=== PATIENT | female | born 1965 | race Asian ===

== ENCOUNTER 2020-03-12 17:19 | Inpatient (IN) | payer MEDICARE, MEDICAID ==
[~2020-03-12] VITALS: Ht 160 cm; Wt 88.8 kg
--- NOTE | 2020-03-12 11:55 | NUR ---
NURSE NOTES: Received admission orders from Dr. Faye. Will note and carry out. Addendum: 03/13/20 at 5430 by Agnieszka Nguyen Mai, RN WRONG DATE & TIME! CORRECT DATE & TIME IS 03/12/20 @ 1995
[~2020-03-12 17:19] MED LIST: ASPIRIN81 MG ORAL; ATORVASTATIN CA40 MG ORAL; CARVEDILOL6.25 MG ORAL; DIOVAN160 MG ORAL; FUROSEMIDE40 MG ORAL; GABAPENTIN100 MG ORAL; LANTUS SOL100 UNIT/1 SUBQ; LEVEMIR FL100 UNIT/1 SUBQ; METOLAZONE5 MG PO; NOVOLOG100 UNIT/3 SUBQ; POTASSIUM CHLO20 ME2 ORAL; STARLIX120 MG ORAL; ZOLPIDEM TARTRA10 MG ORAL
--- NOTE | 2020-03-12 17:36 | Emergency Room Report ---
History of Present Illness General Chief Complaint: Generalized Weakness Source: Patient, EMS Present Illness HPI Patient is a 54-year-old female past medical history of end-stage renal disease on peritoneal dialysis daily who presents to the ER complaining of generalized weakness. Patient states that her was admitted to the hospital 4 days ago for some sort of intestinal infection and since he does her peritoneal dialysis for her she has not had dialysis performed for the past 4 days. She complains of shortness of breath that started today. She denies any fever or chills. She denies any cough or chest pain. She denies any abdominal pain, nausea or vomiting. Patient states that the fluid in her dialysis late 4 days ago was clear. Allergies: Coded Allergies: No Known Allergies (Unverified , 11/24/15) COVID-19 Screening Contact w/high risk pt: No Recent Travel to affected area: No Experienced COVID-19 symptoms?: No COVID-19 Testing performed EDUCATION SUPERVISOR: No Patient History Reviewed Nursing Documentation: PMH: Agreed; PSxH: Agreed Nursing Documentation-PMH Hx Cardiac Problems: Yes Hx Hypertension: Yes Hx Diabetes: Yes Hx Cancer: No Hx Gastrointestinal Problems: No Hx Dialysis: Yes - ESRD Hx Neurological Problems: No Review of Systems All Other Systems: negative except mentioned in HPI Physical Exam Vital Signs Date Time Temp Pulse Resp B/P (MAP) Pulse Ox O2 Delivery O2 Flow Rate FiO2 03/12/20 17:14 98.6 74 19 158/74 (102) 93 Nasal Cannula 2.0 Sp02 EP Interpretation: abnormal General Appearance: no apparent distress, alert, GCS 15, non-toxic Head: normocephalic, atraumatic Eyes: bilateral eye normal inspection, bilateral eye PERRL ENT: hearing grossly normal, normal pharynx, no angioedema, normal voice Neck: full range of motion, supple/symm/no masses Respiratory: rales, other - RLL diminished breath sounds Cardiovascular #1: regular rate, rhythm, no edema Gastrointestinal: normal bowel sounds, non tender, soft, non-distended, no guarding, no rebound, other - dialysis catheter in place, clear diasylate in the tube Rectal: deferred Genitourinary: normal inspection, no CVA tenderness Musculoskeletal: back normal, normal range of motion, no calf tenderness, non- tender, swelling Neurologic: keg filler III-XII nml as tested, oriented x3 Psychiatric: no suicidal/homicidal ideation Skin: no rash Lymphatic: no adenopathy Medical Decision Making Diagnostic Impression: Primary Impression: Pleural effusion Additional Impressions: Pneumonia Anemia UTI (urinary tract infection) Hyperkalemia Chronic renal failure ER Course Patient fluid overloaded. Patient has missed her last 4 dialysis sessions. Patient's chest x-ray also demonstrates a right sided infiltrate. Patient also has UTI. Patient has been pancultured. Patient started on broad-spectrum IV antibiotics vancomycin as well as cefepime. Patient's potassium is 6.7. She has been given sodium bicarbonate, calcium gluconate, insulin and dextrose, Lasix since she still makes urine and Kayexalate. COVID-19 PCR sent and pending. Unable to do peritoneal dialysis at this facility. I spoke with the patient's admitting doctor who will arrange for a temporary non-tunneled catheter to be placed so that she can obtain dialysis while she is here. EKG Diagnostic Results EKG Time: 18:45 EP Interpretation: mD Pennie Rate: normal Rhythm: NSR ST Segments: no acute changes ASA given to the pt in ED: No Rhythm Strip Diag. Results Rhythm Strip Time: 21:15 EP Interpretation: yes - MD Pennie Rate: 90 Rhythm: NSR, no PVC's, no ectopy Chest X-Ray Diagnostic Results Chest X-Ray Diagnostic Results : Chest X-Ray Ordered: Yes # of Views/Limited/Complete: 1 View Indication: Shortness of Breath EP Interpretation: Yes Interpretation: no pneumothorax, other - R lower and middle lobe consolidation, R sided moderate pleural effusion Impression: Other - pneumonia and R sided pleural efussion Electronically Signed by: Beth Casper MD Last Vital Signs Date Time Temp Pulse Resp B/P (MAP) Pulse Ox O2 Delivery O2 Flow Rate FiO2 03/12/20 17:14 98.6 74 19 158/74 (102) 93 Nasal Cannula 2.0 Disposition: ADMITTED INPATIENT Condition: Critical Physician Consult: Dr. St at 915pm Beth Casper M.D. March 12, 2020 17:36
[2020-03-12] MEDS ORDERED: Vancomycin 1.25gm/NS Premix 275 ML IVPB STA (17:55)
[2020-03-12] MEDS ORDERED: Cefepime HCl 2 GM in D5W 55 ML IVPB ONE (18:00)
--- NOTE | 2020-03-12 18:01 | Diagnostic Imaging Report ---
EXAM: XR Chest, 1 View CLINICAL HISTORY: SOB TECHNIQUE: Frontal view of the chest. COMPARISON: 11/28/2015. FINDINGS: Lungs: Right lung infiltrates/edema, cannot exclude underlying pulmonary lesion. Pleural space: Moderate right pleural effusion. No pneumothorax. Heart: Cardiomegaly. Mediastinum: Unremarkable. Bones/joints: Unremarkable. Tubes, lines and devices: Left chest cardiac pacer. IMPRESSION: 1. Right lung infiltrates/edema, cannot exclude underlying pulmonary lesion. 2. Moderate right pleural effusion.
[2020-03-12] MEDS ORDERED: Vancomycin 1.5gm/NS Premix 275 ML IVPB STA (18:20)
[2020-03-12] MEDS ORDERED: Vancomycin 1.5gm vial IVPB ONE (18:27)
[2020-03-12 18:37] LABS: HEMATOCRIT 29.7 % (37.0-47.0); MEAN CORPUSCULAR VOLUME 99 FL (80-99); PLATELET COUNT 186 K/UL (150-450); WHITE BLOOD COUNT 11.1 K/UL (4.8-10.8)
[2020-03-12 18:45] LABS: APPEARANCE,URINE SLIGHTLY CLOUDY; BILIRUBIN, URINE NEGATIVE (NEGATIVE); COLOR,URINE PALE YELLOW; GLUCOSE, URINE (UA) 3+ (NEGATIVE); KETONES,URINE NEGATIVE (NEGATIVE); LEUKOCYTE ESTERASE ,URINE 3+ (NEGATIVE); NITRITE,URINE NEGATIVE (NEGATIVE); PH,URINE 5 (4.5-8.0); PROTEIN,URINE 4+ (NEGATIVE); UROBILINOGEN,URINE NORMAL MG/DL (0.0-1.0)
--- NOTE | 2020-03-12 18:45 | NUR ---
ED Nurse Note:pt. was BIBAom home with c/o generalized weakness, she is havn't had her peritonial dialysis for past 4 days, pt. is A/Ox4, blood and urine sent to labs, given IV antibiotics
[2020-03-12 19:24] VITALS: BP 158/74
--- NOTE | 2020-03-12 19:54 | NUR ---
ED Nurse Note: Received the report from Ramirez german. Additional lab sent. Pt is A) x 4 and VVS. Provided sandwitch and juice. Attached meter changes records clerk.
--- NOTE | 2020-03-12 20:27 | Consultation ---
History of Present Illness General Chief Complaint: Generalized Weakness Reason for Consultation: ESRD on PD Present Illness HPI This is a 54 year old female with past medical history of ESRD on PD, IDDM II, essential hypertension, hyperlipidemia and insomnia presenting with chest discomfort and leg swelling. Patient reports that her who assists her with the PD ended up in the hospital 5 days ago and since then she has not received her routine PD. Patient complains of feeling pressure all over her body due to volume overload. Patient also complains of productive cough. Denies any fever, chills, nausea, vomiting diarrhea, dysuria. On arrival to the ED, vitals were significant for BP: 158/72 mmHg. The CMP showed Hyperkalemia: 6.7, BUN: 108 and Cr: 12.5. The UA was significant for highly elevated WBC and 3+ LE. The CXR significant for R pleural effusion and right sided infiltrate suggestive of possible pneumonia. She has been on PD for the past one year primary nephrogist Dr. Bruno weiss Allergies: Coded Allergies: No Known Allergies (Unverified , 11/24/15) Medication History Scheduled Aspirin* (Aspirin*), 81 MG ORAL DAILY, (Reported) Atorvastatin Calcium* (Atorvastatin Calcium*), 40 MG ORAL BEDTIME, (Reported) Carvedilol* (Carvedilol*), 6.25 MG ORAL DAILY, (Reported) Furosemide* (Lasix*), 40 MG ORAL DAILY, (Reported) Gabapentin* (Gabapentin*), 100 MG ORAL THREE TIMES A DAY, (Reported) Insulin Glargine (Lantus), 10 UNITS SUBQ BEDTIME Nateglinide (Starlix), 120 MG ORAL TIAC Potassium Chloride (Potassium Chloride), 20 MEQ ORAL DAILY, (Reported) Scheduled PRN Zolpidem Tartrate* (Zolpidem Tartrate*), 10 MG ORAL BEDTIME PRN for Insomnia, ( Reported) Patient History Healthcare decision maker Resuscitation status Advanced Directive on File Review of Systems Constitutional: Reports: malaise, weakness Respiratory: Reports: cough, shortness of breath, wheezing Cardiovascular: Reports: palpitations Gastrointestinal: Denies: no symptoms, see HPI, abdominal pain, constipation, diarrhea, nausea, vomiting, melena, hematemesis, other Genitourinary: Denies: no symptoms, see HPI, discharge, dysuria, frequency, hematuria, pain, retention, incontinence, urgency, vag bleed/dc, other Musculoskeletal: Denies: no symptoms, see HPI, back pain, gout, joint pain, joint swelling, muscle pain, muscle stiffness, other Skin: Denies: no symptoms, see HPI, rash, change in color, change in hair/nails , dryness, lesions, other Psychiatric: Denies: no symptoms, see HPI, prior hx, anxiety, depressed feelings, emotional problems, SI, HI, hallucinations, other Neurological: Denies: no symptoms, see HPI, headache, numbness, paresthesia, seizure, tingling, tremors, focal weakness, syncope, dizziness, other Endocrine: Denies: no symptoms, see HPI, excessive sweating, flushing, intolerance to temperature, increased thirst, increased urine, unexplained weight loss, other Hematologic/Lymphatic: Denies: no symptoms, see HPI, anemia, blood clots, easy bleeding, easy bruising, swollen glands, diathesis, other All Other Systems: negative except mentioned in HPI Physical Exam General Appearance: WD/WN, no apparent distress Lines, tubes and drains: peripheral HEENT: normocephalic Neck: non-tender Respiratory/Chest: rhonchi - bilaterally Cardiovascular/Chest: normal peripheral pulses Abdomen: normal bowel sounds, non tender, soft, hypoactive bowel sounds, other - PD catheter clean dry intact Extremities: normal range of motion Neurologic: alert, oriented x 3 Last 24 Hour Vital Signs Date Time Temp Pulse Resp B/P (MAP) Pulse Ox O2 Delivery O2 Flow Rate FiO2 03/12/20 19:24 98.6 74 19 158/74 96 Nasal Cannula 2.0 03/12/20 19:24 74 19 Nasal Cannula 2.0 03/12/20 17:14 98.6 74 19 158/74 (102) 93 Nasal Cannula 2.0 Laboratory Tests Test 03/12/20 17:50 03/12/20 18:10 03/12/20 19:50 White Blood Count 11.1 K/UL (4.8-10.8) H Red Blood Count 3.00 M/UL (4.20-5.40) L Hemoglobin 9.0 G/DL (12.0-16.0) L Hematocrit 29.7 % (37.0-47.0) L Mean Corpuscular Volume 99 FL (80-99) Mean Corpuscular Hemoglobin 29.9 PG (27.0-31.0) Mean Corpuscular Hemoglobin Concent 30.2 G/DL (32.0-36.0) L Red Cell Distribution Width 15.0 % (11.6-14.8) H Platelet Count 186 K/UL (150-450) Mean Platelet Volume 8.4 FL (6.5-10.1) Neutrophils (%) (Auto) % (45.0-75.0) Lymphocytes (%) (Auto) % (20.0-45.0) Monocytes (%) (Auto) % (1.0-10.0) Eosinophils (%) (Auto) % (0.0-3.0) Basophils (%) (Auto) % (0.0-2.0) Differential Total Cells Counted 100 Neutrophils % (Manual) 87 % (45-75) H Lymphocytes % (Manual) 9 % (20-45) L Monocytes % (Manual) 2 % (1-10) Eosinophils % (Manual) 1 % (0-3) Basophils % (Manual) 1 % (0-2) Band Neutrophils 0 % (0-8) Nucleated Red Blood Cells 1 /100 WBC Platelet Estimate Adequate Platelet Morphology Normal Polychromasia 1+ Anisocytosis 1+ Macrocytosis 1+ Prothrombin Time 11.1 SEC (9.30-11.50) Prothromb Time International Ratio 1.0 (0.9-1.1) Activated Partial Thromboplast Time 31 SEC (23-33) Lactic Acid Level 0.80 mmol/L (0.4-2.0) Troponin I 0.006 ng/mL (0.000-0.056) Urine Color Pale yellow Urine Appearance Slightly cloudy Urine pH 5 (4.5-8.0) Urine Specific [place] 1.015 (1.005-1.035) Urine Protein 4+ (NEGATIVE) H Urine Glucose (UA) 3+ (NEGATIVE) H Urine Ketones Negative (NEGATIVE) Urine Blood 2+ (NEGATIVE) H Urine Nitrite Negative (NEGATIVE) Urine Bilirubin Negative (NEGATIVE) Urine Urobilinogen Normal MG/DL (0.0-1.0) Urine Leukocyte Esterase 3+ (NEGATIVE) H Urine RBC 2-4 /HPF (0 - 2) H Urine WBC Tntc /HPF (0 - 2) H Urine Squamous Epithelial Cells Occasional /LPF Urine Bacteria Few /HPF (NONE) Sodium Level Pending Potassium Level Pending Chloride Level Pending Carbon Dioxide Level Pending Blood Urea Nitrogen Pending Creatinine Pending Estimat Glomerular Filtration Rate Pending Glucose Level Pending Calcium Level Pending Magnesium Level Pending Total Bilirubin Pending Aspartate Amino Transf (AST/SGOT) Pending Alanine Aminotransferase (ALT/SGPT) Pending Alkaline Phosphatase Pending Total Creatine Kinase Pending Pro-B-Type Natriuretic Peptide Pending Total Protein Pending Albumin Pending Globulin Pending Height (Feet): 5 Height (Inches): 3.00 Weight (Pounds): 200 Assessment/Plan Diagnosis [place]: #ESRD in PD- missed PD due to not being available to help #hyperkalemia #volume overload #possible pneumonia #IDDM #HTN #HLD - admit inpatient - place HD line for emergent HD - insulin. D50, kayexalate, lasix - antibiotics per ID - pulm eval - BG control - ISS - continue coreg - continue lasix - continue lantus - check iron panel, ferritin - check PTH, vit D - monitor BMP, mag, phos daily time spent 70 min > 50% on care coordination and counseling Poli St M.D. March 12, 2020 20:27
[2020-03-12] MEDS ORDERED: fentaNYL 100 mcg/2 mL IV ONE (20:45)
[2020-03-12 21:01] LABS: ALANINE AMINOTRANSFERASE 9 U/L (12-78); ALBUMIN 2.6 G/DL (3.4-5.0); ALBUMIN/GLOBULIN RATIO 0.6 (1.0-2.7); ALKALINE PHOSPHATASE 80 U/L (46-116); ANION GAP 17 mmol/L (5-15); ASPARTATE AMINO TRANSFERASE 11 U/L (15-37); BILIRUBIN,TOTAL 0.4 MG/DL (0.2-1.0); BLOOD UREA NITROGEN 108 mg/dL (7-18); CALCIUM 8.5 MG/DL (8.5-10.1); CARBON DIOXIDE 19 MMOL/L (21-32); CHLORIDE 102 MMOL/L (98-107); CREATINE KINASE 157 U/L (26-308); CREATININE 12.5 MG/DL (0.55-1.30); SODIUM 140 MMOL/L (136-145)
[2020-03-12 21:03] LABS: POTASSIUM 6.7 MMOL/L (3.5-5.1)
[2020-03-12] MEDS ORDERED: Calcium Gluconate 1gm/10ml vial IVP ONE (21:15)
[2020-03-12] MEDS ORDERED: Sodium Polystyrene Sulfonate 15gm Powder ORAL ONE (21:15)
[2020-03-12] MEDS ORDERED: Insulin Human Regular 100units/ml 3ml IV ONE (21:15)
[2020-03-12] MEDS ORDERED: Sodium Bicarbonate 50ml Carp IV ONE (21:15)
--- NOTE | 2020-03-12 21:35 | History and Physical ---
History of Present Illness General Date patient seen: March 12, 2020 Reason for Hospitalization: Generalized WeaknessESRDHyperkalemia Present Illness HPI Mrs. Bernardo is a 54 YO F with ESRD on PD, IDDM II, essential hypertension, hyperlipidemia and insomnia presenting with chest discomfort and leg swelling. Patient reports that her who assists her with the PD ended up in the hospital 5 days ago and since then she has not received her routine PD. Patient complains of feeling pressure all over her body due to volume overload. Patient also complains of productive cough. Denies any fever, chills, nausea, vomiting diarrhea, dysuria. On arrival to the ED, vitals were significant for BP: 158/72 mmHg. The CMP showed Hyperkalemia: 6.7, BUN: 108 and Cr: 12.5. The UA was significant for highly elevated WBC and 3+ LE. The CXR significant for R pleural effusion and right sided infiltrate suggestive of possible pneumonia. Patient is being admitted for further observation and medical management. Allergies: Coded Allergies: No Known Allergies (Unverified , 11/24/15) COVID-19 Screening Contact w/high risk pt: No Recent Travel to affected area: No Experienced COVID-19 symptoms?: No Medication History Scheduled Aspirin* (Aspirin*), 81 MG ORAL DAILY, (Reported) Atorvastatin Calcium* (Atorvastatin Calcium*), 40 MG ORAL BEDTIME, (Reported) Carvedilol* (Carvedilol*), 6.25 MG ORAL DAILY, (Reported) Furosemide* (Lasix*), 40 MG ORAL DAILY, (Reported) Gabapentin* (Gabapentin*), 100 MG ORAL THREE TIMES A DAY, (Reported) Insulin Glargine (Lantus), 10 UNITS SUBQ BEDTIME Nateglinide (Starlix), 120 MG ORAL TIAC Potassium Chloride (Potassium Chloride), 20 MEQ ORAL DAILY, (Reported) Scheduled PRN Zolpidem Tartrate* (Zolpidem Tartrate*), 10 MG ORAL BEDTIME PRN for Insomnia, ( Reported) Patient History Healthcare decision maker Resuscitation status Advanced Directive on File Review of Systems Constitutional: Reports: weakness Eye: Reports: no symptoms ENT: Reports: no symptoms Respiratory: Reports: cough, shortness of breath Cardiovascular: Reports: no symptoms, edema Gastrointestinal: Reports: no symptoms Genitourinary: Reports: no symptoms Musculoskeletal: Reports: no symptoms Skin: Reports: no symptoms Psychiatric: Reports: no symptoms Neurological: Reports: no symptoms Endocrine: Reports: no symptoms Hematologic/Lymphatic: Reports: no symptoms Physical Exam General Appearance: alert, mild distress Lines, tubes and drains: peripheral HEENT: normocephalic, atraumatic Neck: non-tender, supple Respiratory/Chest: chest wall non-tender, lungs clear, normal breath sounds, no respiratory distress, no accessory muscle use Cardiovascular/Chest: normal peripheral pulses, normal rate, regular rhythm Abdomen: normal bowel sounds, soft, no organomegaly Extremities: normal range of motion Skin Exam: normal pigmentation Neurologic: alert, oriented x 3 Last 24 Hour Vital Signs Date Time Temp Pulse Resp B/P (MAP) Pulse Ox O2 Delivery O2 Flow Rate FiO2 03/12/20 19:24 98.6 74 19 158/74 96 Nasal Cannula 2.0 03/12/20 19:24 74 19 Nasal Cannula 2.0 03/12/20 17:14 98.6 74 19 158/74 (102) 93 Nasal Cannula 2.0 Laboratory Tests Test 03/12/20 17:50 03/12/20 18:10 03/12/20 20:35 White Blood Count 11.1 K/UL (4.8-10.8) H Red Blood Count 3.00 M/UL (4.20-5.40) L Hemoglobin 9.0 G/DL (12.0-16.0) L Hematocrit 29.7 % (37.0-47.0) L Mean Corpuscular Volume 99 FL (80-99) Mean Corpuscular Hemoglobin 29.9 PG (27.0-31.0) Mean Corpuscular Hemoglobin Concent 30.2 G/DL (32.0-36.0) L Red Cell Distribution Width 15.0 % (11.6-14.8) H Platelet Count 186 K/UL (150-450) Mean Platelet Volume 8.4 FL (6.5-10.1) Neutrophils (%) (Auto) % (45.0-75.0) Lymphocytes (%) (Auto) % (20.0-45.0) Monocytes (%) (Auto) % (1.0-10.0) Eosinophils (%) (Auto) % (0.0-3.0) Basophils (%) (Auto) % (0.0-2.0) Differential Total Cells Counted 100 Neutrophils % (Manual) 87 % (45-75) H Lymphocytes % (Manual) 9 % (20-45) L Monocytes % (Manual) 2 % (1-10) Eosinophils % (Manual) 1 % (0-3) Basophils % (Manual) 1 % (0-2) Band Neutrophils 0 % (0-8) Nucleated Red Blood Cells 1 /100 WBC Platelet Estimate Adequate Platelet Morphology Normal Polychromasia 1+ Anisocytosis 1+ Macrocytosis 1+ Prothrombin Time 11.1 SEC (9.30-11.50) Prothromb Time International Ratio 1.0 (0.9-1.1) Activated Partial Thromboplast Time 31 SEC (23-33) Lactic Acid Level 0.80 mmol/L (0.4-2.0) Troponin I 0.006 ng/mL (0.000-0.056) Urine Color Pale yellow Urine Appearance Slightly cloudy Urine pH 5 (4.5-8.0) Urine Specific [place] 1.015 (1.005-1.035) Urine Protein 4+ (NEGATIVE) H Urine Glucose (UA) 3+ (NEGATIVE) H Urine Ketones Negative (NEGATIVE) Urine Blood 2+ (NEGATIVE) H Urine Nitrite Negative (NEGATIVE) Urine Bilirubin Negative (NEGATIVE) Urine Urobilinogen Normal MG/DL (0.0-1.0) Urine Leukocyte Esterase 3+ (NEGATIVE) H Urine RBC 2-4 /HPF (0 - 2) H Urine WBC Tntc /HPF (0 - 2) H Urine Squamous Epithelial Cells Occasional /LPF Urine Bacteria Few /HPF (NONE) Sodium Level 140 MMOL/L (136-145) Potassium Level 6.7 MMOL/L (3.5-5.1) *H Chloride Level 102 MMOL/L (98-107) Carbon Dioxide Level 19 MMOL/L (21-32) L Anion Gap 17 mmol/L (5-15) H Blood Urea Nitrogen 108 mg/dL (7-18) H Creatinine 12.5 MG/DL (0.55-1.30) H Estimat Glomerular Filtration Rate 3.1 mL/min (>60) Glucose Level 194 MG/DL (74-106) H Calcium Level 8.5 MG/DL (8.5-10.1) Magnesium Level 3.6 MG/DL (1.8-2.4) H Total Bilirubin 0.4 MG/DL (0.2-1.0) Aspartate Amino Transf (AST/SGOT) 11 U/L (15-37) L Alanine Aminotransferase (ALT/SGPT) 9 U/L (12-78) L Alkaline Phosphatase 80 U/L (46-116) Total Creatine Kinase 157 U/L (26-308) Pro-B-Type Natriuretic Peptide > 19729 pg/mL (0-125) H Total Protein 6.9 G/DL (6.4-8.2) Albumin 2.6 G/DL (3.4-5.0) L Globulin 4.3 g/dL Albumin/Globulin Ratio 0.6 (1.0-2.7) L Height (Feet): 5 Height (Inches): 3.00 Weight (Pounds): 200 Assessment/Plan Assessment/Plan: 54 F with HTN, IDDM II, ESRD on PD presenting after missing 5 days of her peritoneal dialysis. 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 -s/p Insulin, D5, Kayexalate and Sodium Bicarb in the ED -Dr. Elias from [facility] consulted for femoral temporary hemodialysis catheter insertion -Dr. St of nephrology consulted. Appreciate further recommendations. -Continue to monitor lytes. -Renal diet. #Cough #R. lung infiltrate concerning for CAP -Started Vancomycin and Cefepime given high risk. -Blood cultures ordered. -ID consult in the A.M for additional recommendations. #Urinary tract infection: -UA significant for highly elevated WBC and 3 + LE. -Follow urine and blood cultures. -Continue with Vancomycin and Cefepime. #Insulin dependant type II DM: -Resume home Lantus 10 U QHS -Insulin Sliding Scale. #Essential hypertension: -Resume home Lasix 40 MG PO QD -Resume home Coreg 6.25 MG PO BID. -Continue to monitor. #Hyperlipidemia: -Resume home Lipitor 40 MG PO QD. I spent~72~minutes on this patient's case, and 35~minutes was dedicated to counseling and/or care coordination. Case discussed extensively with the caregiver (Michael). Case discussed with the RN. I spent an additional 32~min on chart review including prior consult notes, progress notes, procedures, imaging, labs hemodynamics and clinical documentation. Christopher Faye M.D. March 12, 2020 21:35
--- NOTE | 2020-03-12 22:00 | NUR ---
TRANSFER TO FLOOR: Patient transferred to tele as ordered, per MD Alma Rosa. Report given to Pepper. Belongings and admissiomn packet were sent with pt. Pt was transfered with 1 RN and 1 tech with [place]. Droplet precausion and safety were observed.
--- NOTE | 2020-03-12 22:15 | NUR ---
NURSE NOTES: Received pt from ED via [facility]. Pt transferred to [facility] without and incident. Pt is A/Ox4. [place] pt to room and unit. Received report from TAMARA Pope. cardiac monitor technician is in placed; pt is NSR. IV site intact, asymptomatic, and patent. Belonging list checked and signed. Bed is in the lowest position and locked. Call light and bedside table is within reach. No signs/symptoms of acute distress noted at this time. Will contact MD for admission orders.
[2020-03-13] VITALS: BP 158/75
[2020-03-13] MEDS ORDERED: Zolpidem 5mg tab ORAL PRN (01:15)
[2020-03-13] MEDS: Levemir Flexpen SUBQ SCH ×2 (01:30→22:04)
[2020-03-13 04:00] VITALS: BP 155/73
[2020-03-13] MEDS: NovoLOG Insulin Flexpen SUBQ SCH ×4 (06:18→22:04)
--- NOTE | 2020-03-13 07:56 | NUR ---
HAND-OFF: Report given to TAMARA West. Plan of care endorsed.
--- NOTE | 2020-03-13 07:57 | NUR ---
NURSE NOTES: Received patient in bed asleep. O2 via NC in place, no SOB or acute distress. IV line intact. Peritoneal dialysis intact. HOB elevated. Bed locked in lowest position. Call light within reach. Will continue plan of care.
[2020-03-13 08:00] VITALS: BP 163/75
[2020-03-13] MEDS: Carvedilol 6.25mg Tab ORAL SCH ×2 (08:23→18:37)
[2020-03-13] MEDS: Furosemide 40mg tab ORAL SCH (08:24)
[2020-03-13 08:48] LABS: BASOPHILS % (AUTO) 1.5 % (0.0-2.0); EOSINOPHILS % (AUTO) 2.7 % (0.0-3.0); HEMATOCRIT 25.2 % (37.0-47.0); HEMOGLOBIN 8.6 G/DL (12.0-16.0); LYMPHOCYTES % (AUTO) 6.8 % (20.0-45.0); MEAN CORPUSCULAR VOLUME 91 FL (80-99); MONOCYTES % (AUTO) 5.4 % (1.0-10.0); NEUTROPHILS % (AUTO) 83.6 % (45.0-75.0); PLATELET COUNT 184 K/UL (150-450); RED BLOOD COUNT 2.77 M/UL (4.20-5.40); RED CELL DISTRIBUTION WIDTH 13.2 % (11.6-14.8); WHITE BLOOD COUNT 13.2 K/UL (4.8-10.8)
[2020-03-13] MEDS ORDERED: Aspirin Baby 81mg ORAL SCH (09:00)
[2020-03-13] MEDS ORDERED: Heparin 5000 units/ml inj SUBQ SCH (09:00)
--- NOTE | 2020-03-13 09:00 | NUR ---
NURSE NOTES: IV line found out, for reinsertion.
[2020-03-13 09:56] LABS: ALANINE AMINOTRANSFERASE 9 U/L (12-78); ALBUMIN 2.5 G/DL (3.4-5.0); ALBUMIN/GLOBULIN RATIO 0.5 (1.0-2.7); ALKALINE PHOSPHATASE 83 U/L (46-116); ANION GAP 19 mmol/L (5-15); ASPARTATE AMINO TRANSFERASE 16 U/L (15-37); BILIRUBIN,TOTAL 0.5 MG/DL (0.2-1.0); BLOOD UREA NITROGEN 109 mg/dL (7-18); CALCIUM 8.3 MG/DL (8.5-10.1); CARBON DIOXIDE 20 MMOL/L (21-32); CHLORIDE 101 MMOL/L (98-107); CREATININE 12.7 MG/DL (0.55-1.30); PHOSPHORUS 10.5 MG/DL (2.5-4.9); SODIUM 141 MMOL/L (136-145)
[2020-03-13 09:59] LABS: POTASSIUM 6.5 MMOL/L (3.5-5.1)
[2020-03-13] MEDS ORDERED: Lidocaine 1% 10mg/ml/EPI 0.01mg/ml 30ml INJ ONE (10:30)
--- NOTE | 2020-03-13 10:33 | Consultation ---
History of Present Illness General Date patient seen: March 12, 2020 Reason for Hospitalization: Generalized Weakness Present Illness HPI This is a 54-year-old female was very pleasant presented to [facility] for evaluation of generalized weakness fatigue states that she usually has peritoneal dialysis daily but for the past 4 days she has been unable to have it given that her usually helps her provide it at home but her is currently [facility] with potential intestinal cancer and has not been unable to help her and she has deteriorated significantly. In emergency were identified to have a initial potassium of 6.7. Surgery called to evaluate and assist with care patient will likely need urgent dialysis soon depending on medical management and does not have hemodialysis access in. Dialysis in the inpatient setting with her current condition would not be sufficient. Allergies: Coded Allergies: No Known Allergies (Unverified , 11/24/15) COVID-19 Screening Contact w/high risk pt: No Recent Travel to affected area: No Experienced COVID-19 symptoms?: No Medication History Scheduled Aspirin* (Aspirin*), 81 MG ORAL DAILY, (Reported) Atorvastatin Calcium* (Atorvastatin Calcium*), 40 MG ORAL BEDTIME, (Reported) Carvedilol* (Carvedilol*), 6.25 MG ORAL DAILY, (Reported) Furosemide* (Lasix*), 40 MG ORAL DAILY, (Reported) Gabapentin* (Gabapentin*), 100 MG ORAL THREE TIMES A DAY, (Reported) Insulin Glargine (Lantus), 10 UNITS SUBQ BEDTIME Nateglinide (Starlix), 120 MG ORAL TIAC Potassium Chloride (Potassium Chloride), 20 MEQ ORAL DAILY, (Reported) Scheduled PRN Zolpidem Tartrate* (Zolpidem Tartrate*), 10 MG ORAL BEDTIME PRN for Insomnia, ( Reported) Patient History History Provided By: Patient, Medical Record, PMD Healthcare decision maker Resuscitation status Advanced Directive on File Past Medical/Surgical History Past Medical/Surgical History: (1) Dehydration (2) Anemia (3) Pleural effusion (4) UTI (urinary tract infection) (5) Chronic renal failure (6) Pneumonia (7) Hyperkalemia (8) Type 2 diabetes mellitus, uncontrolled (9) Elevated brain natriuretic peptide (BNP) level (10) Azotemia (11) Bronchitis (12) Intractable nausea and vomiting (13) Vomiting (14) Chest pain, rule out acute myocardial infarction (15) Asthma (16) Acute dyspnea (17) Functional quadriplegia Review of Systems Review of Symptoms General ROS: no weight loss or fever Psychological ROS: no depression or mood changes, no memory loss Ophthalmic ROS: no visual changes or eye irritation ENT ROS: no nasal congestion, hearing loss, dizziness Allergy and Immunology ROS: no allergic symptoms or urticaria Hematological and Lymphatic ROS: no swollen glands, unusual bleeding or bruising Endocrine ROS: no polyuria, polydipsia, weight changes, temperature intolerance Respiratory ROS: no cough, shortness of breath, or wheezing Cardiovascular ROS: no chest pain or dyspnea on exertion Gastrointestinal ROS: denies abdominal pain, bright red blood in stool. Musculoskeletal ROS: no myalgias or arthralgias Neurological ROS: no TIA or stroke symptoms Dermatological ROS: no new or changing skin lesions, rashes or pruritis Physical Exam Physical Exam General appearance: alert, cooperative, no distress, appears stated age Head: Normocephalic, without obvious abnormality, atraumatic Eyes: conjunctivae/corneas clear. PERRL, EOM's intact. Fundi benign Throat: Lips, mucosa, and tongue normal. Teeth and gums normal Neck: supple, symmetrical, trachea midline, no adenopathy, thyroid: not enlarged, symmetric, no tenderness/mass/nodules, no carotid bruit and no JVD Lungs: clear to auscultation bilaterally Heart: regular rate and rhythm, S1, S2 normal, no murmur, click, rub or gallop Abdomen: soft, non-tender. Bowel sounds normal. No masses, no organomegaly ++ PD cath okay Extremities: extremities normal, atraumatic, no cyanosis or edema Pulses: 2+ and symmetric Skin: Skin color, texture, turgor normal. No rashes or lesions Neurologic: Grossly normal Last 24 Hour Vital Signs Date Time Temp Pulse Resp B/P (MAP) Pulse Ox O2 Delivery O2 Flow Rate FiO2 03/13/20 08:27 163/75 03/13/20 08:23 86 163/75 03/13/20 08:00 98.8 86 18 163/75 (104) 93 03/13/20 04:00 79 03/13/20 04:00 98.5 79 19 155/73 (100) 98 03/13/20 00:00 80 03/13/20 00:00 97.7 83 19 158/75 (102) 98 03/12/20 22:44 Nasal Cannula 2.0 03/12/20 22:44 81 03/12/20 22:00 98.6 74 19 158/ 96 Nasal Cannula 2.0 03/12/20 21:21 98.6 03/12/20 19:24 98.6 74 19 158/74 96 Nasal Cannula 2.0 03/12/20 19:24 74 19 Nasal Cannula 2.0 03/12/20 17:14 98.6 74 19 158/ (102) 93 Nasal Cannula 2.0 Laboratory Tests Test 03/12/20 17:50 03/12/20 18:10 03/12/20 20:35 03/13/20 08:00 White Blood Count 11.1 K/UL (4.8-10.8) H 13.2 K/UL (4.8-10.8) H Red Blood Count 3.00 M/UL (4.20-5.40) L 2.77 M/UL (4.20-5.40) L Hemoglobin 9.0 G/DL (12.0-16.0) L 8.6 G/DL (12.0-16.0) L Hematocrit 29.7 % (37.0-47.0) L 25.2 % (37.0-47.0) L Mean Corpuscular Volume 99 FL (80-99) 91 FL (80-99) # Mean Corpuscular Hemoglobin 29.9 PG (27.0-31.0) 31.1 PG (27.0-31.0) H Mean Corpuscular Hemoglobin Concent 30.2 G/DL (32.0-36.0) L 34.2 G/DL (32.0-36.0) Red Cell Distribution Width 15.0 % (11.6-14.8) H 13.2 % (11.6-14.8) Platelet Count 186 K/UL (150-450) 184 K/UL (150-450) Mean Platelet Volume 8.4 FL (6.5-10.1) 7.0 FL (6.5-10.1) Neutrophils (%) (Auto) % (45.0-75.0) 83.6 % (45.0-75.0) H Lymphocytes (%) (Auto) % (20.0-45.0) 6.8 % (20.0-45.0) L Monocytes (%) (Auto) % (1.0-10.0) 5.4 % (1.0-10.0) Eosinophils (%) (Auto) % (0.0-3.0) 2.7 % (0.0-3.0) Basophils (%) (Auto) % (0.0-2.0) 1.5 % (0.0-2.0) Differential Total Cells Counted 100 Neutrophils % (Manual) 87 % (45-75) H Lymphocytes % (Manual) 9 % (20-45) L Monocytes % (Manual) 2 % (1-10) Eosinophils % (Manual) 1 % (0-3) Basophils % (Manual) 1 % (0-2) Band Neutrophils 0 % (0-8) Nucleated Red Blood Cells 1 /100 WBC Platelet Estimate Adequate Platelet Morphology Normal Polychromasia 1+ Anisocytosis 1+ Macrocytosis 1+ Prothrombin Time 11.1 SEC (9.30-11.50) Prothromb Time International Ratio 1.0 (0.9-1.1) Activated Partial Thromboplast Time 31 SEC (23-33) Lactic Acid Level 0.80 mmol/L (0.4-2.0) Troponin I 0.006 ng/mL (0.000-0.056) Urine Color Pale yellow Urine Appearance Slightly cloudy Urine pH 5 (4.5-8.0) Urine Specific [place] 1.015 (1.005-1.035) Urine Protein 4+ (NEGATIVE) H Urine Glucose (UA) 3+ (NEGATIVE) H Urine Ketones Negative (NEGATIVE) Urine Blood 2+ (NEGATIVE) H Urine Nitrite Negative (NEGATIVE) Urine Bilirubin Negative (NEGATIVE) Urine Urobilinogen Normal MG/DL (0.0-1.0) Urine Leukocyte Esterase 3+ (NEGATIVE) H Urine RBC 2-4 /HPF (0 - 2) H Urine WBC Tntc /HPF (0 - 2) H Urine Squamous Epithelial Cells Occasional /LPF Urine Bacteria Few /HPF (NONE) Sodium Level 140 MMOL/L (136-145) 141 MMOL/L (136-145) Potassium Level 6.7 MMOL/L (3.5-5.1) *H 6.5 MMOL/L (3.5-5.1) *H Chloride Level 102 MMOL/L (98-107) 101 MMOL/L (98-107) Carbon Dioxide Level 19 MMOL/L (21-32) L 20 MMOL/L (21-32) L Anion Gap 17 mmol/L (5-15) H 19 mmol/L (5-15) H Blood Urea Nitrogen 108 mg/dL (7-18) H 109 mg/dL (7-18) H Creatinine 12.5 MG/DL (0.55-1.30) H 12.7 MG/DL (0.55-1.30) H Estimat Glomerular Filtration Rate 3.1 mL/min (>60) 3.0 mL/min (>60) Glucose Level 194 MG/DL (74-106) H 165 MG/DL (74-106) H Calcium Level 8.5 MG/DL (8.5-10.1) 8.3 MG/DL (8.5-10.1) L Magnesium Level 3.6 MG/DL (1.8-2.4) H 3.5 MG/DL (1.8-2.4) H Total Bilirubin 0.4 MG/DL (0.2-1.0) 0.5 MG/DL (0.2-1.0) Aspartate Amino Transf (AST/SGOT) 11 U/L (15-37) L 16 U/L (15-37) Alanine Aminotransferase (ALT/SGPT) 9 U/L (12-78) L 9 U/L (12-78) L Alkaline Phosphatase 80 U/L (46-116) 83 U/L (46-116) Total Creatine Kinase 157 U/L (26-308) Pro-B-Type Natriuretic Peptide > 39011 pg/mL (0-125) H Total Protein 6.9 G/DL (6.4-8.2) 7.2 G/DL (6.4-8.2) Albumin 2.6 G/DL (3.4-5.0) L 2.5 G/DL (3.4-5.0) L Globulin 4.3 g/dL 4.7 g/dL Albumin/Globulin Ratio 0.6 (1.0-2.7) L 0.5 (1.0-2.7) L Phosphorus Level 10.5 MG/DL (2.5-4.9) H Microbiology Date/Time Source Procedure Growth Status 03/12/20 18:10 Urine,Clean Catch Urine Culture - Preliminary NO GROWTH Resulted 03/12/20 22:12 Rectum Received Height (Feet): 5 Height (Inches): 3.00 Weight (Pounds): 200 Medications Current Medications Medications (Trade) Dose Ordered Sig/Amarilis Route PRN Reason Start Time Stop Time Status Last Admin Dose Admin Acetaminophen/ Hydrocodone Bitart ([place] 5/325) 1 tab Q6H PRN ORAL For Pain 03/13/20 10:15 03/20/20 10:14 Aspirin (ASA) 81 mg DAILY ORAL 03/13/20 09:00 04/27/20 08:59 03/13/20 08:21 Atorvastatin Calcium (Lipitor) 40 mg BEDTIME ORAL 03/13/20 21:00 06/11/20 20:59 Carvedilol (Coreg) 6.25 mg BID ORAL 03/13/20 09:00 04/12/20 08:59 03/13/20 08:23 Cefepime HCl 1 gm/ Dextrose 55 ml @ 110 mls/hr Q24H IVPB 03/13/20 18:00 03/20/20 17:59 Clonidine HCl (Catapres Tab) 0.1 mg Q6H PRN ORAL For High Blood Pressure 03/13/20 01:00 06/11/20 00:59 03/13/20 08:27 Dextrose (Dextrose 50%) 25 ml Q30M PRN IV Hypoglycemia 03/13/20 01:00 06/11/20 00:59 Dextrose (Dextrose 50%) 50 ml Q30M PRN IV Hypoglycemia 03/13/20 01:00 06/11/20 00:59 Furosemide (Lasix) 40 mg DAILY ORAL 03/13/20 09:00 04/12/20 08:59 03/13/20 08:24 Gabapentin (Neurontin) 100 mg THREE TIMES A DAY ORAL 03/13/20 09:00 04/12/20 08:59 03/13/20 08:23 Heparin Sodium (Porcine) (Heparin 5000 units/ml) 5,000 units EVERY 12 HOURS SUBQ 03/13/20 09:00 04/27/20 08:59 03/13/20 08:25 Insulin Aspart (NovoLOG) BEFORE MEALS AND HS SUBQ 03/13/20 06:30 06/11/20 06:29 Insulin Detemir (Levemir) 10 units BEDTIME SUBQ 03/13/20 01:30 06/11/20 01:29 Lidocaine/ Epinephrine (Lidocaine 1%/ Epi 0.01mg 30ml) 1 ml ONCE ONCE INJ 03/13/20 10:30 03/13/20 10:31 Vancomycin HCl (Vanco rx to dose) 1 ea DAILY MISC 03/13/20 09:00 04/12/20 08:59 Zolpidem Tartrate (Ambien) 5 mg BEDTIME PRN ORAL Insomnia 03/13/20 01:15 03/20/20 01:14 Assessment/Plan Problem List: (1) Anemia ICD Codes: D64.9 - Anemia, unspecified SNOMED: 667145042 (2) Pleural effusion ICD Codes: J90 - Pleural effusion, not elsewhere classified SNOMED: 98622502 (3) UTI (urinary tract infection) ICD Codes: N39.0 - Urinary tract infection, site not specified SNOMED: 11741318 (4) Chronic renal failure ICD Codes: N18.9 - Chronic kidney disease, unspecified SNOMED: 27194019 (5) Pneumonia ICD Codes: J18.9 - Pneumonia, unspecified organism SNOMED: 268474209 (6) Dehydration ICD Codes: E86.0 - Dehydration SNOMED: 42487237 (7) Hyperkalemia Assessment & Plan: Leukocytosis hyperkalemia with medical management since seen last night to the course of today patient's potassium is only gone from 6.7 -6.5 and will likely worsen her given condition. She is symptomatic ill- appearing and will require hemodialysis. Does not have access hemodialysis access indicated recommended. Risk benefits alternative discussed patient in detail line placed at bedside. Coags noted labs noted patient chart reviewed in detail We will monitor overnight and place right femoral dialysis line. Please see procedure note. Late entry as patient seen prior HD as per nephrology Okay for diet from surgical standpoint We will follow with recommendations Thank you for let me participate in patient's care ICD Codes: E87.5 - Hyperkalemia SNOMED: 08940432 (8) Type 2 diabetes mellitus, uncontrolled ICD Codes: E11.65 - Type 2 diabetes mellitus with hyperglycemia SNOMED: 648344693 (9) Elevated brain natriuretic peptide (BNP) level ICD Codes: R79.89 - Other specified abnormal findings of blood chemistry SNOMED: 833861889 (10) Azotemia ICD Codes: R79.89 - Other specified abnormal findings of blood chemistry SNOMED: 611281760 (11) Bronchitis ICD Codes: J40 - Bronchitis, not specified as acute or chronic SNOMED: 30725770 (12) Vomiting ICD Codes: R11.10 - Vomiting, unspecified SNOMED: 878735477 (13) Intractable nausea and vomiting ICD Codes: R11.2 - Nausea with vomiting, unspecified SNOMED: 858698248, 702984711 (14) Asthma ICD Codes: J45.909 - Unspecified asthma, uncomplicated SNOMED: 897366682 (15) Chest pain, rule out acute myocardial infarction ICD Codes: R07.9 - Chest pain, unspecified SNOMED: 79015686 (16) Acute dyspnea ICD Codes: R06.00 - Dyspnea, unspecified SNOMED: 297095625 (17) Functional quadriplegia ICD Codes: R53.2 - Functional quadriplegia SNOMED: 440121869104100 Landon Elias March 13, 2020 10:33
--- NOTE | 2020-03-13 10:36 | Operative Note - PDOC ---
Operative Note Operative Note Date of Operation/Procedure: March 13, 2020 Pre-op Diagnosis: Hyperkalemia renal insufficiency sepsis Procedure: Right femoral temporary hemodialysis catheter insertion Post-op Diagnosis: same as pre-op Surgeon: Landon Elias MD Anesthesia: local Specimen: none Condition: stable Estimated Blood Loss: minimal Drains: none Implant(s) used?: No Indications for Procedure This is a 54-year-old female with end-stage renal disease currently on peritoneal dialysis who is missed 4 days given her helps her and he is currently in the a different hospital. She has a potassium of greater than 6 which is not improving significantly medical management and is deteriorating will need hemodialysis spoke with patient's medical teams and nephrology patient does not have access needs asked after hemodialysis until peritoneal dialysis can be resumed. Risk-benefit alternatives discussed patient in detail at the bedside. Patient expressed understanding consented to procedure. Description of Procedure Patient was made comfortable the bedside. His right groin is prepped draped in the same surgical fashion. Local anesthetic was infiltrated. On first pass the right femoral artery was cannulated with a needle immediately removed and pressure held for approximately 20 minutes until hemostasis noted. On second stick right femoral vein was cannulated without complication and guidewire passed to the needle needle removed and discarded. Small skin incision made around the guidewire and dilators used. A temporary hemodialysis catheter was inserted over the guidewire and guidewire removed. Both ports aspirated and flushed without any complication. Line sutured in place. Area over the prior initial past was reapproximated with a suture as well. Dressings were applied. Good hemostasis noted at the end of the procedure. Discussed operative care and plan and ensure procedure evaluation with patient. Discussed with nursing staff will monitor for hematoma formation and/or bleeding. Currently hemostatic and stable. No blood thinners. Thank you Landon Elias March 13, 2020 10:36
[2020-03-13] MEDS: HYDROcodone/Acetamin 5/325 tab ORAL PRN (10:39)
--- NOTE | 2020-03-13 10:54 | General Progress Note ---
Assessment/Plan Assessment/Plan: Assessment #ESRD on PD; malfunctioning PD cath, acutely requiring HD access s/p placement w / associated hyperkalemia presenting at >6 #R/O COVID vs HCAP vs Pulmonary Edema; CXR cannot rule out underlying lesion #Sepsis; Ddx CAP vs PD cath infection, pending paz cultures, peritoneal fluid studies #Uremia/Metabolic Acidosis #HTN #DMII Plan Consultants include surgery s/p HD access, Cardio, Nephro Continue Vancomycin and Cefepime IV, Paz Cx COVID pending , obtain predictive markers Coreg and Atorvastatin, Lasix PO; adjust prn, BP to improve w/ aggressive HD Weight based insulin dosing, goal blood sugar less then 180 while inpatient, Levemir QHS Obtain and Reconcile home meds Maeve/1800 ADA Diet DVT ppx *F/U with nephro; if patient is going to be transitioning to HD permanently will need to arrange outpatient HD and coordinate w/ CM. Subjective Allergies: Coded Allergies: No Known Allergies (Unverified , 11/24/15) Subjective Patient sleeping; states she is doing fine. Note right femoral kiana catheter , previous PD cath noted. Denies nausea and vomiting Objective Last 24 Hour Vital Signs Date Time Temp Pulse Resp B/P (MAP) Pulse Ox O2 Delivery O2 Flow Rate FiO2 03/13/20 08:27 163/75 03/13/20 08:23 86 163/75 03/13/20 08:00 98.8 86 18 163/75 (104) 93 03/13/20 04:00 79 03/13/20 04:00 98.5 79 19 155/73 (100) 98 03/13/20 00:00 80 03/13/20 00:00 97.7 83 19 158/75 (102) 98 03/12/20 22:44 Nasal Cannula 2.0 03/12/20 22:44 81 03/12/20 22:00 98.6 74 19 158/74 96 Nasal Cannula 2.0 03/12/20 21:21 98.6 03/12/20 19:24 98.6 74 19 158/74 96 Nasal Cannula 2.0 03/12/20 19:24 74 19 Nasal Cannula 2.0 03/12/20 17:14 98.6 74 19 158/74 (102) 93 Nasal Cannula 2.0 Laboratory Tests 03/12/20 17:50: White Blood Count 11.1H, Red Blood Count 3.00L, Hemoglobin 9.0L, Hematocrit 29.7L, Mean Corpuscular Volume 99, Mean Corpuscular Hemoglobin 29.9, Mean Corpuscular Hemoglobin Concent 30.2L, Red Cell Distribution Width 15.0H, Platelet Count 186, Mean Platelet Volume 8.4, Neutrophils (%) (Auto) , Lymphocytes (%) (Auto) , Monocytes (%) (Auto) , Eosinophils (%) (Auto) , Basophils (%) (Auto) , Differential Total Cells Counted 100, Neutrophils % ( Manual) 87H, Lymphocytes % (Manual) 9L, Monocytes % (Manual) 2, Eosinophils % ( Manual) 1, Basophils % (Manual) 1, Band Neutrophils 0, Nucleated Red Blood Cells 1, Platelet Estimate Adequate, Platelet Morphology Normal, Polychromasia 1 +, Anisocytosis 1+, Macrocytosis 1+, Prothrombin Time 11.1, Prothromb Time International Ratio 1.0, Activated Partial Thromboplast Time 31, Lactic Acid Level 0.80, Troponin I 0.006 03/12/20 18:10: Urine Color Pale yellow, Urine Appearance Slightly cloudy, Urine pH 5, Urine Specific [place] 1.015, Urine Protein 4+H, Urine Glucose (UA) 3+H, Urine Ketones Negative, Urine Blood 2+H, Urine Nitrite Negative, Urine Bilirubin Negative, Urine Urobilinogen Normal, Urine Leukocyte Esterase 3+H, Urine RBC 2- 4H, Urine WBC TntcH, Urine Squamous Epithelial Cells Occasional, Urine Bacteria Few 03/12/20 20:35: Sodium Level 140, Potassium Level 6.7*H, Chloride Level 102, Carbon Dioxide Level 19L, Anion Gap 17H, Blood Urea Nitrogen 108H, Creatinine 12.5H, Estimat Glomerular Filtration Rate 3.1, Glucose Level 194H, Calcium Level 8.5, Magnesium Level 3.6H, Total Bilirubin 0.4, Aspartate Amino Transf (AST/SGOT) 11L , Alanine Aminotransferase (ALT/SGPT) 9L, Alkaline Phosphatase 80, Total Creatine Kinase 157, Pro-B-Type Natriuretic Peptide > 76077S, Total Protein 6.9 , Albumin 2.6L, Globulin 4.3, Albumin/Globulin Ratio 0.6L 03/13/20 08:00: White Blood Count 13.2H, Red Blood Count 2.77L, Hemoglobin 8.6L, Hematocrit 25.2L, Mean Corpuscular Volume 91#, Mean Corpuscular Hemoglobin 31.1H, Mean Corpuscular Hemoglobin Concent 34.2, Red Cell Distribution Width 13.2, Platelet Count 184, Mean Platelet Volume 7.0, Neutrophils (%) (Auto) 83.6H, Lymphocytes ( %) (Auto) 6.8L, Monocytes (%) (Auto) 5.4, Eosinophils (%) (Auto) 2.7, Basophils (%) (Auto) 1.5, Sodium Level 141, Potassium Level 6.5*H, Chloride Level 101, Carbon Dioxide Level 20L, Anion Gap 19H, Blood Urea Nitrogen 109H, Creatinine 12.7H, Estimat Glomerular Filtration Rate 3.0, Glucose Level 165H, Calcium Level 8.3L, Magnesium Level 3.5H, Total Bilirubin 0.5, Aspartate Amino Transf ( AST/SGOT) 16, Alanine Aminotransferase (ALT/SGPT) 9L, Alkaline Phosphatase 83, Total Protein 7.2, Albumin 2.5L, Globulin 4.7, Albumin/Globulin Ratio 0.5L, Phosphorus Level 10.5H Height (Feet): 5 Height (Inches): 3.00 Weight (Pounds): 200 General Appearance: WD/WN, no apparent distress EENT: PERRL/EOMI Cardiovascular: normal rate, regular rhythm, regularly irregular, other - Right femoral kiana cath Respiratory/Chest: lungs clear, normal breath sounds, no respiratory distress Abdomen: soft, other - PD Cath noted Extremities: normal range of motion Edema: 1+ Pedal (L), 1+ Pedal (R) 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 March 13, 2020 10:54
--- NOTE | 2020-03-13 11:00 | NUR ---
NURSE NOTES: IV line inserted to right wrist g22, patent. For hemodialysis today, right femoral catheter placed by Dr Elias.
[2020-03-13 11:59] VITALS: BP 146/69
--- NOTE | 2020-03-13 12:15 | NUR ---
NURSE NOTES: Potassium level 6.5, Dr St aware with orders noted and carried out.
--- NOTE | 2020-03-13 12:15 | Consultation ---
DATE OF CONSULTATION: 03/13/2020 PULMONARY CONSULTATION CONSULTING PHYSICIAN: Jakob Tracy MD. HISTORY OF PRESENT ILLNESS: This is a 54-year-old female with a history of ESRD on peritoneal dialysis. She came to the hospital with generalized weakness. The patient reports a family member with recent gastrointestinal infection. She unable to obtain her dialysis for the last several days because of lack of caregiver. She also reports shortness of breath. She was seen and worked up in the ER and admitted to the hospital overnight. She has had a hemodialysis catheter placed as well. Imaging studies showed a large right effusion and right lung consolidation. MEDICATIONS: Her current list of medication includes Lipitor, Coreg, antibiotics, clonidine, Lasix, Neurontin, [place], insulin sliding scale, and vancomycin. ALLERGIES: None reported. PAST MEDICAL HISTORY: ESRD on peritoneal dialysis, history of diabetes mellitus, history of hypertension. REVIEW OF SYSTEMS: The patient denies any headaches, hematemesis, melena, hematochezia, night sweats, or weight loss. PHYSICAL EXAMINATION: VITAL SIGNS: Blood pressure 150/70, heart rate 76, respiratory rate ____, O2 saturation 93% on 2 liters oxygen. GENERAL: Reveals a 54-year-old female. HEENT: Unremarkable. CHEST: Shows diminished breath sound, right side. ABDOMEN: Soft. There is a dialysis catheter in place, peritoneal. There is also a new hemodialysis catheter in place. EXTREMITIES: There is no edema. LABORATORY AND DIAGNOSTIC DATA: X-ray chest discussed above shows right effusion as well as right lung consolidation. There is a pacemaker in place as well. Left lung appears to be clear. Laboratory show hemoglobin of 8.6, white count 13,000. Potassium 6.5, creatinine 12.7. IMPRESSION: 1. Large right effusion. 2. Right lung pneumonia. 3. Hyperkalemia. 4. Chronic renal failure on PD. DISCUSSION: The patient needs dialysis. Needs broad-spectrum antibiotics, oxygen. Pulmonary hygiene. We will follow carefully. Jakob Tracy M.D. DR: JULIO JOB#: [id number] CC:
--- NOTE | 2020-03-13 12:19 | Nephrology Progress Note ---
Assessment/Plan Plan #ESRD in PD- missed PD due to not being available to help #hyperkalemia #volume overload #possible pneumonia #IDDM #HTN #HLD - place HD line for emergent HD - STAT HD today - antibiotics per ID - pulm eval - BG control - ISS - continue coreg - continue lasix - continue lantus - check iron panel, ferritin - check PTH, vit D - monitor BMP, mag, phos daily time spent 70 min > 50% on care coordination and counseling Subjective ROS Limited/Unobtainable: No Constitutional: Reports: malaise, weakness HEENT: Denies: no symptoms, eye pain, blurred vision, tearing, double vision, ear pain, ear discharge, nose pain, nose congestion, throat pain, throat swelling, mouth pain, mouth swelling, other Neurologic/Psychiatric: Denies: no symptoms, anxiety, depressed, emotional problems, headache, numbness, paresthesia, pre-existing deficit, seizure, tingling, tremors, weakness, other Subjective feels weak [facility] Objective Objective Last 24 Hour Vital Signs Date Time Temp Pulse Resp B/P (MAP) Pulse Ox O2 Delivery O2 Flow Rate FiO2 03/13/20 11:59 97.9 94 18 146/69 (94) 92 03/13/20 08:27 163/75 03/13/20 08:23 86 163/75 03/13/20 08:00 87 03/13/20 08:00 98.8 86 18 163/75 (104) 93 03/13/20 04:00 79 03/13/20 04:00 98.5 79 19 155/73 (100) 98 03/13/20 00:00 80 03/13/20 00:00 97.7 83 19 158/75 (102) 98 03/12/20 22:44 Nasal Cannula 2.0 03/12/20 22:44 81 03/12/20 22:00 98.6 74 19 158/74 96 Nasal Cannula 2.0 03/12/20 21:21 98.6 03/12/20 19:24 98.6 74 19 158/74 96 Nasal Cannula 2.0 03/12/20 19:24 74 19 Nasal Cannula 2.0 03/12/20 17:14 98.6 74 19 158/74 (102) 93 Nasal Cannula 2.0 Intake and Output 03/12/20 03/13/20 19:00 07:00 # Voids 4 Laboratory Tests 03/12/20 17:50: White Blood Count 11.1H, Red Blood Count 3.00L, Hemoglobin 9.0L, Hematocrit 29.7L, Mean Corpuscular Volume 99, Mean Corpuscular Hemoglobin 29.9, Mean Corpuscular Hemoglobin Concent 30.2L, Red Cell Distribution Width 15.0H, Platelet Count 186, Mean Platelet Volume 8.4, Neutrophils (%) (Auto) , Lymphocytes (%) (Auto) , Monocytes (%) (Auto) , Eosinophils (%) (Auto) , Basophils (%) (Auto) , Differential Total Cells Counted 100, Neutrophils % ( Manual) 87H, Lymphocytes % (Manual) 9L, Monocytes % (Manual) 2, Eosinophils % ( Manual) 1, Basophils % (Manual) 1, Band Neutrophils 0, Nucleated Red Blood Cells 1, Platelet Estimate Adequate, Platelet Morphology Normal, Polychromasia 1 +, Anisocytosis 1+, Macrocytosis 1+, Prothrombin Time 11.1, Prothromb Time International Ratio 1.0, Activated Partial Thromboplast Time 31, Lactic Acid Level 0.80, Troponin I 0.006 03/12/20 18:10: Urine Color Pale yellow, Urine Appearance Slightly cloudy, Urine pH 5, Urine Specific [place] 1.015, Urine Protein 4+H, Urine Glucose (UA) 3+H, Urine Ketones Negative, Urine Blood 2+H, Urine Nitrite Negative, Urine Bilirubin Negative, Urine Urobilinogen Normal, Urine Leukocyte Esterase 3+H, Urine RBC 2- 4H, Urine WBC TntcH, Urine Squamous Epithelial Cells Occasional, Urine Bacteria Few 03/12/20 20:35: Sodium Level 140, Potassium Level 6.7*H, Chloride Level 102, Carbon Dioxide Level 19L, Anion Gap 17H, Blood Urea Nitrogen 108H, Creatinine 12.5H, Estimat Glomerular Filtration Rate 3.1, Glucose Level 194H, Calcium Level 8.5, Magnesium Level 3.6H, Total Bilirubin 0.4, Aspartate Amino Transf (AST/SGOT) 11L , Alanine Aminotransferase (ALT/SGPT) 9L, Alkaline Phosphatase 80, Total Creatine Kinase 157, Pro-B-Type Natriuretic Peptide > [id number], Total Protein 6.9 , Albumin 2.6L, Globulin 4.3, Albumin/Globulin Ratio 0.6L 03/13/20 08:00: White Blood Count 13.2H, Red Blood Count 2.77L, Hemoglobin 8.6L, Hematocrit 25.2L, Mean Corpuscular Volume 91#, Mean Corpuscular Hemoglobin 31.1H, Mean Corpuscular Hemoglobin Concent 34.2, Red Cell Distribution Width 13.2, Platelet Count 184, Mean Platelet Volume 7.0, Neutrophils (%) (Auto) 83.6H, Lymphocytes ( %) (Auto) 6.8L, Monocytes (%) (Auto) 5.4, Eosinophils (%) (Auto) 2.7, Basophils (%) (Auto) 1.5, Sodium Level 141, Potassium Level 6.5*H, Chloride Level 101, Carbon Dioxide Level 20L, Anion Gap 19H, Blood Urea Nitrogen 109H, Creatinine 12.7H, Estimat Glomerular Filtration Rate 3.0, Glucose Level 165H, Calcium Level 8.3L, Magnesium Level 3.5H, Total Bilirubin 0.5, Aspartate Amino Transf ( AST/SGOT) 16, Alanine Aminotransferase (ALT/SGPT) 9L, Alkaline Phosphatase 83, Total Protein 7.2, Albumin 2.5L, Globulin 4.7, Albumin/Globulin Ratio 0.5L, Phosphorus Level 10.5H Height (Feet): 5 Height (Inches): 3.00 Weight (Pounds): 200 Objective General Appearance: WD/WN, no apparent distress Lines, tubes and drains: peripheral HEENT: normocephalic Neck: non-tender Respiratory/Chest: rhonchi - bilaterally Cardiovascular/Chest: normal peripheral pulses Abdomen: normal bowel sounds, non tender, soft, hypoactive bowel sounds, other - PD catheter clean dry intact Extremities: normal range of motion Neurologic: alert, oriented x [address] M.D. March 13, 2020 12:19
--- NOTE | 2020-03-13 12:31 | NUR ---
NURSE NOTES:WOUND CARE NOTES:Pt presented on admission with non-blanching erythema which has resolved at time of this assessment . Pt denied tenderness when sacrum and surrounding areas minimally palpated. Both heels are easily blanchable .No other areas of skin breakdown noted.Pt is able to self reposition and has been educated on preventing skin breakdown. Encouraged to frequently reposition while in bed and to keep heels floated off mattress. Pt verbalized understanding.Moisture Barrier paste with Optifoam drsgs applied to sacrum.Cavilon Skin Barrier applied to each heel and malleoli. Each areas mentioned individually covered with Optifoam drsgs to minimize friction. Tx.Plan:Apply Moisture Barrier Paste to Sacrum. Cover with Optifoam drsg. Change every 3 days and prn. Apply Cavilon Skin Barrier to each heel and malleoli. Cover each site with Optifoam drsgs. Change every 7 days and prn. Reposition at least every 2hours or as tolerated. Re-educate and encourage pt to frequently reposition while in bed. Off-load heels with Pillow.
[2020-03-13] MEDS ORDERED: Calcium Chloride 10% 10ml carpuject IVP ONE (12:45)
[2020-03-13] MEDS ORDERED: Calcium Chloride 100mg/ml Vial IVP ONE (13:00)
[2020-03-13] MEDS ORDERED: Sodium Polystyrene Sulfonate 15gm Powder ORAL SCH (13:00)
[2020-03-13] MEDS ORDERED: Sodium Bicarbonate 50ml Carp IV SCH (13:00)
--- NOTE | 2020-03-13 14:30 | NUR ---
NURSE NOTES: Hemodialysis started c/o VIP.
[2020-03-13 16:00] VITALS: BP 151/58
--- NOTE | 2020-03-13 18:30 | NUR ---
NURSE NOTES: Hemodialysis ended, 4L fluid removed.
[2020-03-13] MEDS: Cefepime HCl 1 GM in D5W 55 ML IVPB SCH (18:36)
[2020-03-13] MEDS: Lyrica 75mg cap ORAL SCH (18:37)
--- NOTE | 2020-03-13 19:30 | NUR ---
HAND-OFF: Report given to Fátima MCDONALD.
--- NOTE | 2020-03-13 19:38 | NUR ---
NURSE NOTES: Received report from TAMARA West. Patient is asleep lying semi-hwang's; resting comfortably. Arousable to verbal and tactile stimuli. No signs of acute distress noted; denies pain at this time. AOx4; able to make needs known. Checked IV site; patent and flushed. No erythema, bleeding, or infiltration noted. Right femoral permcath in place for dialysis access. Bed at lowest position, brakes on, siderails up x3. Call light within reach. Will continue to monitor.
[2020-03-13 20:00] VITALS: BP 149/62
[2020-03-13 20:30] LABS: ALANINE AMINOTRANSFERASE 11 U/L (12-78); ALBUMIN 2.3 G/DL (3.4-5.0); ALBUMIN/GLOBULIN RATIO 0.5 (1.0-2.7); ALKALINE PHOSPHATASE 92 U/L (46-116); ANION GAP 13 mmol/L (5-15); ASPARTATE AMINO TRANSFERASE 15 U/L (15-37); BILIRUBIN,TOTAL 0.5 MG/DL (0.2-1.0); BLOOD UREA NITROGEN 61 mg/dL (7-18); CALCIUM 7.9 MG/DL (8.5-10.1); CARBON DIOXIDE 28 MMOL/L (21-32); CHLORIDE 99 MMOL/L (98-107); CREATININE 8.2 MG/DL (0.55-1.30); POTASSIUM 3.8 MMOL/L (3.5-5.1); SODIUM 139 MMOL/L (136-145)
[2020-03-13] MEDS: Atorvastatin 20mg tab ORAL SCH (22:02)
--- NOTE | 2020-03-13 23:11 | NUR ---
NURSE NOTES: Patient refusing to be changed at this time.
[2020-03-14] VITALS: BP 156/61
[2020-03-14] MEDS: HYDROcodone/Acetamin 5/325 tab ORAL PRN ×2 (02:00→15:11)
[2020-03-14 04:00] VITALS: BP 139/60
[2020-03-14] MEDS: NovoLOG Insulin Flexpen SUBQ SCH ×4 (06:30→21:09)
--- NOTE | 2020-03-14 07:04 | NUR ---
HAND-OFF: Report given to TAMARA Horne. Patient is awake lying semi-hwang's; resting comfortably. On 2L nasal cannula. In stable condition.
--- NOTE | 2020-03-14 07:11 | NUR ---
NURSE NOTES: Received report from Fátima Farrar RN. Patient in semi-Hodges's position, awake, bed in lowest position, call light within reach, side rails up x 3, on 2 liters nasal cannula.
[2020-03-14 08:00] VITALS: BP 148/63
[2020-03-14] MEDS: Carvedilol 6.25mg Tab ORAL SCH ×2 (09:50→18:47)
[2020-03-14] MEDS: Lyrica 75mg cap ORAL SCH ×2 (09:50→18:47)
[2020-03-14] MEDS: Furosemide 40mg tab ORAL SCH (09:50)
--- NOTE | 2020-03-14 10:15 | Pulmonology Progress Note ---
Subjective Interval Events: None new Constitutional: Reports: no symptoms HEENT: Repors: no symptoms Respiratory: Reports: no symptoms Cardiovascular: Reports: no symptoms Gastrointestinal/Abdominal: Reports: no symptoms Genitourinary: Reports: no symptoms Allergies: Coded Allergies: No Known Allergies (Unverified , 11/24/15) Objective Last 24 Hour Vital Signs Date Time Temp Pulse Resp B/P (MAP) Pulse Ox O2 Delivery O2 Flow Rate FiO2 03/14/20 09:50 79 148/63 03/14/20 08:00 98.5 79 18 148/63 (91) 96 03/14/20 04:00 98.1 74 24 139/60 (86) 92 03/14/20 04:00 76 03/14/20 02:09 98.6 03/14/20 00:00 100.7 82 23 156/61 (92) 90 03/14/20 00:00 82 03/13/20 21:00 Nasal Cannula 2.0 03/13/20 20:00 89 03/13/20 20:00 98.8 84 18 149/62 (91) 92 03/13/20 18:37 76 151/58 03/13/20 16:00 72 03/13/20 16:00 98.1 76 18 151/58 (89) 92 03/13/20 12:00 73 03/13/20 11:59 97.9 94 18 146/69 (94) 92 Intake and Output 03/13/20 03/14/20 19:00 07:00 Intake Total 270 ml 118 ml Output Total 4000 ml Balance -3730 ml 118 ml Intake Oral 270 ml Other 118 ml Output Hemodialysis UF 4000 ml # Voids 1 # Bowel Movements 1 General Appearance: no acute distress HEENT: normocephalic Respiratory: chest wall non-tender, lungs clear Cardiovascular: normal peripheral pulses Abdomen: normal bowel sounds Microbiology Date/Time Source Procedure Growth Status 03/12/20 18:00 Blood Blood Culture - Preliminary NO GROWTH AFTER 24 HOURS Resulted 03/12/20 17:50 Blood Blood Culture - Preliminary NO GROWTH AFTER 24 HOURS Resulted 03/12/20 18:10 Urine,Clean Catch Urine Culture - Preliminary Strep Species, Gamma-Hemolytic Resulted 03/12/20 22:12 Rectum Received Laboratory Tests 03/13/20 19:45: Sodium Level 139, Potassium Level 3.8, Chloride Level 99, Carbon Dioxide Level 28, Anion Gap 13, Blood Urea Nitrogen 61H, Creatinine 8.2H, Estimat Glomerular Filtration Rate 5.0, Glucose Level 195H, Calcium Level 7.9L, Total Bilirubin 0.5 , Aspartate Amino Transf (AST/SGOT) 15, Alanine Aminotransferase (ALT/SGPT) 11L , Alkaline Phosphatase 92, Total Protein 6.8, Albumin 2.3L, Globulin 4.5, Albumin/Globulin Ratio 0.5L Current Medications Medications (Trade) Dose Ordered Sig/Amarilis Route PRN Reason Start Time Stop Time Status Last Admin Dose Admin Acetaminophen/ Hydrocodone Bitart ([place] 5/325) 1 tab Q6H PRN ORAL For Pain 03/13/20 10:15 03/20/20 10:14 03/14/20 02:00 Atorvastatin Calcium (Lipitor) 40 mg BEDTIME ORAL 03/13/20 21:00 06/11/20 20:59 03/13/20 22:02 Carvedilol (Coreg) 6.25 mg BID ORAL 03/13/20 09:00 04/12/20 08:59 03/14/20 09:50 Cefepime HCl 1 gm/ Dextrose 55 ml @ 110 mls/hr Q24H IVPB 03/13/20 18:00 03/20/20 17:59 03/13/20 18:36 Clonidine HCl (Catapres Tab) 0.1 mg Q6H PRN ORAL For High Blood Pressure 03/13/20 01:00 06/11/20 00:59 03/13/20 08:27 Dextrose (Dextrose 50%) 25 ml Q30M PRN IV Hypoglycemia 03/13/20 01:00 06/11/20 00:59 Dextrose (Dextrose 50%) 50 ml Q30M PRN IV Hypoglycemia 03/13/20 01:00 06/11/20 00:59 Furosemide (Lasix) 40 mg DAILY ORAL 03/13/20 09:00 04/12/20 08:59 03/14/20 09:50 Insulin Aspart (NovoLOG) BEFORE MEALS AND HS SUBQ 03/13/20 06:30 06/11/20 06:29 03/13/20 22:04 Insulin Detemir (Levemir) 10 units BEDTIME SUBQ 03/13/20 01:30 06/11/20 01:29 5/23/20 22:04 Pregabalin (Lyrica) 75 mg BID ORAL 03/13/20 18:00 04/27/20 17:59 03/14/20 09:50 Vancomycin HCl (Vanco rx to dose) 1 ea DAILY MISC 03/13/20 09:00 04/12/20 08:59 Zolpidem Tartrate (Ambien) 5 mg BEDTIME PRN ORAL Insomnia 03/13/20 01:15 03/20/20 01:14 Assessment/Plan Assessment/Plan IMPRESSION: 1. Large right effusion. 2. Right lung pneumonia. 3. Hyperkalemia. 4. Chronic renal failure on PD. DISCUSSION: Dialysis per renal. Continue broad-spectrum antibiotics, oxygen. Pulmonary hygiene. I will follow carefully. Saturating 96% on 2L/min O2 Eh Huynh Omar Syed MD March 14, 2020 10:15
[2020-03-14 11:19] LABS: HEMOGLOBIN 7.3 G/DL (12.0-16.0); MEAN CORPUSCULAR VOLUME 91 FL (80-99); PLATELET COUNT 152 K/UL (150-450); RED BLOOD COUNT 2.41 M/UL (4.20-5.40); RED CELL DISTRIBUTION WIDTH 12.9 % (11.6-14.8); WHITE BLOOD COUNT 8.7 K/UL (4.8-10.8)
--- NOTE | 2020-03-14 11:41 | Nephrology Progress Note ---
Assessment/Plan Plan #ESRD in PD- missed PD due to not being available to help #hyperkalemia #volume overload #possible pneumonia #IDDM #HTN #HLD - assess need for HD daily-next HD tomorrow - patient prefers to get back on PD when she goes home- currently in the hospital and not able to help with PD at home - start EPO 4k TIW - antibiotics per ID - pulm eval - BG control - ISS - continue coreg - continue lasix - continue lantus - check iron panel, ferritin-> pending - check PTH, vit D-> pending - monitor BMP, mag, phos daily time spent 70 min > 50% on care coordination and counseling Subjective ROS Limited/Unobtainable: No Constitutional: Reports: malaise, weakness HEENT: Denies: no symptoms, eye pain, blurred vision, tearing, double vision, ear pain, ear discharge, nose pain, nose congestion, throat pain, throat swelling, mouth pain, mouth swelling, other Genitourinary: Denies: no symptoms, burning, discharge, frequency, flank pain, hematuria, incontinence, pain, urgency, other Neurologic/Psychiatric: Denies: no symptoms, anxiety, depressed, emotional problems, headache, numbness, paresthesia, pre-existing deficit, seizure, tingling, tremors, weakness, other Subjective underwent HD yesterday hemoglobin downtrending will start epo Objective Objective Last 24 Hour Vital Signs Date Time Temp Pulse Resp B/P (MAP) Pulse Ox O2 Delivery O2 Flow Rate FiO2 03/14/20 10:20 98.5 03/14/20 09:50 79 148/63 03/14/20 08:00 98.5 79 18 148/63 (91) 96 03/14/20 04:00 98.1 74 24 139/60 (86) 92 03/14/20 04:00 76 03/14/20 02:09 98.6 03/14/20 00:00 100.7 82 23 156/61 (92) 90 03/14/20 00:00 82 03/13/20 21:00 Nasal Cannula 2.0 03/13/20 20:00 89 03/13/20 20:00 98.8 84 18 149/62 (91) 92 03/13/20 18:37 76 151/58 03/13/20 16:00 72 03/13/20 16:00 98.1 76 18 151/58 (89) 92 03/13/20 12:00 73 03/13/20 11:59 97.9 94 18 146/69 (94) 92 Intake and Output 03/13/20 03/14/20 19:00 07:00 Intake Total 270 ml 118 ml Output Total 4000 ml Balance -3730 ml 118 ml Intake Oral 270 ml Other 118 ml Output Hemodialysis UF 4000 ml # Voids 1 # Bowel Movements 1 Laboratory Tests 03/13/20 19:45: Sodium Level 139, Potassium Level 3.8, Chloride Level 99, Carbon Dioxide Level 28, Anion Gap 13, Blood Urea Nitrogen 61H, Creatinine 8.2H, Estimat Glomerular Filtration Rate 5.0, Glucose Level 195H, Calcium Level 7.9L, Total Bilirubin 0.5 , Aspartate Amino Transf (AST/SGOT) 15, Alanine Aminotransferase (ALT/SGPT) 11L , Alkaline Phosphatase 92, Total Protein 6.8, Albumin 2.3L, Globulin 4.5, Albumin/Globulin Ratio 0.5L 03/14/20 10:10: Sodium Level [Pending], Potassium Level [Pending], Chloride Level [Pending], Carbon Dioxide Level [Pending], Blood Urea Nitrogen [Pending], Creatinine [ Pending], Estimat Glomerular Filtration Rate [Pending], Glucose Level [Pending] , Calcium Level [Pending], Total Bilirubin [Pending], Aspartate Amino Transf ( AST/SGOT) [Pending], Alanine Aminotransferase (ALT/SGPT) [Pending], Alkaline Phosphatase [Pending], Total Protein [Pending], Albumin [Pending], Globulin [ Pending], White Blood Count 8.7, Red Blood Count 2.41L, Hemoglobin 7.3L, Hematocrit 22.0L, Mean Corpuscular Volume 91, Mean Corpuscular Hemoglobin 30.2, Mean Corpuscular Hemoglobin Concent 33.2, Red Cell Distribution Width 12.9, Platelet Count 152, Mean Platelet Volume 6.5, Neutrophils (%) (Auto) , Lymphocytes (%) (Auto) , Monocytes (%) (Auto) , Eosinophils (%) (Auto) , Basophils (%) (Auto) , Neutrophils % (Manual) [Pending], Lymphocytes % (Manual) [Pending], Platelet Estimate [Pending], Platelet Morphology [Pending], Calcium ( Send out) [Pending], Phosphorus Level [Pending], Magnesium Level [Pending], Iron Level [Pending], Unsaturated Iron Binding [Pending], Ferritin [Pending], Vitamin D 25-Hydroxy [Pending], 25-Hydroxy Vitamin D2 [Pending], 25-Hydroxy Vitamin D3 [Pending], Parathyroid Hormone (Intact) [Pending], Random Vancomycin Level [Pending] Height (Feet): 5 Height (Inches): 3.00 Weight (Pounds): 195 Objective General Appearance: WD/WN, no apparent distress Lines, tubes and drains: peripheral HEENT: normocephalic Neck: non-tender Respiratory/Chest: rhonchi - bilaterally Cardiovascular/Chest: normal peripheral pulses Abdomen: normal bowel sounds, non tender, soft, hypoactive bowel sounds, other - PD catheter clean dry intact Extremities: normal range of motion Neurologic: alert, oriented x [address] M.D. March 14, 2020 11:41
[2020-03-14 11:43] LABS: ALANINE AMINOTRANSFERASE 11 U/L (12-78); ALBUMIN 2.2 G/DL (3.4-5.0); ALBUMIN/GLOBULIN RATIO 0.5 (1.0-2.7); ALKALINE PHOSPHATASE 84 U/L (46-116); ANION GAP 14 mmol/L (5-15); ASPARTATE AMINO TRANSFERASE 13 U/L (15-37); BILIRUBIN,TOTAL 0.4 MG/DL (0.2-1.0); BLOOD UREA NITROGEN 72 mg/dL (7-18); CALCIUM 7.6 MG/DL (8.5-10.1); CARBON DIOXIDE 27 MMOL/L (21-32); CHLORIDE 98 MMOL/L (98-107); CREATININE 9.2 MG/DL (0.55-1.30); PHOSPHORUS 8.6 MG/DL (2.5-4.9); POTASSIUM 4.3 MMOL/L (3.5-5.1); SODIUM 139 MMOL/L (136-145)
[2020-03-14 11:45] LABS: % IRON SATURATION 21 % (15-50); IRON 31 ug/dL (50-175); TOTAL IRON BINDING CAPACITY 146 ug/dL (250-450)
[2020-03-14] MEDS ORDERED: traMADol 50mg tab ORAL PRN (11:45)
[2020-03-14 12:00] VITALS: BP 142/63
--- NOTE | 2020-03-14 12:10 | Internal Med Progress Note ---
Subjective Date of Service: March 14, 2020 Physician Name Emilie Davis Attending Physician Poli St M.D. Current Medications Medications (Trade) Dose Ordered Sig/Amarilis Route PRN Reason Start Time Stop Time Status Last Admin Dose Admin Acetaminophen/ Hydrocodone Bitart ([place] 5/325) 1 tab Q6H PRN ORAL Mild Pain (Pain Scale 1-3) 03/14/20 11:45 03/20/20 10:14 Atorvastatin Calcium (Lipitor) 40 mg BEDTIME ORAL 03/13/20 21:00 06/11/20 20:59 03/13/20 22:02 Carvedilol (Coreg) 6.25 mg BID ORAL 03/13/20 09:00 04/12/20 08:59 03/14/20 09:50 Cefepime HCl 1 gm/ Dextrose 55 ml @ 110 mls/hr Q24H IVPB 03/13/20 18:00 03/20/20 17:59 03/13/20 18:36 Clonidine HCl (Catapres Tab) 0.1 mg Q6H PRN ORAL For High Blood Pressure 03/13/20 01:00 06/11/20 00:59 03/13/20 08:27 Dextrose (Dextrose 50%) 25 ml Q30M PRN IV Hypoglycemia 03/13/20 01:00 06/11/20 00:59 Dextrose (Dextrose 50%) 50 ml Q30M PRN IV Hypoglycemia 03/13/20 01:00 06/11/20 00:59 Epoetin Gustabo (Epoetin Gustabo(ESRD on dialysis)) 4,000 unit SUN-SUN-SUN SUBQ 03/15/20 21:00 06/13/20 20:59 Furosemide (Lasix) 40 mg DAILY ORAL 03/13/20 09:00 04/12/20 08:59 03/14/20 09:50 Insulin Aspart (NovoLOG) BEFORE MEALS AND HS SUBQ 03/13/20 06:30 06/11/20 06:29 03/14/20 11:45 Insulin Detemir (Levemir) 10 units BEDTIME SUBQ 03/13/20 01:30 06/11/20 01:29 03/13/20 22:04 Pregabalin (Lyrica) 75 mg BID ORAL 03/13/20 18:00 04/27/20 17:59 03/14/20 09:50 Tramadol HCl (Ultram) 50 mg Q6H PRN ORAL For Pain (4-10) 03/14/20 11:45 03/21/20 11:44 Vancomycin HCl (Vanco rx to dose) 1 ea DAILY MISC 03/13/20 09:00 04/12/20 08:59 Zolpidem Tartrate (Ambien) 5 mg BEDTIME PRN ORAL Insomnia 03/13/20 01:15 03/20/20 01:14 Allergies: Coded Allergies: No Known Allergies (Unverified , 11/24/15) Subjective Patient doing well; WBC has normalized. Per nephro, patient prefers to stay on PD at home, so will continue to monitor in house to assess if this is viable. Continue HD per nephro via Eric. Patient states she is feeling better today. Vitals are WNL. 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 Laboratory Tests Test 03/13/20 19:45 03/14/20 10:10 Sodium Level 139 MMOL/L (136-145) 139 MMOL/L (136-145) Potassium Level 3.8 MMOL/L (3.5-5.1) 4.3 MMOL/L (3.5-5.1) Chloride Level 99 MMOL/L (98-107) 98 MMOL/L (98-107) Carbon Dioxide Level 28 MMOL/L (21-32) 27 MMOL/L (21-32) Anion Gap 13 mmol/L (5-15) 14 mmol/L (5-15) Blood Urea Nitrogen 61 mg/dL (7-18) H 72 mg/dL (7-18) H Creatinine 8.2 MG/DL (0.55-1.30) H 9.2 MG/DL (0.55-1.30) H Estimat Glomerular Filtration Rate 5.0 mL/min (>60) 4.5 mL/min (>60) Glucose Level 195 MG/DL (74-106) H 167 MG/DL (74-106) H Calcium Level 7.9 MG/DL (8.5-10.1) L 7.6 MG/DL (8.5-10.1) L Total Bilirubin 0.5 MG/DL (0.2-1.0) 0.4 MG/DL (0.2-1.0) Aspartate Amino Transf (AST/SGOT) 15 U/L (15-37) 13 U/L (15-37) L Alanine Aminotransferase (ALT/SGPT) 11 U/L (12-78) L 11 U/L (12-78) L Alkaline Phosphatase 92 U/L (46-116) 84 U/L (46-116) Total Protein 6.8 G/DL (6.4-8.2) 6.5 G/DL (6.4-8.2) Albumin 2.3 G/DL (3.4-5.0) L 2.2 G/DL (3.4-5.0) L Globulin 4.5 g/dL 4.3 g/dL Albumin/Globulin Ratio 0.5 (1.0-2.7) L 0.5 (1.0-2.7) L White Blood Count 8.7 K/UL (4.8-10.8) Red Blood Count 2.41 M/UL (4.20-5.40) L Hemoglobin 7.3 G/DL (12.0-16.0) L Hematocrit 22.0 % (37.0-47.0) L Mean Corpuscular Volume 91 FL (80-99) Mean Corpuscular Hemoglobin 30.2 PG (27.0-31.0) Mean Corpuscular Hemoglobin Concent 33.2 G/DL (32.0-36.0) Red Cell Distribution Width 12.9 % (11.6-14.8) Platelet Count 152 K/UL (150-450) Mean Platelet Volume 6.5 FL (6.5-10.1) Neutrophils (%) (Auto) % (45.0-75.0) Lymphocytes (%) (Auto) % (20.0-45.0) Monocytes (%) (Auto) % (1.0-10.0) Eosinophils (%) (Auto) % (0.0-3.0) Basophils (%) (Auto) % (0.0-2.0) Differential Total Cells Counted 100 Neutrophils % (Manual) 81 % (45-75) H Lymphocytes % (Manual) 7 % (20-45) L Monocytes % (Manual) 5 % (1-10) Eosinophils % (Manual) 6 % (0-3) H Basophils % (Manual) 0 % (0-2) Band Neutrophils 1 % (0-8) Platelet Estimate Adequate Platelet Morphology Normal Hypochromasia 3+ Anisocytosis 1+ Spherocytes 2+ Calcium (Send out) Pending Phosphorus Level 8.6 MG/DL (2.5-4.9) H Magnesium Level 2.6 MG/DL (1.8-2.4) H Iron Level 31 ug/dL (50-175) L Total Iron Binding Capacity 146 ug/dL (250-450) L Percent Iron Saturation 21 % (15-50) Unsaturated Iron Binding 115 ug/dL (112-346) Ferritin 788 NG/ML (8-388) H Vitamin D 25-Hydroxy Pending 25-Hydroxy Vitamin D2 Pending 25-Hydroxy Vitamin D3 Pending Parathyroid Hormone (Intact) Pending Random Vancomycin Level 15.0 ug/mL Microbiology Date/Time Source Procedure Growth Status 03/12/20 18:00 Blood Blood Culture - Preliminary NO GROWTH AFTER 24 HOURS Resulted 03/12/20 17:50 Blood Blood Culture - Preliminary NO GROWTH AFTER 24 HOURS Resulted 03/12/20 18:10 Urine,Clean Catch Urine Culture - Preliminary Strep Species, Gamma-Hemolytic Resulted 03/12/20 22:12 Rectum Received Intake and Output 03/13/20 03/14/20 19:00 07:00 Intake Total 270 ml 118 ml Output Total 4000 ml Balance -3730 ml 118 ml Intake Oral 270 ml Other 118 ml Output Hemodialysis UF 4000 ml # Voids 1 # Bowel Movements 1 Assessment/Plan Assessment/Plan Assessment #ESRD on PD; malfunctioning PD cath, acutely requiring HD access s/p placement w / associated hyperkalemia presenting at >6 #R/O COVID vs HCAP vs Pulmonary Edema; CXR cannot rule out underlying lesion #Sepsis; Ddx CAP vs PD cath infection, pending paz cultures, peritoneal fluid studies if ID deems appropriate #Uremia/Metabolic Acidosis -Resolved #HTN #DMII Plan Consultants include surgery s/p HD access, Cardio, Nephro Continue Vancomycin and Cefepime IV, Paz Cx COVID pending ,predictive markers noted Coreg and Atorvastatin, Lasix PO; adjust prn, BP to improve w/ aggressive HD Weight based insulin dosing, goal blood sugar less then 180 while inpatient, Levemir QHS Obtain and Reconcile home meds -Complete Maeve/1800 ADA Diet DVT ppx 03/14: It seems patient would prefer to be on PD moving forward. Will continue to monitor in house to see if this is viable. Appreciate Consultants. Continue AB and await cultures and COVID. Repeat CXR for am to assess improvement of effusion and pulmonary edema. Emilie Davis D.O. March 14, 2020 12:10
--- NOTE | 2020-03-14 13:17 | NUR ---
NURSE NOTES: Post void [id number].
[2020-03-14] MEDS ORDERED: Vancomycin 1.5gm/NS Premix IVPB ONE (13:30)
--- NOTE | 2020-03-14 13:54 | NUR ---
NURSE NOTES: Scheduled hemodialysis with Edie at [facility] for 03/15/20.
--- NOTE | 2020-03-14 14:13 | Consultation ---
History of Present Illness General Date patient seen: March 14, 2020 Time patient seen: 19:52 Chief Complaint: Generalized Weakness Reason for Consultation: ESRD on PD Present Illness HPI Mrs. Bernardo is a 54 YO F with ESRD on PD, IDDM II, essential hypertension, hyperlipidemia and insomnia presenting with chest discomfort and leg swelling. Patient reports that her who assists her with the PD ended up in the hospital 5 days ago and since then she has not received her routine PD. Patient complains of feeling pressure all over her body due to volume overload. Patient also complains of productive cough. Denies any fever, chills, nausea, vomiting diarrhea, dysuria. On arrival to the ED, vitals were significant for BP: 158/72 mmHg. The CMP showed Hyperkalemia: 6.7, BUN: 108 and Cr: 12.5. The UA was significant for highly elevated WBC and 3+ LE. The CXR significant for R pleural effusion and right sided infiltrate suggestive of possible pneumonia. Allergies: Coded Allergies: No Known Allergies (Unverified , 11/24/15) Medication History Scheduled Aspirin* (Aspirin*), 81 MG ORAL DAILY, (Reported) Atorvastatin Calcium* (Atorvastatin Calcium*), 40 MG ORAL BEDTIME, (Reported) Carvedilol* (Carvedilol*), 6.25 MG ORAL DAILY, (Reported) Furosemide* (Lasix*), 40 MG ORAL DAILY, (Reported) Gabapentin* (Gabapentin*), 100 MG ORAL THREE TIMES A DAY, (Reported) Insulin Glargine (Lantus), 10 UNITS SUBQ BEDTIME Nateglinide (Starlix), 120 MG ORAL TIAC Potassium Chloride (Potassium Chloride), 20 MEQ ORAL DAILY, (Reported) Scheduled PRN Zolpidem Tartrate* (Zolpidem Tartrate*), 10 MG ORAL BEDTIME PRN for Insomnia, ( Reported) Patient History Healthcare decision maker Resuscitation status Advanced Directive on File Review of Systems Constitutional: Reports: sweats, malaise, weakness Eye: Reports: no symptoms ENT: Reports: no symptoms Respiratory: Reports: shortness of breath Cardiovascular: Reports: no symptoms Gastrointestinal: Reports: no symptoms Genitourinary: Reports: no symptoms Musculoskeletal: Reports: no symptoms Skin: Reports: no symptoms Psychiatric: Reports: no symptoms Neurological: Reports: no symptoms Endocrine: Reports: no symptoms Hematologic/Lymphatic: Reports: no symptoms Physical Exam General Appearance: no apparent distress, alert Lines, tubes and drains: peripheral, shunt, dialysis access HEENT: normocephalic, atraumatic Neck: non-tender, normal alignment, supple, normal inspection Respiratory/Chest: chest wall non-tender, accessory muscle use, crackles/rales , rhonchi - bilaterally Cardiovascular/Chest: normal peripheral pulses, normal rate, regular rhythm Abdomen: normal bowel sounds, non tender, soft, no organomegaly Extremities: normal range of motion, non-tender, normal inspection, no calf tenderness, non-pitting Skin Exam: normal pigmentation, warm/dry, cyanotic Neurologic: 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 coder II-XII grossly normal, no motor/sensory deficits Last 24 Hour Vital Signs Date Time Temp Pulse Resp B/P (MAP) Pulse Ox O2 Delivery O2 Flow Rate FiO2 03/14/20 13:25 98.5 03/14/20 12:00 76 03/14/20 10:20 98.5 03/14/20 09:50 79 148/63 03/14/20 08:00 98.5 79 18 148/63 (91) 96 03/14/20 08:00 76 03/14/20 04:00 98.1 74 24 139/60 (86) 92 03/14/20 04:00 76 03/14/20 02:09 98.6 03/14/20 00:00 100.7 82 23 156/61 (92) 90 03/14/20 00:00 82 03/13/20 21:00 Nasal Cannula 2.0 03/13/20 20:00 89 03/13/20 20:00 98.8 84 18 149/62 (91) 92 03/13/20 18:37 76 151/58 03/13/20 16:00 72 03/13/20 16:00 98.1 76 18 151/58 (89) 92 Intake and Output 03/13/20 03/14/20 19:00 07:00 Intake Total 270 ml 118 ml Output Total 4000 ml Balance -3730 ml 118 ml Intake Oral 270 ml Other 118 ml Output Hemodialysis UF 4000 ml # Voids 1 # Bowel Movements 1 Laboratory Tests Test 03/13/20 19:45 03/14/20 10:10 Sodium Level 139 MMOL/L (136-145) 139 MMOL/L (136-145) Potassium Level 3.8 MMOL/L (3.5-5.1) 4.3 MMOL/L (3.5-5.1) Chloride Level 99 MMOL/L (98-107) 98 MMOL/L (98-107) Carbon Dioxide Level 28 MMOL/L (21-32) 27 MMOL/L (21-32) Anion Gap 13 mmol/L (5-15) 14 mmol/L (5-15) Blood Urea Nitrogen 61 mg/dL (7-18) H 72 mg/dL (7-18) H Creatinine 8.2 MG/DL (0.55-1.30) H 9.2 MG/DL (0.55-1.30) H Estimat Glomerular Filtration Rate 5.0 mL/min (>60) 4.5 mL/min (>60) Glucose Level 195 MG/DL (74-106) H 167 MG/DL (74-106) H Calcium Level 7.9 MG/DL (8.5-10.1) L 7.6 MG/DL (8.5-10.1) L Total Bilirubin 0.5 MG/DL (0.2-1.0) 0.4 MG/DL (0.2-1.0) Aspartate Amino Transf (AST/SGOT) 15 U/L (15-37) 13 U/L (15-37) L Alanine Aminotransferase (ALT/SGPT) 11 U/L (12-78) L 11 U/L (12-78) L Alkaline Phosphatase 92 U/L (46-116) 84 U/L (46-116) Total Protein 6.8 G/DL (6.4-8.2) 6.5 G/DL (6.4-8.2) Albumin 2.3 G/DL (3.4-5.0) L 2.2 G/DL (3.4-5.0) L Globulin 4.5 g/dL 4.3 g/dL Albumin/Globulin Ratio 0.5 (1.0-2.7) L 0.5 (1.0-2.7) L White Blood Count 8.7 K/UL (4.8-10.8) Red Blood Count 2.41 M/UL (4.20-5.40) L Hemoglobin 7.3 G/DL (12.0-16.0) L Hematocrit 22.0 % (37.0-47.0) L Mean Corpuscular Volume 91 FL (80-99) Mean Corpuscular Hemoglobin 30.2 PG (27.0-31.0) Mean Corpuscular Hemoglobin Concent 33.2 G/DL (32.0-36.0) Red Cell Distribution Width 12.9 % (11.6-14.8) Platelet Count 152 K/UL (150-450) Mean Platelet Volume 6.5 FL (6.5-10.1) Neutrophils (%) (Auto) % (45.0-75.0) Lymphocytes (%) (Auto) % (20.0-45.0) Monocytes (%) (Auto) % (1.0-10.0) Eosinophils (%) (Auto) % (0.0-3.0) Basophils (%) (Auto) % (0.0-2.0) Differential Total Cells Counted 100 Neutrophils % (Manual) 81 % (45-75) H Lymphocytes % (Manual) 7 % (20-45) L Monocytes % (Manual) 5 % (1-10) Eosinophils % (Manual) 6 % (0-3) H Basophils % (Manual) 0 % (0-2) Band Neutrophils 1 % (0-8) Platelet Estimate Adequate Platelet Morphology Normal Hypochromasia 3+ Anisocytosis 1+ Spherocytes 2+ Calcium (Send out) Pending Phosphorus Level 8.6 MG/DL (2.5-4.9) H Magnesium Level 2.6 MG/DL (1.8-2.4) H Iron Level 31 ug/dL (50-175) L Total Iron Binding Capacity 146 ug/dL (250-450) L Percent Iron Saturation 21 % (15-50) Unsaturated Iron Binding 115 ug/dL (112-346) Ferritin 788 NG/ML (8-388) H Vitamin D 25-Hydroxy Pending 25-Hydroxy Vitamin D2 Pending 25-Hydroxy Vitamin D3 Pending Parathyroid Hormone (Intact) Pending Random Vancomycin Level 15.0 ug/mL Height (Feet): 5 Height (Inches): 3.00 Weight (Pounds): 195 Medications Current Medications Medications (Trade) Dose Ordered Sig/Amarilis Route PRN Reason Start Time Stop Time Status Last Admin Dose Admin Acetaminophen/ Hydrocodone Bitart ([place] 5/325) 1 tab Q6H PRN ORAL Mild Pain (Pain Scale 1-3) 03/14/20 11:45 03/20/20 10:14 Atorvastatin Calcium (Lipitor) 40 mg BEDTIME ORAL 03/13/20 21:00 06/11/20 20:59 03/13/20 22:02 Carvedilol (Coreg) 6.25 mg BID ORAL 03/13/20 09:00 04/12/20 08:59 03/14/20 09:50 Cefepime HCl 1 gm/ Dextrose 55 ml @ 110 mls/hr Q24H IVPB 03/13/20 18:00 03/20/20 17:59 03/13/20 18:36 Clonidine HCl (Catapres Tab) 0.1 mg Q6H PRN ORAL For High Blood Pressure 03/13/20 01:00 06/11/20 00:59 03/13/20 08:27 Dextrose (Dextrose 50%) 25 ml Q30M PRN IV Hypoglycemia 03/13/20 01:00 06/11/20 00:59 Dextrose (Dextrose 50%) 50 ml Q30M PRN IV Hypoglycemia 03/13/20 01:00 06/11/20 00:59 Epoetin Gustabo (Epoetin Gustabo(ESRD on dialysis)) 4,000 unit SUN-SUN-SUN SUBQ 03/15/20 21:00 06/13/20 20:59 Furosemide (Lasix) 40 mg DAILY ORAL 03/13/20 09:00 04/12/20 08:59 03/14/20 09:50 Insulin Aspart (NovoLOG) BEFORE MEALS AND HS SUBQ 03/13/20 06:30 06/11/20 06:29 03/14/20 11:45 Insulin Detemir (Levemir) 10 units BEDTIME SUBQ 03/13/20 01:30 06/11/20 01:29 03/13/20 22:04 Pregabalin (Lyrica) 75 mg BID ORAL 03/13/20 18:00 04/27/20 17:59 03/14/20 09:50 Tramadol HCl (Ultram) 50 mg Q6H PRN ORAL For Pain (4-10) 03/14/20 11:45 03/21/20 11:44 03/14/20 12:55 Vancomycin HCl (Vanco rx to dose) 1 ea DAILY MISC 03/13/20 09:00 6/22/20 08:59 Vancomycin/Sodium Chloride 275 ml @ 137.5 mls/ hr Q24H ONCE IVPB 03/14/20 13:30 03/14/20 15:29 Zolpidem Tartrate (Ambien) 5 mg BEDTIME PRN ORAL Insomnia 03/13/20 01:15 03/20/20 01:14 Assessment/Plan Status: stable Assessment/Plan: Assessment ESRD Hyperkalemia Volume overload r/o COVID PNA IDDM HTN HLD PLAN: -Maintain Dialysis -Serial CXR -Consider right pleural thoracentesis -serial H/H, transfuse PRBC -Continue coreg -Continue lasix -Monitor on telemetry given electrolyte abnormalities -Echocardiogram pending -Outpatient stress test -Start Norvasc 10 mg for stage 2 hypertension -DASH diet Roberto Bay MD March 14, 2020 14:13
--- NOTE | 2020-03-14 14:15 | Surgery Progress Note ---
Surgery Progress Note Subjective Procedure Performed Right femoral temporary hemodialysis catheter insertion Symptoms: improved, tolerating diet, passing flatus Additional Comments Line okay had dialysis yesterday labs improved Objective Last 24 Hour Vital Signs Date Time Temp Pulse Resp B/P (MAP) Pulse Ox O2 Delivery O2 Flow Rate FiO2 03/14/20 13:25 98.5 03/14/20 12:00 76 03/14/20 10:20 98.5 03/14/20 09:50 79 148/63 03/14/20 08:00 98.5 79 18 148/63 (91) 96 03/14/20 08:00 76 03/14/20 04:00 98.1 74 24 139/60 (86) 92 03/14/20 04:00 76 03/14/20 02:09 98.6 03/14/20 00:00 100.7 82 23 156/61 (92) 90 03/14/20 00:00 82 03/13/20 21:00 Nasal Cannula 2.0 03/13/20 20:00 89 03/13/20 20:00 98.8 84 18 149/62 (91) 92 03/13/20 18:37 76 151/58 03/13/20 16:00 72 03/13/20 16:00 98.1 76 18 151/58 (89) 92 I&O Intake and Output 03/13/20 03/14/20 19:00 07:00 Intake Total 270 ml 118 ml Output Total 4000 ml Balance -3730 ml 118 ml Intake Oral 270 ml Other 118 ml Output Hemodialysis UF 4000 ml # Voids 1 # Bowel Movements 1 Dressing: dry Wound: clean Drains: other Cardiovascular: RSR Respiratory: decreased breath sounds Abdomen: soft, non-tender, present bowel sounds Extremities: no edema, no tenderness, no cyanosis Laboratory Tests Test 03/13/20 19:45 03/14/20 10:10 Sodium Level 139 MMOL/L (136-145) 139 MMOL/L (136-145) Potassium Level 3.8 MMOL/L (3.5-5.1) 4.3 MMOL/L (3.5-5.1) Chloride Level 99 MMOL/L (98-107) 98 MMOL/L (98-107) Carbon Dioxide Level 28 MMOL/L (21-32) 27 MMOL/L (21-32) Anion Gap 13 mmol/L (5-15) 14 mmol/L (5-15) Blood Urea Nitrogen 61 mg/dL (7-18) H 72 mg/dL (7-18) H Creatinine 8.2 MG/DL (0.55-1.30) H 9.2 MG/DL (0.55-1.30) H Estimat Glomerular Filtration Rate 5.0 mL/min (>60) 4.5 mL/min (>60) Glucose Level 195 MG/DL (74-106) H 167 MG/DL (74-106) H Calcium Level 7.9 MG/DL (8.5-10.1) L 7.6 MG/DL (8.5-10.1) L Total Bilirubin 0.5 MG/DL (0.2-1.0) 0.4 MG/DL (0.2-1.0) Aspartate Amino Transf (AST/SGOT) 15 U/L (15-37) 13 U/L (15-37) L Alanine Aminotransferase (ALT/SGPT) 11 U/L (12-78) L 11 U/L (12-78) L Alkaline Phosphatase 92 U/L (46-116) 84 U/L (46-116) Total Protein 6.8 G/DL (6.4-8.2) 6.5 G/DL (6.4-8.2) Albumin 2.3 G/DL (3.4-5.0) L 2.2 G/DL (3.4-5.0) L Globulin 4.5 g/dL 4.3 g/dL Albumin/Globulin Ratio 0.5 (1.0-2.7) L 0.5 (1.0-2.7) L White Blood Count 8.7 K/UL (4.8-10.8) Red Blood Count 2.41 M/UL (4.20-5.40) L Hemoglobin 7.3 G/DL (12.0-16.0) L Hematocrit 22.0 % (37.0-47.0) L Mean Corpuscular Volume 91 FL (80-99) Mean Corpuscular Hemoglobin 30.2 PG (27.0-31.0) Mean Corpuscular Hemoglobin Concent 33.2 G/DL (32.0-36.0) Red Cell Distribution Width 12.9 % (11.6-14.8) Platelet Count 152 K/UL (150-450) Mean Platelet Volume 6.5 FL (6.5-10.1) Neutrophils (%) (Auto) % (45.0-75.0) Lymphocytes (%) (Auto) % (20.0-45.0) Monocytes (%) (Auto) % (1.0-10.0) Eosinophils (%) (Auto) % (0.0-3.0) Basophils (%) (Auto) % (0.0-2.0) Differential Total Cells Counted 100 Neutrophils % (Manual) 81 % (45-75) H Lymphocytes % (Manual) 7 % (20-45) L Monocytes % (Manual) 5 % (1-10) Eosinophils % (Manual) 6 % (0-3) H Basophils % (Manual) 0 % (0-2) Band Neutrophils 1 % (0-8) Platelet Estimate Adequate Platelet Morphology Normal Hypochromasia 3+ Anisocytosis 1+ Spherocytes 2+ Calcium (Send out) Pending Phosphorus Level 8.6 MG/DL (2.5-4.9) H Magnesium Level 2.6 MG/DL (1.8-2.4) H Iron Level 31 ug/dL (50-175) L Total Iron Binding Capacity 146 ug/dL (250-450) L Percent Iron Saturation 21 % (15-50) Unsaturated Iron Binding 115 ug/dL (112-346) Ferritin 788 NG/ML (8-388) H Vitamin D 25-Hydroxy Pending 25-Hydroxy Vitamin D2 Pending 25-Hydroxy Vitamin D3 Pending Parathyroid Hormone (Intact) Pending Random Vancomycin Level 15.0 ug/mL Plan Problems: (1) Anemia (2) Pleural effusion (3) UTI (urinary tract infection) (4) Chronic renal failure (5) Pneumonia (6) Dehydration (7) Hyperkalemia Assessment & Plan: Leukocytosis hyperkalemia with medical management since seen last night to the course of today patient's potassium is only gone from 6.7 -6.5 and will likely worsen her given condition. She is symptomatic ill- appearing and will require hemodialysis. Does not have access hemodialysis access indicated recommended. Risk benefits alternative discussed patient in detail line placed at bedside. Coags noted labs noted patient chart reviewed in detail We will monitor overnight and place right femoral dialysis line. Please see procedure note. Late entry as patient seen prior HD as per nephrology Okay for diet from surgical standpoint We will follow with recommendations Thank you for let me participate in patient's care cont HD will hopefully be able to resume PD upon d/c (8) Type 2 diabetes mellitus, uncontrolled (9) Elevated brain natriuretic peptide (BNP) level (10) Azotemia (11) Bronchitis (12) Vomiting (13) Intractable nausea and vomiting (14) Asthma (15) Chest pain, rule out acute myocardial infarction (16) Acute dyspnea (17) Functional quadriplegia Landon Elias March 14, 2020 14:15
[2020-03-14 16:00] VITALS: BP 155/69
--- NOTE | 2020-03-14 16:19 | Infectious Diseases Prog Note ---
Assessment/Plan Assessment/Plan Full consult dictated: A) 1) strep species uti 2) cap 3) sepsis, leukocytosis, fevers 4) possible covid-19 virus infection P) 1) vancomycin and cefepime 2) f/u on cultures, labs and chest x-ray 3) f/u on covid-19 pcr testing 4) thank you Subjective Allergies: Coded Allergies: No Known Allergies (Unverified , 11/24/15) Objective Vital Signs Last 24 Hour Vital Signs Date Time Temp Pulse Resp B/P (MAP) Pulse Ox O2 Delivery O2 Flow Rate FiO2 03/14/20 13:25 98.5 03/14/20 12:00 76 03/14/20 12:00 98.6 78 18 142/63 (89) 91 03/14/20 10:20 98.5 03/14/20 09:50 79 148/63 03/14/20 08:00 98.5 79 18 148/63 (91) 96 03/14/20 08:00 76 03/14/20 04:00 98.1 74 24 139/60 (86) 92 03/14/20 04:00 76 03/14/20 02:09 98.6 03/14/20 00:00 100.7 82 23 156/61 (92) 90 03/14/20 00:00 82 03/13/20 21:00 Nasal Cannula 2.0 03/13/20 20:00 89 03/13/20 20:00 98.8 84 18 149/62 (91) 92 03/13/20 18:37 76 151/58 Height (Feet): 5 Height (Inches): 3.00 Weight (Pounds): 195 Microbiology Date/Time Source Procedure Growth Status 03/12/20 18:00 Blood Blood Culture - Preliminary NO GROWTH AFTER 24 HOURS Resulted 03/12/20 17:50 Blood Blood Culture - Preliminary NO GROWTH AFTER 24 HOURS Resulted 03/12/20 18:10 Urine,Clean Catch Urine Culture - Preliminary Strep Species, Gamma-Hemolytic Resulted 03/12/20 22:12 Rectum Received Laboratory Tests Test 03/13/20 19:45 03/14/20 10:10 Sodium Level 139 MMOL/L (136-145) 139 MMOL/L (136-145) Potassium Level 3.8 MMOL/L (3.5-5.1) 4.3 MMOL/L (3.5-5.1) Chloride Level 99 MMOL/L (98-107) 98 MMOL/L (98-107) Carbon Dioxide Level 28 MMOL/L (21-32) 27 MMOL/L (21-32) Anion Gap 13 mmol/L (5-15) 14 mmol/L (5-15) Blood Urea Nitrogen 61 mg/dL (7-18) H 72 mg/dL (7-18) H Creatinine 8.2 MG/DL (0.55-1.30) H 9.2 MG/DL (0.55-1.30) H Estimat Glomerular Filtration Rate 5.0 mL/min (>60) 4.5 mL/min (>60) Glucose Level 195 MG/DL (74-106) H 167 MG/DL (74-106) H Calcium Level 7.9 MG/DL (8.5-10.1) L 7.6 MG/DL (8.5-10.1) L Total Bilirubin 0.5 MG/DL (0.2-1.0) 0.4 MG/DL (0.2-1.0) Aspartate Amino Transf (AST/SGOT) 15 U/L (15-37) 13 U/L (15-37) L Alanine Aminotransferase (ALT/SGPT) 11 U/L (12-78) L 11 U/L (12-78) L Alkaline Phosphatase 92 U/L (46-116) 84 U/L (46-116) Total Protein 6.8 G/DL (6.4-8.2) 6.5 G/DL (6.4-8.2) Albumin 2.3 G/DL (3.4-5.0) L 2.2 G/DL (3.4-5.0) L Globulin 4.5 g/dL 4.3 g/dL Albumin/Globulin Ratio 0.5 (1.0-2.7) L 0.5 (1.0-2.7) L White Blood Count 8.7 K/UL (4.8-10.8) Red Blood Count 2.41 M/UL (4.20-5.40) L Hemoglobin 7.3 G/DL (12.0-16.0) L Hematocrit 22.0 % (37.0-47.0) L Mean Corpuscular Volume 91 FL (80-99) Mean Corpuscular Hemoglobin 30.2 PG (27.0-31.0) Mean Corpuscular Hemoglobin Concent 33.2 G/DL (32.0-36.0) Red Cell Distribution Width 12.9 % (11.6-14.8) Platelet Count 152 K/UL (150-450) Mean Platelet Volume 6.5 FL (6.5-10.1) Neutrophils (%) (Auto) % (45.0-75.0) Lymphocytes (%) (Auto) % (20.0-45.0) Monocytes (%) (Auto) % (1.0-10.0) Eosinophils (%) (Auto) % (0.0-3.0) Basophils (%) (Auto) % (0.0-2.0) Differential Total Cells Counted 100 Neutrophils % (Manual) 81 % (45-75) H Lymphocytes % (Manual) 7 % (20-45) L Monocytes % (Manual) 5 % (1-10) Eosinophils % (Manual) 6 % (0-3) H Basophils % (Manual) 0 % (0-2) Band Neutrophils 1 % (0-8) Platelet Estimate Adequate Platelet Morphology Normal Hypochromasia 3+ Anisocytosis 1+ Spherocytes 2+ Calcium (Send out) Pending Phosphorus Level 8.6 MG/DL (2.5-4.9) H Magnesium Level 2.6 MG/DL (1.8-2.4) H Iron Level 31 ug/dL (50-175) L Total Iron Binding Capacity 146 ug/dL (250-450) L Percent Iron Saturation 21 % (15-50) Unsaturated Iron Binding 115 ug/dL (112-346) Ferritin 788 NG/ML (8-388) H Vitamin D 25-Hydroxy Pending 25-Hydroxy Vitamin D2 Pending 25-Hydroxy Vitamin D3 Pending Parathyroid Hormone (Intact) Pending Random Vancomycin Level 15.0 ug/mL Current Medications Medications (Trade) Dose Ordered Sig/Amarilis Route PRN Reason Start Time Stop Time Status Last Admin Dose Admin Acetaminophen/ Hydrocodone Bitart ([place] 5/325) 1 tab Q6H PRN ORAL Mild Pain (Pain Scale 1-3) 03/14/20 11:45 03/20/20 10:14 03/14/20 15:11 Atorvastatin Calcium (Lipitor) 40 mg BEDTIME ORAL 03/13/20 21:00 06/11/20 20:59 03/13/20 22:02 Carvedilol (Coreg) 6.25 mg BID ORAL 03/13/20 09:00 04/12/20 08:59 03/14/20 09:50 Cefepime HCl 1 gm/ Dextrose 55 ml @ 110 mls/hr Q24H IVPB 03/13/20 18:00 03/20/20 17:59 03/13/20 18:36 Clonidine HCl (Catapres Tab) 0.1 mg Q6H PRN ORAL For High Blood Pressure 03/13/20 01:00 06/11/20 00:59 03/13/20 08:27 Dextrose (Dextrose 50%) 25 ml Q30M PRN IV Hypoglycemia 03/13/20 01:00 06/11/20 00:59 Dextrose (Dextrose 50%) 50 ml Q30M PRN IV Hypoglycemia 03/13/20 01:00 06/11/20 00:59 Epoetin Gustabo (Epoetin Gustabo(ESRD on dialysis)) 4,000 unit SUN-SUN-SUN SUBQ 03/15/20 21:00 06/13/20 20:59 Furosemide (Lasix) 40 mg DAILY ORAL 03/13/20 09:00 04/12/20 08:59 03/14/20 09:50 Insulin Aspart (NovoLOG) BEFORE MEALS AND HS SUBQ 03/13/20 06:30 06/11/20 06:29 03/14/20 11:45 Insulin Detemir (Levemir) 10 units BEDTIME SUBQ 03/13/20 01:30 06/11/20 01:29 03/13/20 22:04 Pregabalin (Lyrica) 75 mg BID ORAL 03/13/20 18:00 04/27/20 17:59 03/14/20 09:50 Tramadol HCl (Ultram) 50 mg Q6H PRN ORAL For Pain (4-10) 03/14/20 11:45 03/21/20 11:44 03/14/20 12:55 Vancomycin HCl (Vanco rx to dose) 1 ea DAILY MISC 03/13/20 09:00 04/12/20 08:59 Zolpidem Tartrate (Ambien) 5 mg BEDTIME PRN ORAL Insomnia 03/13/20 01:15 03/20/20 01:14 Kane Shelton MD March 14, 2020 16:19
[2020-03-14] MEDS: Cefepime HCl 1 GM in D5W 55 ML IVPB SCH (18:47)
--- NOTE | 2020-03-14 19:40 | NUR ---
HAND-OFF: Report given to Fátima Farrar RN. Patient is awake and alert, in semi-Hodges's position, resting comfortably, bed in lowest position, call light within reach, no c/o pain, no SOB, IV patent in right hand 22 gauge, side rails up X3, in no apparent distress.
--- NOTE | 2020-03-14 19:44 | NUR ---
NURSE NOTES: Received report from TAMARA Horne. Patient is awake lying semi-hwang's; resting comfortably. No signs of acute distress noted; denies pain at this time. AOx4; able to make needs known. Checked IV site; patent and flushed. No erythema, bleeding, or infiltration noted. Right femoral permcath in place for dialysis access. Bed at lowest position, brakes on, siderails up x3. Call light within reach. Will continue to monitor.
[2020-03-14 20:00] VITALS: BP 153/68
[2020-03-14] MEDS: Atorvastatin 20mg tab ORAL SCH (21:06)
[2020-03-14] MEDS: Levemir Flexpen SUBQ SCH (21:08)
[2020-03-15] VITALS: BP 146/72
--- NOTE | 2020-03-15 01:15 | Consultation ---
DATE OF CONSULTATION: 03/14/2020 INFECTIOUS DISEASE CONSULTATION CONSULTING PHYSICIAN: Kane Shelton MD. ATTENDING PHYSICIAN: Poli St MD. REFERRING PHYSICIAN: Poli St MD. REASON FOR CONSULTATION: Sepsis, fevers, leukocytosis, Streptococcus UTI, pneumonia, rule out COVID-19 virus infection. CHIEF COMPLAINT: Patient's chief complaint in to the hospital is respiratory distress. HISTORY OF PRESENT ILLNESS: This is a 54-year-old female who presents to [facility] with respiratory distress. Patient had it for at least several days, but looks like she missed dialysis. Patient needed dialysis. She had leg swelling. I guess she gets peritoneal dialysis at home, but has missed her routine peritoneal dialysis. Because of fluid overload, she is short of breath and presented to [facility]. It was noted that she had multiple infections including pneumonia and UTI. Patient was febrile with elevated white count and possibly septic. Patient is being ruled out for COVID-19 virus infection. Infectious Disease consultation was requested. Patient was empirically started on Vanco and cefepime. MAR was noted. Orders were noted. Notes and records reviewed. REVIEW OF SYSTEMS: CONSTITUTIONAL: Patient is alert, responsive, and oriented. She came in with fevers. She currently has no fever or chills. No night sweats or weight loss. HEAD AND NECK: No head pain, neck pain, neck stiffness, thrush, or dysphagia. CARDIAC: No chest pain or palpitations. GASTROINTESTINAL: No nausea, vomiting, abdominal pain, or diarrhea. GENITOURINARY: No CVA tenderness. She has no El. PULMONARY: No congestion or shortness of breath. She did have shortness of breath initially, but currently no congestion or shortness of breath. SKIN: No rash. No itching or pruritus. EXTREMITIES: No pain. She has leg swelling. NEUROLOGIC: No seizures. Generalized fatigue. No focal weakness. PAST MEDICAL HISTORY: Patient has a past medical history of end-stage renal disease requiring peritoneal dialysis. She is getting hemodialysis. I think they put a hemodialysis catheter in her. Other past medical history includes diabetes type 2, essential hypertension, hyperlipidemia, insomnia, swelling or edema. ALLERGIES: No known drug allergies. No antibiotic allergies. SOCIAL HISTORY: Negative for smoking, alcohol, drug abuse. FAMILY HISTORY: Noncontributory. Negative for tuberculosis or cancer. MEDICATIONS: Upon reviewing the MAR, she is on following medications. She is on Epogen, tramadol. She is on hydrocodone, atorvastatin, cefepime Vanco, Lyrica, carvedilol, furosemide, insulin, zolpidem, clonidine. Outside medications noted and reconciliated. PHYSICAL EXAMINATION: VITAL SIGNS: Temperature 98.6, pulse rate 78, respiratory rate 18, blood pressure 142/63, and saturating 91% on room. T-max 100.7. Pulse rate has been as high as 94. GENERAL: Alert, responsive. No acute distress. Oriented x3. HEAD AND NECK: Oral exam, no thrush. Eye exam, no icterus. Normocephalic. Neck is supple. No JVD. HEART: Regular. No gallop or murmur. No friction rub. ABDOMEN: Soft. Positive bowel sounds. Nontender. LUNGS: Few bilateral rhonchi with right lower lobe rales and decreased breath sounds also. SKIN: No rash or dermatitis. MUSCULOSKELETAL: No septic arthritis. Lower extremities, she has edema. No cellulitis. PERIPHERAL VASCULAR: No cyanosis or gangrene. GENITOURINARY: No El. No CVA tenderness. LINE SITES: Without phlebitis. NEUROLOGIC: Alert, responsive, in no acute distress. Oriented. LABORATORY DATA: Creatinine is 9.2. LFTs are noted. White count 8.7, hemoglobin 7.3. White count yesterday was 13.2. UA too many to count white blood cells and 3+ leukocyte esterase. Cultures, blood cultures are negative to date. Urine culture greater than 100,000 strep species. Identification is pending. Blood cultures are negative. COVID-19 testing by PCR is pending. Chest x-ray shows a right lower lobe infiltrate, pneumonia with effusion, moderate effusion on the right. ASSESSMENT AND PLAN: 1. Patient has multiple infections including a Streptococcus species UTI and complicated UTI. Patient also has what looks like community-acquired pneumonia. However, patient also is at risk for MRSA and gram-negative pneumonia because of dialysis status. However, I do not believe she has been in the hospital recently. Patient also has possible COVID-19 virus infection. Patient has fevers, elevated white count, sepsis. Continue Vanco and cefepime for MRSA gram-negative coverage. Continue Vanco and cefepime for Streptococcus UTI, pneumonia, sepsis, leukocytosis, and fevers. Check cultures, laboratories. Follow up chest x-ray. Await COVID-19 virus PCR testing. Continue isolation for COVID-19 virus. Continue Vanco and cefepime for pending workup. 2. Patient has end-stage renal disease. Currently on hemodialysis. She missed her peritoneal dialysis, but has a history of end-stage renal disease on peritoneal dialysis. 3. Diabetes. 4. Hypertension. 5. Blood sugar and blood pressure treatment per primary care team. 6. Hyperlipidemia or dyslipidemia. 7. Insomnia. 8. No known drug allergies. 9. Social history negative. 10. Family history noncontributory. 11. MAR was noted. 12. Case discussed with RN. 13. Continue treatment per primary consultants. 14. Orders were noted and entered. 15. Case communicated with primary team and consultants. Kane Shleton M.D. DR: FRAN JOB#: [id number] CC:
[2020-03-15] MEDS: NovoLOG Insulin Flexpen SUBQ SCH ×4 (06:30→21:58)
--- NOTE | 2020-03-15 07:00 | NUR ---
HAND-OFF: Report given to TAMARA Horne. Patient is asleep lying semi-hwang's receiving dialysis. On 2L nasal cannula.
--- NOTE | 2020-03-15 07:02 | NUR ---
NURSE NOTES: Received report from Fátima Farrar RN. Patient is awake and alert, in semi-Hodges's position, resting comfortably, bed in lowest position, call light within reach, no c/o pain, no SOB, IV patent in right hand 22 gauge, side rails up X3, in no apparent distress.
[2020-03-15 07:35] LABS: HEMATOCRIT 19.6 % (37.0-47.0); MEAN CORPUSCULAR VOLUME 91 FL (80-99); PLATELET COUNT 142 K/UL (150-450); RED BLOOD COUNT 2.16 M/UL (4.20-5.40); RED CELL DISTRIBUTION WIDTH 13.1 % (11.6-14.8)
[2020-03-15 07:53] LABS: HEMOGLOBIN 6.6 G/DL (12.0-16.0)
[2020-03-15] MEDS ORDERED: Cathflo Alteplase 2mg Inj INJ ONE (08:00)
[2020-03-15 08:09] LABS: ALANINE AMINOTRANSFERASE 12 U/L (12-78); ALBUMIN 2.2 G/DL (3.4-5.0); ALBUMIN/GLOBULIN RATIO 0.5 (1.0-2.7); ALKALINE PHOSPHATASE 79 U/L (46-116); ANION GAP 12 mmol/L (5-15); ASPARTATE AMINO TRANSFERASE 14 U/L (15-37); BILIRUBIN,TOTAL 0.3 MG/DL (0.2-1.0); BLOOD UREA NITROGEN 47 mg/dL (7-18); CALCIUM 7.9 MG/DL (8.5-10.1); CARBON DIOXIDE 29 MMOL/L (21-32); CHLORIDE 98 MMOL/L (98-107); CREATININE 6.2 MG/DL (0.55-1.30); PHOSPHORUS 6.1 MG/DL (2.5-4.9); SODIUM 139 MMOL/L (136-145)
--- NOTE | 2020-03-15 08:14 | NUR ---
NURSE NOTES: Reported hemoglobin=6.[address], received order to transfuse one unit of blood.
--- NOTE | 2020-03-15 08:24 | NUR ---
NURSE NOTES: Potassium=3.[address].
[2020-03-15] MEDS: Furosemide 40mg tab ORAL SCH (09:00)
--- NOTE | 2020-03-15 09:08 | Diagnostic Imaging Report ---
EXAM: XR Chest, 1 View CLINICAL HISTORY: INFECT TECHNIQUE: Frontal view of the chest. COMPARISON: Chest x-ray 03/12/20 FINDINGS: Lungs: Slightly improved right upper lung and worsening right lower lung opacities. Mild interstitial thickening. Pleural space: Similar moderate right pleural effusion. No pneumothorax. Heart: Cardiomegaly. Mediastinum: Unremarkable. Bones/joints: Unremarkable. Tubes, lines and devices: Cardiac pacemaker. IMPRESSION: 1. Slightly improved right upper lung and worsening right lower lung opacities. Mild interstitial thickening. 2. Similar moderate right pleural effusion.
--- NOTE | 2020-03-15 09:39 | Nephrology Progress Note ---
Assessment/Plan Plan #ESRD in PD- missed PD due to not being available to help #hyperkalemia #Anemia of CKD #volume overload #possible pneumonia #IDDM #HTN #HLD - assess need for HD daily-HD today - transfuse one unit of prbc - patient prefers to get back on PD when she goes home- currently in the hospital and not able to help with PD at home - EPO 4k TIW - antibiotics per ID - pulm eval - BG control - ISS - continue coreg - continue lasix - continue lantus - check iron panel, ferritin-> pending - check PTH, vit D-> pending - monitor BMP, mag, phos daily time spent 70 min > 50% on care coordination and counseling Subjective ROS Limited/Unobtainable: No Constitutional: Denies: no symptoms, chills, diaphoresis, fever, malaise, weakness, other HEENT: Denies: no symptoms, eye pain, blurred vision, tearing, double vision, ear pain, ear discharge, nose pain, nose congestion, throat pain, throat swelling, mouth pain, mouth swelling, other Genitourinary: Denies: no symptoms, burning, discharge, frequency, flank pain, hematuria, incontinence, pain, urgency, other Neurologic/Psychiatric: Denies: no symptoms, anxiety, depressed, emotional problems, headache, numbness, paresthesia, pre-existing deficit, seizure, tingling, tremors, weakness, other Subjective underwent HD this morning hemoglbin low will transfuse one unit of prbc Objective Objective Last 24 Hour Vital Signs Date Time Temp Pulse Resp B/P (MAP) Pulse Ox O2 Delivery O2 Flow Rate FiO2 03/15/20 04:00 71 03/15/20 00:00 72 03/15/20 00:00 98.8 68 17 146/72 (96) 92 03/14/20 21:00 Nasal Cannula 2.0 03/14/20 20:00 99.1 75 17 153/68 (96) 91 03/14/20 20:00 79 03/14/20 18:47 98 155/69 03/14/20 16:00 74 03/14/20 16:00 98.3 98 18 155/69 (97) 93 03/14/20 15:41 98.5 03/14/20 13:25 98.5 03/14/20 12:00 76 03/14/20 12:00 98.6 78 18 142/63 (89) 91 03/14/20 10:20 98.5 03/14/20 09:50 79 148/63 Intake and Output 03/14/20 03/15/20 19:00 07:00 Intake Total 390 ml 840 ml Balance 390 ml 840 ml Intake Oral 390 ml 510 ml IV Total 330 ml # Voids 1 Laboratory Tests 03/14/20 10:10: White Blood Count 8.7, Red Blood Count 2.41L, Hemoglobin 7.3L, Hematocrit 22.0L , Mean Corpuscular Volume 91, Mean Corpuscular Hemoglobin 30.2, Mean Corpuscular Hemoglobin Concent 33.2, Red Cell Distribution Width 12.9, Platelet Count 152, Mean Platelet Volume 6.5, Neutrophils (%) (Auto) , Lymphocytes (%) ( Auto) , Monocytes (%) (Auto) , Eosinophils (%) (Auto) , Basophils (%) (Auto) , Differential Total Cells Counted 100, Neutrophils % (Manual) 81H, Lymphocytes % (Manual) 7L, Monocytes % (Manual) 5, Eosinophils % (Manual) 6H, Basophils % ( Manual) 0, Band Neutrophils 1, Platelet Estimate Adequate, Platelet Morphology Normal, Hypochromasia 3+, Anisocytosis 1+, Spherocytes 2+, Sodium Level 139, Potassium Level 4.3, Chloride Level 98, Carbon Dioxide Level 27, Anion Gap 14, Blood Urea Nitrogen 72H, Creatinine 9.2H, Estimat Glomerular Filtration Rate 4.5 , Glucose Level 167H, Calcium Level 7.6L, Calcium (Send out) 7.7L, Phosphorus Level 8.6H, Magnesium Level 2.6H, Iron Level 31L, Total Iron Binding Capacity 146L, Percent Iron Saturation 21, Unsaturated Iron Binding 115, Ferritin 788H, Total Bilirubin 0.4, Aspartate Amino Transf (AST/SGOT) 13L, Alanine Aminotransferase (ALT/SGPT) 11L, Alkaline Phosphatase 84, Total Protein 6.5, Albumin 2.2L, Globulin 4.3, Albumin/Globulin Ratio 0.5L, Vitamin D 25-Hydroxy [ Pending], 25-Hydroxy Vitamin D2 [Pending], 25-Hydroxy Vitamin D3 [Pending], PTH (Intact) Whole Molecule Comment, Parathyroid Hormone (Intact) 94H, Random Vancomycin Level 15.0 03/15/20 05:56: White Blood Count 9.0, Red Blood Count 2.16L, Hemoglobin 6.6*L, Hematocrit 19.6L , Mean Corpuscular Volume 91, Mean Corpuscular Hemoglobin 30.4, Mean Corpuscular Hemoglobin Concent 33.6, Red Cell Distribution Width 13.1, Platelet Count 142L, Mean Platelet Volume 6.6, Neutrophils (%) (Auto) , Lymphocytes (%) ( Auto) , Monocytes (%) (Auto) , Eosinophils (%) (Auto) , Basophils (%) (Auto) , Neutrophils % (Manual) [Pending], Lymphocytes % (Manual) [Pending], Platelet Estimate [Pending], Platelet Morphology [Pending], Sodium Level 139, Potassium Level 3.0L, Chloride Level 98, Carbon Dioxide Level 29, Anion Gap 12, Blood Urea Nitrogen 47H, Creatinine 6.2H, Estimat Glomerular Filtration Rate 7.0, Glucose Level 140H, Calcium Level 7.9L, Phosphorus Level 6.1H, Magnesium Level 2.3, Total Bilirubin 0.3, Aspartate Amino Transf (AST/SGOT) 14L, Alanine Aminotransferase (ALT/SGPT) 12, Alkaline Phosphatase 79, Total Protein 6.3L, Albumin 2.2L, Globulin 4.1, Albumin/Globulin Ratio 0.5L Height (Feet): 5 Height (Inches): 3.00 Weight (Pounds): 195 Objective General Appearance: WD/WN, no apparent distress Lines, tubes and drains: peripheral HEENT: normocephalic Neck: non-tender Respiratory/Chest: rhonchi - bilaterally Cardiovascular/Chest: normal peripheral pulses Abdomen: normal bowel sounds, non tender, soft, hypoactive bowel sounds, other - PD catheter clean dry intact Extremities: normal range of motion Neurologic: alert, oriented x [address] M.D. March 15, 2020 09:39
[2020-03-15] MEDS: Carvedilol 6.25mg Tab ORAL SCH (09:40)
[2020-03-15] MEDS: Lyrica 75mg cap ORAL SCH ×2 (09:44→17:15)
--- NOTE | 2020-03-15 10:18 | Pulmonology Progress Note ---
Subjective ROS Limited/Unobtainable: No Interval Events: None new Constitutional: Reports: no symptoms HEENT: Repors: no symptoms Respiratory: Reports: no symptoms Cardiovascular: Reports: no symptoms Gastrointestinal/Abdominal: Reports: no symptoms Genitourinary: Reports: no symptoms Allergies: Coded Allergies: No Known Allergies (Unverified , 11/24/15) Objective Last 24 Hour Vital Signs Date Time Temp Pulse Resp B/P (MAP) Pulse Ox O2 Delivery O2 Flow Rate FiO2 03/15/20 09:40 71 146/72 03/15/20 04:00 71 03/15/20 00:00 72 03/15/20 00:00 98.8 68 17 146/72 (96) 92 03/14/20 21:00 Nasal Cannula 2.0 03/14/20 20:00 99.1 75 17 153/68 (96) 91 03/14/20 20:00 79 03/14/20 18:47 98 155/69 03/14/20 16:00 74 03/14/20 16:00 98.3 98 18 155/69 (97) 93 03/14/20 15:41 98.5 03/14/20 13:25 98.5 03/14/20 12:00 76 03/14/20 12:00 98.6 78 18 142/63 (89) 91 03/14/20 10:20 98.5 Intake and Output 03/14/20 03/15/20 19:00 07:00 Intake Total 390 ml 840 ml Balance 390 ml 840 ml Intake Oral 390 ml 510 ml IV Total 330 ml # Voids 1 General Appearance: no acute distress HEENT: normocephalic Respiratory: chest wall non-tender, lungs clear Cardiovascular: normal peripheral pulses Abdomen: normal bowel sounds Microbiology Date/Time Source Procedure Growth Status 03/12/20 18:00 Blood Blood Culture - Preliminary NO GROWTH AFTER 48 HOURS Resulted 03/12/20 17:50 Blood Blood Culture - Preliminary NO GROWTH AFTER 48 HOURS Resulted 03/12/20 22:12 Nasal Nares MRSA Culture - Final NO METHICILLIN RESISTANT STAPH AUREUS... Complete 03/12/20 18:10 Nasopharynx Coronavirus COVID-19 PCR (HIGINIO) - Final Complete 03/12/20 18:10 Urine,Clean Catch Urine Culture - Final Enterococcus Faecium Complete 03/12/20 22:12 Rectum - Final NO CARBAPENEM-RESISTANT ENTEROBACTERI... Complete 03/12/20 22:12 Rectum VRE Culture - Final NO VANCOMYCIN RESISTANT ENTEROCOCCUS ... Complete Laboratory Tests 03/15/20 05:56: White Blood Count 9.0, Red Blood Count 2.16L, Hemoglobin 6.6*L, Hematocrit 19.6L , Mean Corpuscular Volume 91, Mean Corpuscular Hemoglobin 30.4, Mean Corpuscular Hemoglobin Concent 33.6, Red Cell Distribution Width 13.1, Platelet Count 142L, Mean Platelet Volume 6.6, Neutrophils (%) (Auto) , Lymphocytes (%) ( Auto) , Monocytes (%) (Auto) , Eosinophils (%) (Auto) , Basophils (%) (Auto) , Differential Total Cells Counted 100, Neutrophils % (Manual) 80H, Lymphocytes % (Manual) 15L, Monocytes % (Manual) 3, Eosinophils % (Manual) 2, Basophils % ( Manual) 0, Band Neutrophils 0, Platelet Estimate DecreasedL, Platelet Morphology Normal, Polychromasia 1+, Hypochromasia 1+, Sodium Level 139, Potassium Level 3.0L, Chloride Level 98, Carbon Dioxide Level 29, Anion Gap 12, Blood Urea Nitrogen 47H, Creatinine 6.2H, Estimat Glomerular Filtration Rate 7.0 , Glucose Level 140H, Calcium Level 7.9L, Phosphorus Level 6.1H, Magnesium Level 2.3, Total Bilirubin 0.3, Aspartate Amino Transf (AST/SGOT) 14L, Alanine Aminotransferase (ALT/SGPT) 12, Alkaline Phosphatase 79, Total Protein 6.3L, Albumin 2.2L, Globulin 4.1, Albumin/Globulin Ratio 0.5L Current Medications Medications (Trade) Dose Ordered Sig/Amarilis Route PRN Reason Start Time Stop Time Status Last Admin Dose Admin Acetaminophen/ Hydrocodone Bitart (Lahaina 5/325) 1 tab Q6H PRN ORAL Mild Pain (Pain Scale 1-3) 03/14/20 11:45 03/20/20 10:14 03/14/20 15:11 Atorvastatin Calcium (Lipitor) 40 mg BEDTIME ORAL 03/13/20 21:00 06/11/20 20:59 03/14/20 21:06 Calcium Acetate (Phoslo) 667 mg TIAC ORAL 03/15/20 11:30 06/13/20 11:29 Carvedilol (Coreg) 6.25 mg BID ORAL 03/13/20 09:00 04/12/20 08:59 03/15/20 09:40 Cefepime HCl 1 gm/ Dextrose 55 ml @ 110 mls/hr Q24H IVPB 03/13/20 18:00 03/20/20 17:59 03/14/20 18:47 Clonidine HCl (Catapres Tab) 0.1 mg Q6H PRN ORAL For High Blood Pressure 03/13/20 01:00 06/11/20 00:59 03/13/20 08:27 Dextrose (Dextrose 50%) 25 ml Q30M PRN IV Hypoglycemia 03/13/20 01:00 06/11/20 00:59 Dextrose (Dextrose 50%) 50 ml Q30M PRN IV Hypoglycemia 03/13/20 01:00 06/11/20 00:59 Epoetin Gustabo (Epoetin Gustabo(ESRD on dialysis)) 4,000 unit SUN-SUN-SUN SUBQ 03/15/20 21:00 06/13/20 20:59 Furosemide (Lasix) 40 mg DAILY ORAL 03/13/20 09:00 04/12/20 08:59 03/15/20 09:00 Insulin Aspart (NovoLOG) BEFORE MEALS AND HS SUBQ 03/13/20 06:30 06/11/20 06:29 03/14/20 21:09 Insulin Detemir (Levemir) 10 units BEDTIME SUBQ 03/13/20 01:30 06/11/20 01:29 03/14/20 21:08 Pregabalin (Lyrica) 75 mg BID ORAL 03/13/20 18:00 04/27/20 17:59 03/15/20 09:44 Tramadol HCl (Ultram) 50 mg Q6H PRN ORAL For Pain (4-10) 03/14/20 11:45 03/21/20 11:44 03/14/20 12:55 Vancomycin HCl (Vanco rx to dose) 1 ea DAILY MISC 03/13/20 09:00 04/12/20 08:59 Zolpidem Tartrate (Ambien) 5 mg BEDTIME PRN ORAL Insomnia 03/13/20 01:15 03/20/20 01:14 Assessment/Plan Assessment/Plan IMPRESSION: 1. Large right effusion. 2. Right lung pneumonia. 3. Hyperkalemia. 4. Chronic renal failure on PD. DISCUSSION: Dialysis per renal. Continue broad-spectrum antibiotics, oxygen. Pulmonary hygiene. I will follow carefully. Saturating 92-96% on 2L/min O2 Eh Huynh Omar Syed MD March 15, 2020 10:18
--- NOTE | 2020-03-15 11:07 | Surgery Progress Note ---
Surgery Progress Note Subjective Procedure Performed Right femoral temporary hemodialysis catheter insertion Symptoms: improved, tolerating diet, passing flatus Additional Comments feels better anemia renal function noted HD plan soon Objective Last 24 Hour Vital Signs Date Time Temp Pulse Resp B/P (MAP) Pulse Ox O2 Delivery O2 Flow Rate FiO2 03/15/20 10:14 98.8 03/15/20 09:40 71 146/72 03/15/20 08:00 83 03/15/20 04:00 71 03/15/20 00:00 72 03/15/20 00:00 98.8 68 17 146/72 (96) 92 03/14/20 21:00 Nasal Cannula 2.0 03/14/20 20:00 99.1 75 17 153/68 (96) 91 03/14/20 20:00 79 03/14/20 18:47 98 155/69 03/14/20 16:00 74 03/14/20 16:00 98.3 98 18 155/69 (97) 93 03/14/20 15:41 98.5 03/14/20 13:25 98.5 03/14/20 12:00 76 03/14/20 12:00 98.6 78 18 142/63 (89) 91 I&O Intake and Output 03/14/20 03/15/20 19:00 07:00 Intake Total 390 ml 840 ml Balance 390 ml 840 ml Intake Oral 390 ml 510 ml IV Total 330 ml # Voids 1 Dressing: other Wound: other Drains: other Cardiovascular: RSR Respiratory: decreased breath sounds Abdomen: soft, non-tender, present bowel sounds Extremities: edema, no tenderness, no cyanosis, other Laboratory Tests Test 03/15/20 05:56 White Blood Count 9.0 K/UL (4.8-10.8) Red Blood Count 2.16 M/UL (4.20-5.40) L Hemoglobin 6.6 G/DL (12.0-16.0) *L Hematocrit 19.6 % (37.0-47.0) L Mean Corpuscular Volume 91 FL (80-99) Mean Corpuscular Hemoglobin 30.4 PG (27.0-31.0) Mean Corpuscular Hemoglobin Concent 33.6 G/DL (32.0-36.0) Red Cell Distribution Width 13.1 % (11.6-14.8) Platelet Count 142 K/UL (150-450) L Mean Platelet Volume 6.6 FL (6.5-10.1) Neutrophils (%) (Auto) % (45.0-75.0) Lymphocytes (%) (Auto) % (20.0-45.0) Monocytes (%) (Auto) % (1.0-10.0) Eosinophils (%) (Auto) % (0.0-3.0) Basophils (%) (Auto) % (0.0-2.0) Differential Total Cells Counted 100 Neutrophils % (Manual) 80 % (45-75) H Lymphocytes % (Manual) 15 % (20-45) L Monocytes % (Manual) 3 % (1-10) Eosinophils % (Manual) 2 % (0-3) Basophils % (Manual) 0 % (0-2) Band Neutrophils 0 % (0-8) Platelet Estimate Decreased L Platelet Morphology Normal Polychromasia 1+ Hypochromasia 1+ Sodium Level 139 MMOL/L (136-145) Potassium Level 3.0 MMOL/L (3.5-5.1) L Chloride Level 98 MMOL/L (98-107) Carbon Dioxide Level 29 MMOL/L (21-32) Anion Gap 12 mmol/L (5-15) Blood Urea Nitrogen 47 mg/dL (7-18) H Creatinine 6.2 MG/DL (0.55-1.30) H Estimat Glomerular Filtration Rate 7.0 mL/min (>60) Glucose Level 140 MG/DL (74-106) H Calcium Level 7.9 MG/DL (8.5-10.1) L Phosphorus Level 6.1 MG/DL (2.5-4.9) H Magnesium Level 2.3 MG/DL (1.8-2.4) Total Bilirubin 0.3 MG/DL (0.2-1.0) Aspartate Amino Transf (AST/SGOT) 14 U/L (15-37) L Alanine Aminotransferase (ALT/SGPT) 12 U/L (12-78) Alkaline Phosphatase 79 U/L (46-116) Total Protein 6.3 G/DL (6.4-8.2) L Albumin 2.2 G/DL (3.4-5.0) L Globulin 4.1 g/dL Albumin/Globulin Ratio 0.5 (1.0-2.7) L Plan Problems: (1) Anemia (2) Pleural effusion (3) UTI (urinary tract infection) (4) Chronic renal failure (5) Pneumonia (6) Dehydration (7) Hyperkalemia Assessment & Plan: Leukocytosis hyperkalemia with medical management since seen last night to the course of today patient's potassium is only gone from 6.7 -6.5 and will likely worsen her given condition. She is symptomatic ill- appearing and will require hemodialysis. Does not have access hemodialysis access indicated recommended. Risk benefits alternative discussed patient in detail line placed at bedside. Coags noted labs noted patient chart reviewed in detail We will monitor overnight and place right femoral dialysis line. Please see procedure note. Late entry as patient seen prior HD as per nephrology Okay for diet from surgical standpoint We will follow with recommendations Thank you for let me participate in patient's care cont HD will hopefully be able to resume PD upon d/c (8) Type 2 diabetes mellitus, uncontrolled (9) Elevated brain natriuretic peptide (BNP) level (10) Azotemia (11) Bronchitis (12) Vomiting (13) Intractable nausea and vomiting (14) Asthma (15) Chest pain, rule out acute myocardial infarction (16) Acute dyspnea (17) Functional quadriplegia Landon Elias March 15, 2020 11:06
[2020-03-15] MEDS: HYDROcodone/Acetamin 5/325 tab ORAL PRN ×2 (11:50→22:01)
[2020-03-15 12:00] VITALS: BP 159/64
--- NOTE | 2020-03-15 14:00 | Internal Med Progress Note ---
Subjective Date of Service: March 15, 2020 Physician Name Emilie Davis Attending Physician Poli St M.D. Current Medications Medications (Trade) Dose Ordered Sig/Amarilis Route PRN Reason Start Time Stop Time Status Last Admin Dose Admin Acetaminophen (Tylenol) 650 mg Q4H PRN ORAL Temp >100.5 03/15/20 12:45 04/14/20 12:44 Acetaminophen/ Hydrocodone Bitart ([place] 5/325) 1 tab Q6H PRN ORAL Mild Pain (Pain Scale 1-3) 03/14/20 11:45 03/20/20 10:14 03/15/20 11:50 Atorvastatin Calcium (Lipitor) 40 mg BEDTIME ORAL 03/13/20 21:00 06/11/20 20:59 03/14/20 21:06 Calcium Acetate (Phoslo) 667 mg TIAC ORAL 03/15/20 11:30 06/13/20 11:29 03/15/20 11:50 Carvedilol (Coreg) 6.25 mg BID ORAL 03/13/20 09:00 04/12/20 08:59 03/15/20 09:40 Cefepime HCl 1 gm/ Dextrose 55 ml @ 110 mls/hr Q24H IVPB 03/13/20 18:00 03/20/20 17:59 03/14/20 18:47 Clonidine HCl (Catapres Tab) 0.1 mg Q6H PRN ORAL For High Blood Pressure 03/13/20 01:00 06/11/20 00:59 03/15/20 11:51 Dextrose (Dextrose 50%) 25 ml Q30M PRN IV Hypoglycemia 03/13/20 01:00 06/11/20 00:59 Dextrose (Dextrose 50%) 50 ml Q30M PRN IV Hypoglycemia 03/13/20 01:00 06/11/20 00:59 Epoetin Gustabo (Epoetin Gustabo(ESRD on dialysis)) 4,000 unit SUN-SUN-SUN SUBQ 03/15/20 21:00 06/13/20 20:59 Furosemide (Lasix) 40 mg DAILY ORAL 03/13/20 09:00 04/12/20 08:59 03/15/20 09:00 Insulin Aspart (NovoLOG) BEFORE MEALS AND HS SUBQ 03/13/20 06:30 06/11/20 06:29 03/15/20 12:06 Insulin Detemir (Levemir) 10 units BEDTIME SUBQ 03/13/20 01:30 06/11/20 01:29 03/14/20 21:08 Pregabalin (Lyrica) 75 mg BID ORAL 03/13/20 18:00 04/27/20 17:59 03/15/20 09:44 Tramadol HCl (Ultram) 50 mg Q6H PRN ORAL For Pain (4-10) 03/14/20 11:45 03/21/20 11:44 03/14/20 12:55 Vancomycin HCl (Vanco rx to dose) 1 ea DAILY MISC 03/13/20 09:00 04/12/20 08:59 Zolpidem Tartrate (Ambien) 5 mg BEDTIME PRN ORAL Insomnia 03/13/20 01:15 03/20/20 01:14 Allergies: Coded Allergies: No Known Allergies (Unverified , 11/24/15) Subjective Patient had HD this am; she is feeling better, but HGB low , scheduled to receive one unit today. Will check SOBT. Continue AB, Urine Cx +. Adjust Coreg for elevated BP Objective Last Vital Signs Date Time Temp Pulse Resp B/P (MAP) Pulse Ox O2 Delivery O2 Flow Rate FiO2 03/15/20 12:20 98.8 03/15/20 12:00 78 03/15/20 12:00 20 159/64 (95) 95 03/15/20 09:00 Nasal Cannula 2.0 Laboratory Tests Test 03/15/20 05:56 White Blood Count 9.0 K/UL (4.8-10.8) Red Blood Count 2.16 M/UL (4.20-5.40) L Hemoglobin 6.6 G/DL (12.0-16.0) *L Hematocrit 19.6 % (37.0-47.0) L Mean Corpuscular Volume 91 FL (80-99) Mean Corpuscular Hemoglobin 30.4 PG (27.0-31.0) Mean Corpuscular Hemoglobin Concent 33.6 G/DL (32.0-36.0) Red Cell Distribution Width 13.1 % (11.6-14.8) Platelet Count 142 K/UL (150-450) L Mean Platelet Volume 6.6 FL (6.5-10.1) Neutrophils (%) (Auto) % (45.0-75.0) Lymphocytes (%) (Auto) % (20.0-45.0) Monocytes (%) (Auto) % (1.0-10.0) Eosinophils (%) (Auto) % (0.0-3.0) Basophils (%) (Auto) % (0.0-2.0) Differential Total Cells Counted 100 Neutrophils % (Manual) 80 % (45-75) H Lymphocytes % (Manual) 15 % (20-45) L Monocytes % (Manual) 3 % (1-10) Eosinophils % (Manual) 2 % (0-3) Basophils % (Manual) 0 % (0-2) Band Neutrophils 0 % (0-8) Platelet Estimate Decreased L Platelet Morphology Normal Polychromasia 1+ Hypochromasia 1+ Sodium Level 139 MMOL/L (136-145) Potassium Level 3.0 MMOL/L (3.5-5.1) L Chloride Level 98 MMOL/L (98-107) Carbon Dioxide Level 29 MMOL/L (21-32) Anion Gap 12 mmol/L (5-15) Blood Urea Nitrogen 47 mg/dL (7-18) H Creatinine 6.2 MG/DL (0.55-1.30) H Estimat Glomerular Filtration Rate 7.0 mL/min (>60) Glucose Level 140 MG/DL (74-106) H Calcium Level 7.9 MG/DL (8.5-10.1) L Phosphorus Level 6.1 MG/DL (2.5-4.9) H Magnesium Level 2.3 MG/DL (1.8-2.4) Total Bilirubin 0.3 MG/DL (0.2-1.0) Aspartate Amino Transf (AST/SGOT) 14 U/L (15-37) L Alanine Aminotransferase (ALT/SGPT) 12 U/L (12-78) Alkaline Phosphatase 79 U/L (46-116) Total Protein 6.3 G/DL (6.4-8.2) L Albumin 2.2 G/DL (3.4-5.0) L Globulin 4.1 g/dL Albumin/Globulin Ratio 0.5 (1.0-2.7) L Microbiology Date/Time Source Procedure Growth Status 03/12/20 18:00 Blood Blood Culture - Preliminary NO GROWTH AFTER 48 HOURS Resulted 03/12/20 17:50 Blood Blood Culture - Preliminary NO GROWTH AFTER 48 HOURS Resulted 03/12/20 22:12 Nasal Nares MRSA Culture - Final NO METHICILLIN RESISTANT STAPH AUREUS... Complete 03/12/20 18:10 Nasopharynx Coronavirus COVID-19 PCR (HIGINIO) - Final Complete 03/12/20 18:10 Urine,Clean Catch Urine Culture - Final Enterococcus Faecium Complete 03/12/20 22:12 Rectum - Final NO CARBAPENEM-RESISTANT ENTEROBACTERI... Complete 03/12/20 22:12 Rectum VRE Culture - Final NO VANCOMYCIN RESISTANT ENTEROCOCCUS ... 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 Assessment/Plan Assessment/Plan Assessment #ESRD on PD; malfunctioning PD cath, acutely requiring HD access s/p placement w / associated hyperkalemia presenting at >6 #R/O COVID vs HCAP vs Pulmonary Edema; CXR cannot rule out underlying lesion #Sepsis--> multifactoral 2/2 UTI + CAP +/- PD cath infection, pending paz cultures, peritoneal fluid studies if ID deems appropriate #Blood transfusion requiring anemia #Uremia/Metabolic Acidosis -Resolved #HTN #DMII Plan Consultants include surgery s/p HD access, Cardio, Nephro Continue Vancomycin and Cefepime IV, Paz Cx COVID pending ,predictive markers noted Continue HD as schedule Transfuse PRBC to maintain above 7 as needed, SOBT pending Coreg and Atorvastatin, Lasix PO; adjust prn, BP to improve w/ aggressive HD Weight based insulin dosing, goal blood sugar less then 180 while inpatient, Levemir QHS Obtain and Reconcile home meds -Complete Maeve/1800 ADA Diet DVT ppx 03/14: It seems patient would prefer to be on PD moving forward. Will continue to monitor in house to see if this is viable. Appreciate Consultants. Continue AB and await cultures and COVID. Repeat CXR for am to assess improvement of effusion and pulmonary edema. 03/15: Transfuse PRBC, increase Coreg, SOBT. Continue AB. Emilie Davis D.O. March 15, 2020 13:59
[2020-03-15 16:00] VITALS: BP 171/77
--- NOTE | 2020-03-15 16:35 | NUR ---
NURSE NOTES: Reported Covid[address]i St. Received order to remove from droplet/contact isolation.
[2020-03-15] MEDS: Cefepime HCl 1 GM in D5W 55 ML IVPB SCH (17:15)
[2020-03-15] MEDS: Carvedilol 12.5mg tab ORAL SCH (17:16)
--- NOTE | 2020-03-15 19:33 | NUR ---
HAND-OFF: Report given to Kait Lindsey RN. Patient in semi-Hodges's position, on 2 liters nasal cannula, sleeping, bed in lowest position, call light within reach, IV patent in right wrist 22 gauge, no c/o pain, in no apparent distress.
[2020-03-15 20:00] VITALS: BP 170/73
--- NOTE | 2020-03-15 20:00 | NUR ---
NURSE NOTES: RECEIVED PATIENT LYING IN BED, AWAKE, ALERT/ORIENTED X4, VERBALLY RESPONSIVE, DENIES PAIN. S/P DIALYSIS VIA RIGHT FEMORAL LIZZY CATHETER/4L REMOVED, NO EVIDENCE OF BLEEDING, DRESSING DRY. NO SIGNS AND SYMPTOMS OF ACUTE CARDIO RESPIRATORY DISTRESS/SHORTNESS OF BREATH, DENIES CHEST PAIN, NO PERIPHERAL EDEMA NOTED, CONTINUE ON QUALITY CONTROLLER. IV INTACT NO REDNESS/SWELLING NOTED TO SITE. ABDOMEN OBESE/SOFT/NON TENDER/AUDIBLE BOWEL SOUNDS, DENIES N/V/D. SIDE RAILS UP X3/BED IN LOWEST POSITION FOR SAFETY, BED ALARM ACTIVATED. FREQUENT ROUNDING FOR SAFETY/NEEDS. CONTINUE WITH CURRENT PLAN OF CARE. NAD.
[2020-03-15 20:20] VITALS: BP 149/76
[2020-03-15] MEDS ORDERED: Epoetin Alfa-EPBX(ESRD on dialysis)4000 units/ml vial SUBQ SCH (21:00)
[2020-03-15] MEDS: Atorvastatin 20mg tab ORAL SCH (21:55)
[2020-03-15] MEDS: Levemir Flexpen SUBQ SCH (21:57)
--- NOTE | 2020-03-16 01:50 | NUR ---
NURSE NOTES: REFUSED MIDNIGHT VITALS-
[2020-03-16 04:00] VITALS: BP 155/66
[2020-03-16] MEDS: NovoLOG Insulin Flexpen SUBQ SCH ×4 (06:30→21:07)
--- NOTE | 2020-03-16 06:30 | NUR ---
NURSE NOTES: BLOOD GLUCOSE MONITORED VIA GLUCOMETER WITH RESULT 93MG/DL, ASYMPTOMATIC, NO SLIDING SCALE COVERAGE. RESTED WELL. SAFETY MAINTAINED. NAD.
[2020-03-16 08:00] VITALS: BP 166/66
--- NOTE | 2020-03-16 08:13 | NUR ---
HAND-OFF: Report given to TAMARA HERNANDEZ.
--- NOTE | 2020-03-16 08:15 | NUR ---
NURSE NOTES: Received report from DYAN Carballo. Pt A/O x4, denies any pain at the moment, no s/sx of acute distress, breathing even and unlabored in 2L NC. IV site patent and asymptomatic. Bed on lowest position, call light within reach. Will continue plan of care.
[2020-03-16 08:16] LABS: BASOPHILS % (AUTO) 1.8 % (0.0-2.0); EOSINOPHILS % (AUTO) 5.8 % (0.0-3.0); HEMATOCRIT 25.3 % (37.0-47.0); HEMOGLOBIN 8.7 G/DL (12.0-16.0); LYMPHOCYTES % (AUTO) 7.5 % (20.0-45.0); MEAN CORPUSCULAR VOLUME 89 FL (80-99); MONOCYTES % (AUTO) 7.7 % (1.0-10.0); NEUTROPHILS % (AUTO) 77.2 % (45.0-75.0); PLATELET COUNT 160 K/UL (150-450); RED BLOOD COUNT 2.86 M/UL (4.20-5.40); RED CELL DISTRIBUTION WIDTH 12.8 % (11.6-14.8); WHITE BLOOD COUNT 8.1 K/UL (4.8-10.8)
[2020-03-16 08:31] LABS: ALANINE AMINOTRANSFERASE 11 U/L (12-78); ALBUMIN 2.4 G/DL (3.4-5.0); ALBUMIN/GLOBULIN RATIO 0.5 (1.0-2.7); ALKALINE PHOSPHATASE 86 U/L (46-116); ANION GAP 14 mmol/L (5-15); ASPARTATE AMINO TRANSFERASE 14 U/L (15-37); BILIRUBIN,TOTAL 0.4 MG/DL (0.2-1.0); BLOOD UREA NITROGEN 63 mg/dL (7-18); CALCIUM 7.9 MG/DL (8.5-10.1); CARBON DIOXIDE 27 MMOL/L (21-32); CHLORIDE 95 MMOL/L (98-107); CREATININE 8.5 MG/DL (0.55-1.30); POTASSIUM 3.5 MMOL/L (3.5-5.1); SODIUM 136 MMOL/L (136-145)
[2020-03-16 08:40] LABS: PHOSPHORUS 8.6 MG/DL (2.5-4.9)
--- NOTE | 2020-03-16 09:08 | NUR ---
CASE MANAGEMENT:REVIEW 54 YR OLD FEMALE BIBA PMH: ESRD ON HD CC; GENERALIZED WEAKNESS. MISSED DIALYSIS SI: PNEUMONIA. UTI. HYPERKALEMIA 98.6 74 19 158/74 93% ON 2L/NC WBC+11.1 H/H-9.0/29.7 K+6.7 BUN+108 CR+12.5 IS: IV VANCOMYCIN IV CEFEPIME CHEST XRAY COVID 19 SWAB BLOOD CX : TO TELEMETRY DCP: FROM HOME 03/15/20 SI: H/H-6.6/19.6 IS: TRANSFUSE 1 UNIT PRBC'S : TELEMETRY STATUS DCP: FROM HOME
[2020-03-16] MEDS: Furosemide 40mg tab ORAL SCH (09:31)
[2020-03-16] MEDS: Carvedilol 12.5mg tab ORAL SCH ×2 (09:32→21:06)
[2020-03-16] MEDS: Lyrica 75mg cap ORAL SCH ×2 (09:32→17:18)
--- NOTE | 2020-03-16 10:23 | NUR ---
*-*DISCHARGE PLANNING*-* PATIENT HAS BEEN REFERRED TO [facility] P: [phone] F: [phone]
[2020-03-16 11:30] VITALS: BP 182/78
--- NOTE | 2020-03-16 11:46 | Cardiology Progress Note ---
Assessment/Plan Status: stable Assessment/Plan Assessment/Plan Status: stable Assessment/Plan: Assessment ESRD Hyperkalemia Volume overload r/o COVID PNA IDDM HTN HLD PLAN: -Maintain Dialysis -Serial CXR - persistent right pleural effusion: CONSIDER THORACENTESIS albeit patient stable on room air -serial H/H, transfused 1 unit PRBC -Continue coreg - dose increased and tolerating -Continue lasix -Monitor on telemetry given electrolyte abnormalities -Echocardiogram pending -Outpatient stress test -Continue Norvasc 10 mg for stage 2 hypertension -DASH diet -Dispo planning, no further inpatient cardiac plans, follow up outpatient Subjective Cardiovascular: Reports: no symptoms Respiratory: Reports: no symptoms Gastrointestinal/Abdominal: Reports: no symptoms Genitourinary: Reports: no symptoms Subjective No acute events, s/p PRBC transfusion, tolerating medications, dispo planning in process Objective Last 24 Hour Vital Signs Date Time Temp Pulse Resp B/P (MAP) Pulse Ox O2 Delivery O2 Flow Rate FiO2 03/16/20 11:24 182/78 03/16/20 09:32 70 166/66 03/16/20 08:00 98.1 70 18 166/66 (99) 96 03/16/20 07:47 68 03/16/20 04:00 97.8 84 16 155/66 (95) 92 03/16/20 04:00 66 03/16/20 04:00 Nasal Cannula 2.0 03/16/20 00:00 Nasal Cannula 2.0 03/16/20 00:00 67 03/15/20 22:31 98.8 03/15/20 21:00 Nasal Cannula 2.0 03/15/20 20:20 149/76 (100) 03/15/20 20:00 69 03/15/20 20:00 98.3 71 18 170/73 (105) 03/15/20 17:45 98.8 03/15/20 17:16 74 159/64 03/15/20 16:00 74 03/15/20 16:00 97.9 75 20 171/77 (108) 98 03/15/20 12:00 78 03/15/20 12:00 97.9 78 20 159/64 (95) 95 03/15/20 11:51 166/70 General Appearance: no apparent distress, alert EENT: PERRL/EOMI, normal ENT inspection, TMs normal, pharynx normal Neck: non-tender, normal alignment, supple, normal inspection, no JVD Rhythm: NSR Respiratory/Chest: normal breath sounds, decreased breath sounds, crackles/ rales, rhonchi - right Abdomen: normal bowel sounds, non tender, soft Extremities: normal range of motion, non-tender, normal inspection, no calf tenderness, no swelling 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, no motor/sensory deficits, alert, oriented x 3, responsive Intake and Output 03/15/20 03/16/20 19:00 07:00 Intake Total 850 ml 480 ml Output Total 4000 ml Balance -3150 ml 480 ml Intake Oral 600 ml 480 ml Blood Product 250 ml Output Hemodialysis UF 4000 ml Laboratory Tests Test 03/16/20 07:25 White Blood Count 8.1 K/UL (4.8-10.8) Red Blood Count 2.86 M/UL (4.20-5.40) L Hemoglobin 8.7 G/DL (12.0-16.0) #L Hematocrit 25.3 % (37.0-47.0) L Mean Corpuscular Volume 89 FL (80-99) Mean Corpuscular Hemoglobin 30.6 PG (27.0-31.0) Mean Corpuscular Hemoglobin Concent 34.4 G/DL (32.0-36.0) Red Cell Distribution Width 12.8 % (11.6-14.8) Platelet Count 160 K/UL (150-450) Mean Platelet Volume 6.4 FL (6.5-10.1) L Neutrophils (%) (Auto) 77.2 % (45.0-75.0) H Lymphocytes (%) (Auto) 7.5 % (20.0-45.0) L Monocytes (%) (Auto) 7.7 % (1.0-10.0) Eosinophils (%) (Auto) 5.8 % (0.0-3.0) H Basophils (%) (Auto) 1.8 % (0.0-2.0) Sodium Level 136 MMOL/L (136-145) Potassium Level 3.5 MMOL/L (3.5-5.1) Chloride Level 95 MMOL/L (98-107) L Carbon Dioxide Level 27 MMOL/L (21-32) Anion Gap 14 mmol/L (5-15) Blood Urea Nitrogen 63 mg/dL (7-18) H Creatinine 8.5 MG/DL (0.55-1.30) H Estimat Glomerular Filtration Rate 4.8 mL/min (>60) Glucose Level 87 MG/DL (74-106) Calcium Level 7.9 MG/DL (8.5-10.1) L Phosphorus Level 8.6 MG/DL (2.5-4.9) H Magnesium Level 2.5 MG/DL (1.8-2.4) H Total Bilirubin 0.4 MG/DL (0.2-1.0) Aspartate Amino Transf (AST/SGOT) 14 U/L (15-37) L Alanine Aminotransferase (ALT/SGPT) 11 U/L (12-78) L Alkaline Phosphatase 86 U/L (46-116) Total Protein 6.8 G/DL (6.4-8.2) Albumin 2.4 G/DL (3.4-5.0) L Globulin 4.4 g/dL Albumin/Globulin Ratio 0.5 (1.0-2.7) L Random Vancomycin Level 27.8 ug/mL Roberto Bay MD March 16, 2020 11:46
[2020-03-16 13:00] VITALS: BP 131/53
--- NOTE | 2020-03-16 13:17 | Nephrology Progress Note ---
Assessment/Plan Plan #ESRD in PD- missed PD due to not being available to help #hyperkalemia #Anemia of CKD #volume overload #possible pneumonia #IDDM #HTN #HLD - assess need for HD daily-HD tomorrow - add amlodipine 5mg daily - patient prefers to get back on PD when she goes home- currently in the hospital and not able to help with PD at home - EPO 4k TIW - antibiotics per ID - pulm eval - BG control - ISS - continue coreg 12.5mg BID - continue lasix - continue lantus - check iron panel, ferritin-> pending - check PTH, vit D-> pending - monitor BMP, mag, phos daily time spent 70 min > 50% on care coordination and counseling Subjective ROS Limited/Unobtainable: No Constitutional: Denies: no symptoms, chills, diaphoresis, fever, malaise, weakness, other HEENT: Denies: no symptoms, eye pain, blurred vision, tearing, double vision, ear pain, ear discharge, nose pain, nose congestion, throat pain, throat swelling, mouth pain, mouth swelling, other Genitourinary: Denies: no symptoms, burning, discharge, frequency, flank pain, hematuria, incontinence, pain, urgency, other Neurologic/Psychiatric: Denies: no symptoms, anxiety, depressed, emotional problems, headache, numbness, paresthesia, pre-existing deficit, seizure, tingling, tremors, weakness, other Subjective underwent HD yesterday hemoglbin 8.7 s/p one unit of prbc BP uptrending will add amlodipine 5mg daily Objective Objective Last 24 Hour Vital Signs Date Time Temp Pulse Resp B/P (MAP) Pulse Ox O2 Delivery O2 Flow Rate FiO2 03/16/20 11:24 182/78 03/16/20 09:32 70 166/66 03/16/20 09:00 Nasal Cannula 2.0 03/16/20 08:00 98.1 70 18 166/66 (99) 96 03/16/20 07:47 68 03/16/20 04:00 97.8 84 16 155/66 (95) 92 03/16/20 04:00 66 03/16/20 04:00 Nasal Cannula 2.0 03/16/20 00:00 Nasal Cannula 2.0 03/16/20 00:00 67 03/15/20 22:31 98.8 03/15/20 21:00 Nasal Cannula 2.0 03/15/20 20:20 149/76 (100) 03/15/20 20:00 69 03/15/20 20:00 98.3 71 18 170/73 (105) 03/15/20 17:45 98.8 03/15/20 17:16 74 159/64 03/15/20 16:00 74 03/15/20 16:00 97.9 75 20 171/77 (108) 98 Intake and Output 03/15/20 03/16/20 19:00 07:00 Intake Total 850 ml 480 ml Output Total 4000 ml Balance -3150 ml 480 ml Intake Oral 600 ml 480 ml Blood Product 250 ml Output Hemodialysis UF 4000 ml Laboratory Tests 03/16/20 07:25: White Blood Count 8.1, Red Blood Count 2.86L, Hemoglobin 8.7#L, Hematocrit 25.3L , Mean Corpuscular Volume 89, Mean Corpuscular Hemoglobin 30.6, Mean Corpuscular Hemoglobin Concent 34.4, Red Cell Distribution Width 12.8, Platelet Count 160, Mean Platelet Volume 6.4L, Neutrophils (%) (Auto) 77.2H, Lymphocytes (%) (Auto) 7.5L, Monocytes (%) (Auto) 7.7, Eosinophils (%) (Auto) 5.8H, Basophils (%) (Auto) 1.8, Sodium Level 136, Potassium Level 3.5, Chloride Level 95L, Carbon Dioxide Level 27, Anion Gap 14, Blood Urea Nitrogen 63H, Creatinine 8.5H, Estimat Glomerular Filtration Rate 4.8, Glucose Level 87, Calcium Level 7.9L, Phosphorus Level 8.6H, Magnesium Level 2.5H, Total Bilirubin 0.4, Aspartate Amino Transf (AST/SGOT) 14L, Alanine Aminotransferase (ALT/SGPT) 11L, Alkaline Phosphatase 86, Total Protein 6.8, Albumin 2.4L, Globulin 4.4, Albumin/ Globulin Ratio 0.5L, Random Vancomycin Level 27.8 Height (Feet): 5 Height (Inches): 3.00 Weight (Pounds): 195 Objective General Appearance: WD/WN, no apparent distress Lines, tubes and drains: peripheral HEENT: normocephalic Neck: non-tender Respiratory/Chest: rhonchi - bilaterally Cardiovascular/Chest: normal peripheral pulses Abdomen: normal bowel sounds, non tender, soft, hypoactive bowel sounds, other - PD catheter clean dry intact Extremities: normal range of motion Neurologic: alert, oriented x [address] M.D. March 16, 2020 13:17
--- NOTE | 2020-03-16 14:00 | NUR ---
NURSE NOTES: spoke with Dr St and gave an order okay to transfer to [facility].
[2020-03-16] MEDS ORDERED: HYDROcodone/Acetamin 5/325 tab ORAL PRN (14:02)
[2020-03-16] MEDS ORDERED: traMADol 50mg tab ORAL PRN (14:04)
[2020-03-16] MEDS ORDERED: Zolpidem 5mg tab ORAL PRN (14:05)
--- NOTE | 2020-03-16 14:13 | Surgery Progress Note ---
Surgery Progress Note Subjective Procedure Performed Right femoral temporary hemodialysis catheter insertion Symptoms: improved, tolerating diet, passing flatus, BM Objective Last 24 Hour Vital Signs Date Time Temp Pulse Resp B/P (MAP) Pulse Ox O2 Delivery O2 Flow Rate FiO2 03/16/20 11:30 97.5 70 20 182/78 (112) 98 03/16/20 11:24 182/78 03/16/20 09:32 70 166/66 03/16/20 09:00 Nasal Cannula 2.0 03/16/20 08:00 98.1 70 18 166/66 (99) 96 03/16/20 07:47 68 03/16/20 04:00 97.8 84 16 155/66 (95) 92 03/16/20 04:00 66 03/16/20 04:00 Nasal Cannula 2.0 03/16/20 00:00 Nasal Cannula 2.0 03/16/20 00:00 67 03/15/20 22:31 98.8 03/15/20 21:00 Nasal Cannula 2.0 03/15/20 20:20 149/76 (100) 03/15/20 20:00 69 03/15/20 20:00 98.3 71 18 170/73 (105) 03/15/20 17:45 98.8 03/15/20 17:16 74 159/64 03/15/20 16:00 74 03/15/20 16:00 97.9 75 20 171/77 (108) 98 I&O Intake and Output 03/15/20 03/16/20 19:00 07:00 Intake Total 850 ml 480 ml Output Total 4000 ml Balance -3150 ml 480 ml Intake Oral 600 ml 480 ml Blood Product 250 ml Output Hemodialysis UF 4000 ml Dressing: dry Wound: clean Cardiovascular: RSR Respiratory: clear, decreased breath sounds Abdomen: soft, non-tender, present bowel sounds Extremities: no edema, no tenderness, no cyanosis Laboratory Tests Test 03/16/20 07:25 White Blood Count 8.1 K/UL (4.8-10.8) Red Blood Count 2.86 M/UL (4.20-5.40) L Hemoglobin 8.7 G/DL (12.0-16.0) #L Hematocrit 25.3 % (37.0-47.0) L Mean Corpuscular Volume 89 FL (80-99) Mean Corpuscular Hemoglobin 30.6 PG (27.0-31.0) Mean Corpuscular Hemoglobin Concent 34.4 G/DL (32.0-36.0) Red Cell Distribution Width 12.8 % (11.6-14.8) Platelet Count 160 K/UL (150-450) Mean Platelet Volume 6.4 FL (6.5-10.1) L Neutrophils (%) (Auto) 77.2 % (45.0-75.0) H Lymphocytes (%) (Auto) 7.5 % (20.0-45.0) L Monocytes (%) (Auto) 7.7 % (1.0-10.0) Eosinophils (%) (Auto) 5.8 % (0.0-3.0) H Basophils (%) (Auto) 1.8 % (0.0-2.0) Sodium Level 136 MMOL/L (136-145) Potassium Level 3.5 MMOL/L (3.5-5.1) Chloride Level 95 MMOL/L (98-107) L Carbon Dioxide Level 27 MMOL/L (21-32) Anion Gap 14 mmol/L (5-15) Blood Urea Nitrogen 63 mg/dL (7-18) H Creatinine 8.5 MG/DL (0.55-1.30) H Estimat Glomerular Filtration Rate 4.8 mL/min (>60) Glucose Level 87 MG/DL (74-106) Calcium Level 7.9 MG/DL (8.5-10.1) L Phosphorus Level 8.6 MG/DL (2.5-4.9) H Magnesium Level 2.5 MG/DL (1.8-2.4) H Total Bilirubin 0.4 MG/DL (0.2-1.0) Aspartate Amino Transf (AST/SGOT) 14 U/L (15-37) L Alanine Aminotransferase (ALT/SGPT) 11 U/L (12-78) L Alkaline Phosphatase 86 U/L (46-116) Total Protein 6.8 G/DL (6.4-8.2) Albumin 2.4 G/DL (3.4-5.0) L Globulin 4.4 g/dL Albumin/Globulin Ratio 0.5 (1.0-2.7) L Random Vancomycin Level 27.8 ug/mL Plan Problems: (1) Anemia (2) Pleural effusion (3) UTI (urinary tract infection) (4) Chronic renal failure (5) Pneumonia (6) Dehydration (7) Hyperkalemia Assessment & Plan: Leukocytosis hyperkalemia with medical management since seen last night to the course of today patient's potassium is only gone from 6.7 -6.5 and will likely worsen her given condition. She is symptomatic ill- appearing and will require hemodialysis. Does not have access hemodialysis access indicated recommended. Risk benefits alternative discussed patient in detail line placed at bedside. Coags noted labs noted patient chart reviewed in detail We will monitor overnight and place right femoral dialysis line. Please see procedure note. Late entry as patient seen prior HD as per nephrology Okay for diet from surgical standpoint We will follow with recommendations Thank you for let me participate in patient's care cont HD will hopefully be able to resume PD upon d/c (8) Type 2 diabetes mellitus, uncontrolled (9) Elevated brain natriuretic peptide (BNP) level (10) Azotemia (11) Bronchitis (12) Vomiting (13) Intractable nausea and vomiting (14) Asthma (15) Chest pain, rule out acute myocardial infarction (16) Acute dyspnea (17) Functional quadriplegia Landon Elias March 16, 2020 14:13
--- NOTE | 2020-03-16 14:46 | Internal Med Progress Note ---
Subjective Date of Service: March 16, 2020 Physician Name Emilie Davis Attending Physician Poli St M.D. Current Medications Medications (Trade) Dose Ordered Sig/Amarilis Route PRN Reason Start Time Stop Time Status Last Admin Dose Admin Acetaminophen (Tylenol) 650 mg Q4H PRN ORAL Temp >100.5 03/16/20 14:01 04/15/20 14:00 Acetaminophen/ Hydrocodone Bitart ([place] 5/325) 1 tab Q6H PRN ORAL Mild Pain (Pain Scale 1-3) 03/16/20 14:02 03/23/20 14:01 Amlodipine Besylate (Norvasc) 5 mg DAILY ORAL 03/17/20 09:00 04/16/20 08:59 Atorvastatin Calcium (Lipitor) 40 mg BEDTIME ORAL 03/16/20 21:00 06/11/20 20:59 Calcium Acetate (Phoslo) 667 mg TIAC ORAL 03/16/20 16:30 06/13/20 11:29 Carvedilol (Coreg) 12.5 mg Q12HR ORAL 03/16/20 21:00 04/15/20 20:59 Cefepime HCl 1 gm/ Dextrose 55 ml @ 110 mls/hr Q24H IVPB 03/16/20 18:00 03/20/20 17:59 Clonidine HCl (Catapres Tab) 0.1 mg Q6H PRN ORAL For High Blood Pressure 03/16/20 14:01 06/14/20 14:00 Dextrose (Dextrose 50%) 25 ml Q30M PRN IV Hypoglycemia 03/16/20 14:01 06/14/20 14:00 Dextrose (Dextrose 50%) 50 ml Q30M PRN IV Hypoglycemia 03/16/20 14:00 06/11/20 00:59 Epoetin Gustabo (Epoetin Gustabo(ESRD on dialysis)) 4,000 unit MON-WED-FRI SUBQ 03/17/20 21:00 06/13/20 20:59 Furosemide (Lasix) 40 mg DAILY ORAL 03/17/20 09:00 04/12/20 08:59 Insulin Aspart (NovoLOG) BEFORE MEALS AND HS SUBQ 03/16/20 16:30 06/11/20 06:29 Insulin Detemir (Levemir) 10 units BEDTIME SUBQ 03/16/20 21:00 06/11/20 01:29 Ondansetron HCl (Zofran) 4 mg Q6H PRN IVP Nausea & Vomiting 03/16/20 14:04 04/15/20 14:03 Pregabalin (Lyrica) 75 mg BID ORAL 03/16/20 18:00 04/27/20 17:59 Tramadol HCl (Ultram) 50 mg Q6H PRN ORAL For Pain (4-10) 03/16/20 14:04 03/23/20 14:03 Vancomycin HCl (Vanco rx to dose) 1 ea DAILY PRN MISC per pharmacy 03/16/20 14:05 04/15/20 14:04 Zolpidem Tartrate (Ambien) 5 mg BEDTIME PRN ORAL Insomnia 03/16/20 14:05 03/23/20 14:04 Allergies: Coded Allergies: No Known Allergies (Unverified , 11/24/15) Subjective Patient is doing well, but she still feels weak. She is scheduled for HD tomorrow. Will requested discharge planning for HH to help with PD if patient is able to go home on this and f/u with nephro. Objective Last Vital Signs Date Time Temp Pulse Resp B/P (MAP) Pulse Ox O2 Delivery O2 Flow Rate FiO2 03/16/20 13:00 104 131/53 (79) 03/16/20 11:30 97.5 20 98 03/16/20 09:00 Nasal Cannula 2.0 Laboratory Tests Test 03/16/20 07:25 White Blood Count 8.1 K/UL (4.8-10.8) Red Blood Count 2.86 M/UL (4.20-5.40) L Hemoglobin 8.7 G/DL (12.0-16.0) #L Hematocrit 25.3 % (37.0-47.0) L Mean Corpuscular Volume 89 FL (80-99) Mean Corpuscular Hemoglobin 30.6 PG (27.0-31.0) Mean Corpuscular Hemoglobin Concent 34.4 G/DL (32.0-36.0) Red Cell Distribution Width 12.8 % (11.6-14.8) Platelet Count 160 K/UL (150-450) Mean Platelet Volume 6.4 FL (6.5-10.1) L Neutrophils (%) (Auto) 77.2 % (45.0-75.0) H Lymphocytes (%) (Auto) 7.5 % (20.0-45.0) L Monocytes (%) (Auto) 7.7 % (1.0-10.0) Eosinophils (%) (Auto) 5.8 % (0.0-3.0) H Basophils (%) (Auto) 1.8 % (0.0-2.0) Sodium Level 136 MMOL/L (136-145) Potassium Level 3.5 MMOL/L (3.5-5.1) Chloride Level 95 MMOL/L (98-107) L Carbon Dioxide Level 27 MMOL/L (21-32) Anion Gap 14 mmol/L (5-15) Blood Urea Nitrogen 63 mg/dL (7-18) H Creatinine 8.5 MG/DL (0.55-1.30) H Estimat Glomerular Filtration Rate 4.8 mL/min (>60) Glucose Level 87 MG/DL (74-106) Calcium Level 7.9 MG/DL (8.5-10.1) L Phosphorus Level 8.6 MG/DL (2.5-4.9) H Magnesium Level 2.5 MG/DL (1.8-2.4) H Total Bilirubin 0.4 MG/DL (0.2-1.0) Aspartate Amino Transf (AST/SGOT) 14 U/L (15-37) L Alanine Aminotransferase (ALT/SGPT) 11 U/L (12-78) L Alkaline Phosphatase 86 U/L (46-116) Total Protein 6.8 G/DL (6.4-8.2) Albumin 2.4 G/DL (3.4-5.0) L Globulin 4.4 g/dL Albumin/Globulin Ratio 0.5 (1.0-2.7) L Random Vancomycin Level 27.8 ug/mL Intake and Output 03/15/20 03/16/20 19:00 07:00 Intake Total 850 ml 480 ml Output Total 4000 ml Balance -3150 ml 480 ml Intake Oral 600 ml 480 ml Blood Product 250 ml Output Hemodialysis UF 4000 ml Objective General Appearance: WD/WN, no apparent distress Cardiovascular: normal rate, regular rhythm, regularly irregular, other - Eric cath in right femoral vein Respiratory/Chest: lungs clear, normal breath sounds, no respiratory distress Abdomen: non tender, soft, other - PD cath noted Extremities: normal range of motion Neurologic: emergency operator II-XII grossly normal Assessment/Plan Assessment/Plan Assessment #ESRD on PD; malfunctioning PD cath, acutely requiring HD access s/p placement w / associated hyperkalemia presenting at >6 #HCAP vs Pulmonary Edema; CXR cannot rule out underlying lesion--> COVID negative #Sepsis--> multifactoral 2/2 UTI + CAP +/- PD cath infection, pending paz cultures, peritoneal fluid studies if ID deems appropriate #Blood transfusion requiring anemia #Uremia/Metabolic Acidosis -Resolved #HTN #DMII Plan Consultants include surgery s/p HD access, Cardio, Nephro Continue Vancomycin and Cefepime IV, Paz Cx Continue HD as schedule Transfuse PRBC to maintain above 7 as needed, SOBT pending Coreg and Atorvastatin, Lasix PO; adjust prn, BP to improve w/ aggressive HD Weight based insulin dosing, goal blood sugar less then 180 while inpatient, Levemir QHS Obtain and Reconcile home meds -Complete Maeve/1800 ADA Diet DVT ppx 03/14: It seems patient would prefer to be on PD moving forward. Will continue to monitor in house to see if this is viable. Appreciate Consultants. Continue AB and await cultures and COVID. Repeat CXR for am to assess improvement of effusion and pulmonary edema. 03/15: Transfuse PRBC, increase Coreg, SOBT. Continue AB. 03/16: Continue present care; HD tomorrow. Emilie Davis D.O. March 16, 2020 14:45
--- NOTE | 2020-03-16 15:16 | NUR ---
NURSE NOTES: Called [facility] for dialysis tomorrow, ordered by Dr St. Addendum: 03/16/20 at 1521 by Amberly Sinha RN Spoke with Lor of [facility].
--- NOTE | 2020-03-16 15:35 | Pulmonology Progress Note ---
Subjective ROS Limited/Unobtainable: No Interval Events: None new Constitutional: Reports: no symptoms HEENT: Repors: no symptoms Respiratory: Reports: no symptoms Cardiovascular: Reports: no symptoms Gastrointestinal/Abdominal: Reports: no symptoms Genitourinary: Reports: no symptoms Allergies: Coded Allergies: No Known Allergies (Unverified , 11/24/15) Objective Last 24 Hour Vital Signs Date Time Temp Pulse Resp B/P (MAP) Pulse Ox O2 Delivery O2 Flow Rate FiO2 03/16/20 13:00 104 131/53 (79) 03/16/20 11:44 73 03/16/20 11:30 97.5 70 20 182/78 (112) 98 03/16/20 11:24 182/78 03/16/20 09:32 70 166/66 03/16/20 09:00 Nasal Cannula 2.0 03/16/20 08:00 98.1 70 18 166/66 (99) 96 03/16/20 07:47 68 03/16/20 04:00 97.8 84 16 155/66 (95) 92 03/16/20 04:00 66 03/16/20 04:00 Nasal Cannula 2.0 03/16/20 00:00 Nasal Cannula 2.0 03/16/20 00:00 67 03/15/20 22:31 98.8 03/15/20 21:00 Nasal Cannula 2.0 03/15/20 20:20 149/76 (100) 03/15/20 20:00 69 03/15/20 20:00 98.3 71 18 170/73 (105) 03/15/20 17:45 98.8 03/15/20 17:16 74 159/64 03/15/20 16:00 74 03/15/20 16:00 97.9 75 20 171/77 (108) 98 Intake and Output 03/15/20 03/16/20 19:00 07:00 Intake Total 850 ml 480 ml Output Total 4000 ml Balance -3150 ml 480 ml Intake Oral 600 ml 480 ml Blood Product 250 ml Output Hemodialysis UF 4000 ml General Appearance: no acute distress HEENT: normocephalic Respiratory: chest wall non-tender, lungs clear Cardiovascular: normal peripheral pulses Abdomen: normal bowel sounds Laboratory Tests 03/16/20 07:25: White Blood Count 8.1, Red Blood Count 2.86L, Hemoglobin 8.7#L, Hematocrit 25.3L , Mean Corpuscular Volume 89, Mean Corpuscular Hemoglobin 30.6, Mean Corpuscular Hemoglobin Concent 34.4, Red Cell Distribution Width 12.8, Platelet Count 160, Mean Platelet Volume 6.4L, Neutrophils (%) (Auto) 77.2H, Lymphocytes (%) (Auto) 7.5L, Monocytes (%) (Auto) 7.7, Eosinophils (%) (Auto) 5.8H, Basophils (%) (Auto) 1.8, Sodium Level 136, Potassium Level 3.5, Chloride Level 95L, Carbon Dioxide Level 27, Anion Gap 14, Blood Urea Nitrogen 63H, Creatinine 8.5H, Estimat Glomerular Filtration Rate 4.8, Glucose Level 87, Calcium Level 7.9L, Phosphorus Level 8.6H, Magnesium Level 2.5H, Total Bilirubin 0.4, Aspartate Amino Transf (AST/SGOT) 14L, Alanine Aminotransferase (ALT/SGPT) 11L, Alkaline Phosphatase 86, Total Protein 6.8, Albumin 2.4L, Globulin 4.4, Albumin/ Globulin Ratio 0.5L, Random Vancomycin Level 27.8 Current Medications Medications (Trade) Dose Ordered Sig/Amarilis Route PRN Reason Start Time Stop Time Status Last Admin Dose Admin Acetaminophen (Tylenol) 650 mg Q4H PRN ORAL Temp >100.5 03/16/20 14:01 04/15/20 14:00 Acetaminophen/ Hydrocodone Bitart ([place] 5/325) 1 tab Q6H PRN ORAL Mild Pain (Pain Scale 1-3) 03/16/20 14:02 03/23/20 14:01 Amlodipine Besylate (Norvasc) 5 mg DAILY ORAL 03/17/20 09:00 04/16/20 08:59 Atorvastatin Calcium (Lipitor) 40 mg BEDTIME ORAL 03/16/20 21:00 06/11/20 20:59 Calcium Acetate (Phoslo) 667 mg TIAC ORAL 03/16/20 16:30 06/13/20 11:29 Carvedilol (Coreg) 12.5 mg Q12HR ORAL 03/16/20 21:00 04/15/20 20:59 Cefepime HCl 1 gm/ Dextrose 55 ml @ 110 mls/hr Q24H IVPB 03/16/20 18:00 03/20/20 17:59 Clonidine HCl (Catapres Tab) 0.1 mg Q6H PRN ORAL For High Blood Pressure 03/16/20 14:01 06/14/20 14:00 Dextrose (Dextrose 50%) 25 ml Q30M PRN IV Hypoglycemia 03/16/20 14:01 06/14/20 14:00 Dextrose (Dextrose 50%) 50 ml Q30M PRN IV Hypoglycemia 03/16/20 14:00 06/11/20 00:59 Epoetin Gustabo (Epoetin Gustabo(ESRD on dialysis)) 4,000 unit SUN-SUN-SUN SUBQ 03/17/20 21:00 06/13/20 20:59 Furosemide (Lasix) 40 mg DAILY ORAL 03/17/20 09:00 04/12/20 08:59 Insulin Aspart (NovoLOG) BEFORE MEALS AND HS SUBQ 03/16/20 16:30 06/11/20 06:29 Insulin Detemir (Levemir) 10 units BEDTIME SUBQ 03/16/20 21:00 06/11/20 01:29 Ondansetron HCl (Zofran) 4 mg Q6H PRN IVP Nausea & Vomiting 03/16/20 14:04 04/15/20 14:03 Pregabalin (Lyrica) 75 mg BID ORAL 03/16/20 18:00 04/27/20 17:59 Tramadol HCl (Ultram) 50 mg Q6H PRN ORAL For Pain (4-10) 03/16/20 14:04 03/23/20 14:03 Vancomycin HCl (Vanco rx to dose) 1 ea DAILY PRN MISC per pharmacy 03/16/20 14:05 04/15/20 14:04 Zolpidem Tartrate (Ambien) 5 mg BEDTIME PRN ORAL Insomnia 03/16/20 14:05 03/23/20 14:04 Assessment/Plan Assessment/Plan IMPRESSION: 1. Large right effusion. 2. Right lung pneumonia. 3. Hyperkalemia. 4. Chronic renal failure on PD. DISCUSSION: Dialysis per renal. Continue broad-spectrum antibiotics, oxygen. Pulmonary hygiene. I will follow carefully. Saturating 92-96% on 2L/min O2 Eh Huynh Omar Syed MD March 16, 2020 15:35
[2020-03-16 16:00] VITALS: BP 147/57
--- NOTE | 2020-03-16 16:36 | NUR ---
*-*DISCHARGE PLANNING*-* PATIENT HAS BEEN REFERRED TO [facility] P: [phone] S/W NANDA, WILL SERVICE PATIENT, BUT IS REQUESTING A DISCHARGE ORDER.
[2020-03-16] MEDS: Cefepime HCl 1 GM in D5W 55 ML IVPB SCH (17:18)
--- NOTE | 2020-03-16 19:00 | NUR ---
NURSE NOTES: RECEIVED PATIENT A/A/OX4, YAKUT SPEAKING AND ABLE TO FOLLOW COMMANDS IN HEBREW. PERSONAL BELONGINGS DONE. IV ACCESS PATENT AND INTACT. LIZZY CATH FOR HD ACCESS IS DRY AND CLEAN. ON O2 2L VIA NC. BED IS IN THE LOWEST POSITION. SIDERAILS ARE UPX3, CALL LIGHT IS WITHIN REACH. WILL CONT TO MONITOR.
--- NOTE | 2020-03-16 19:14 | NUR ---
HAND-OFF: Report given to DYAN Ruff. Pt in stable condition. Endorsed plan of care. Belongings transferred with the pt.
--- NOTE | 2020-03-16 19:20 | NUR ---
HAND-OFF: Report given to
[2020-03-16 20:00] VITALS: BP 150/77
--- NOTE | 2020-03-16 20:14 | NUR ---
NURSE NOTES: Patient in bed, awake, alert x 3. Able to make needs known. Respiration is even, nasal cannula 2 L. No complaint of pain or discomfort noted. Abdomen is soft and non distended. Bed in low and locked position. Iv site noted. Noted with sacral redness, will take pictures and change dressing. Provided safe environment. Call light is at bedside. Will continue plan of care.
--- NOTE | 2020-03-16 20:18 | Infectious Diseases Prog Note ---
Assessment/Plan Assessment/Plan ASSESSMENT AND PLAN: 1. enterococcus uti, possible pna, sepsis, fevers, leukocytosis, covid19 testing negative, ? chf/edema - vancomycin and cefepime - day # 5/7 - clinically improved, fevers and leukocytosis resolved - f/u on labs and chest x-ray 2. Patient has end-stage renal disease. Currently on hemodialysis. She missed her peritoneal dialysis, but has a history of end-stage renal disease on peritoneal dialysis. 3. Diabetes. 4. Hypertension. 5. Blood sugar and blood pressure treatment per primary care team. 6. Hyperlipidemia or dyslipidemia. 7. Insomnia. 8. No known drug allergies. 9. Social history negative. 10. Family history noncontributory. 11. MAR was noted. 12. Case discussed with RN. 13. Continue treatment per primary consultants. 14. Orders were noted and entered. 15. Case communicated with primary team and consultants. Subjective Constitutional: Reports: fatigue; Denies: fever HEENT: Reports: congestion - mild, other - no significant cough Respiratory: Reports: shortness of breath - mild Cardiovascular: Denies: chest pain Gastrointestinal/Abdominal: Denies: nausea, vomiting, diarrhea Genitourinary: Reports: other - no mccormick Neurologic: Denies: headache Psychiatric: Denies: depression Skin: Denies: rash Hematologic: Denies: bleeding Musculoskeletal: Denies: pain Allergies: Coded Allergies: No Known Allergies (Unverified , 11/24/15) Objective Vital Signs Last 24 Hour Vital Signs Date Time Temp Pulse Resp B/P (MAP) Pulse Ox O2 Delivery O2 Flow Rate FiO2 03/16/20 16:00 99.0 71 18 147/57 (87) 97 03/16/20 15:42 70 03/16/20 13:00 104 131/53 (79) 03/16/20 11:44 73 03/16/20 11:30 97.5 70 20 182/78 (112) 98 03/16/20 11:24 182/78 03/16/20 09:32 70 166/66 03/16/20 09:00 Nasal Cannula 2.0 03/16/20 08:00 98.1 70 18 166/66 (99) 96 03/16/20 07:47 68 03/16/20 04:00 97.8 84 16 155/66 (95) 92 03/16/20 04:00 66 03/16/20 04:00 Nasal Cannula 2.0 03/16/20 00:00 Nasal Cannula 2.0 03/16/20 00:00 67 03/15/20 22:31 98.8 03/15/20 21:00 Nasal Cannula 2.0 03/15/20 20:20 149/76 (100) Height (Feet): 5 Height (Inches): 3.00 Weight (Pounds): 195 General Appearance: no acute distress HEENT: normocephalic, atraumatic, anicteric, mucous membranes moist Respiratory/Chest: crackles/rales, rhonchi - bilaterally Cardiovascular: normal rate, regular rhythm, no gallop/murmur, no JVD Abdomen: normal bowel sounds, soft, non tender, no organomegaly, non distended Genitourinary: other - no mccormick Extremities: no cyanosis Skin: no rash Neurologic/Psychiatric: parcel post weigher II-XII grossly normal, alert, responsive Lymphatic: no neck adenopathy Musculoskeletal: no effusion Objective Chest x-ray - 03/15/20 - COMPARISON: Chest x-ray 03/12/20 FINDINGS: Lungs: Slightly improved right upper lung and worsening right lower lung opacities. Mild interstitial thickening. Pleural space: Similar moderate right pleural effusion. No pneumothorax. Heart: Cardiomegaly. Mediastinum: Unremarkable. Bones/joints: Unremarkable. Tubes, lines and devices: Cardiac pacemaker. IMPRESSION: 1. Slightly improved right upper lung and worsening right lower lung opacities. Mild interstitial thickening. 2. Similar moderate right pleural effusion. Microbiology Date/Time Source Procedure Growth Status 03/12/20 18:00 Blood Blood Culture - Preliminary NO GROWTH AFTER 72 HOURS Resulted 03/12/20 22:12 Nasal Nares MRSA Culture - Final NO METHICILLIN RESISTANT STAPH AUREUS... Complete 03/12/20 18:10 Urine,Clean Catch Urine Culture - Final Enterococcus Faecium Complete 03/12/20 22:12 Rectum - Final NO CARBAPENEM-RESISTANT ENTEROBACTERI... Complete Laboratory Tests Test 03/16/20 07:25 White Blood Count 8.1 K/UL (4.8-10.8) Red Blood Count 2.86 M/UL (4.20-5.40) L Hemoglobin 8.7 G/DL (12.0-16.0) #L Hematocrit 25.3 % (37.0-47.0) L Mean Corpuscular Volume 89 FL (80-99) Mean Corpuscular Hemoglobin 30.6 PG (27.0-31.0) Mean Corpuscular Hemoglobin Concent 34.4 G/DL (32.0-36.0) Red Cell Distribution Width 12.8 % (11.6-14.8) Platelet Count 160 K/UL (150-450) Mean Platelet Volume 6.4 FL (6.5-10.1) L Neutrophils (%) (Auto) 77.2 % (45.0-75.0) H Lymphocytes (%) (Auto) 7.5 % (20.0-45.0) L Monocytes (%) (Auto) 7.7 % (1.0-10.0) Eosinophils (%) (Auto) 5.8 % (0.0-3.0) H Basophils (%) (Auto) 1.8 % (0.0-2.0) Sodium Level 136 MMOL/L (136-145) Potassium Level 3.5 MMOL/L (3.5-5.1) Chloride Level 95 MMOL/L (98-107) L Carbon Dioxide Level 27 MMOL/L (21-32) Anion Gap 14 mmol/L (5-15) Blood Urea Nitrogen 63 mg/dL (7-18) H Creatinine 8.5 MG/DL (0.55-1.30) H Estimat Glomerular Filtration Rate 4.8 mL/min (>60) Glucose Level 87 MG/DL (74-106) Calcium Level 7.9 MG/DL (8.5-10.1) L Phosphorus Level 8.6 MG/DL (2.5-4.9) H Magnesium Level 2.5 MG/DL (1.8-2.4) H Total Bilirubin 0.4 MG/DL (0.2-1.0) Aspartate Amino Transf (AST/SGOT) 14 U/L (15-37) L Alanine Aminotransferase (ALT/SGPT) 11 U/L (12-78) L Alkaline Phosphatase 86 U/L (46-116) Total Protein 6.8 G/DL (6.4-8.2) Albumin 2.4 G/DL (3.4-5.0) L Globulin 4.4 g/dL Albumin/Globulin Ratio 0.5 (1.0-2.7) L Random Vancomycin Level 27.8 ug/mL Current Medications Medications (Trade) Dose Ordered Sig/Amarilis Route PRN Reason Start Time Stop Time Status Last Admin Dose Admin Acetaminophen (Tylenol) 650 mg Q4H PRN ORAL Temp >100.5 03/16/20 14:01 04/15/20 14:00 Acetaminophen/ Hydrocodone Bitart ([place] 5/325) 1 tab Q6H PRN ORAL Mild Pain (Pain Scale 1-3) 03/16/20 14:02 03/23/20 14:01 Amlodipine Besylate (Norvasc) 5 mg DAILY ORAL 03/17/20 09:00 04/16/20 08:59 Atorvastatin Calcium (Lipitor) 40 mg BEDTIME ORAL 03/16/20 21:00 06/11/20 20:59 Calcium Acetate (Phoslo) 1,334 mg TIAC ORAL 03/17/20 06:30 06/13/20 11:29 Carvedilol (Coreg) 12.5 mg Q12HR ORAL 03/16/20 21:00 04/15/20 20:59 Cefepime HCl 1 gm/ Dextrose 55 ml @ 110 mls/hr Q24H IVPB 03/16/20 18:00 03/20/20 17:59 03/16/20 17:18 Clonidine HCl (Catapres Tab) 0.1 mg Q6H PRN ORAL For High Blood Pressure 03/16/20 14:01 06/14/20 14:00 Dextrose (Dextrose 50%) 25 ml Q30M PRN IV Hypoglycemia 03/16/20 14:01 06/14/20 14:00 Dextrose (Dextrose 50%) 50 ml Q30M PRN IV Hypoglycemia 03/16/20 14:00 06/11/20 00:59 Epoetin Gustabo (Epoetin Gustabo(ESRD on dialysis)) 4,000 unit MON-WED-FRI SUBQ 03/17/20 21:00 06/13/20 20:59 Furosemide (Lasix) 40 mg DAILY ORAL 03/17/20 09:00 04/12/20 08:59 Insulin Aspart (NovoLOG) BEFORE MEALS AND HS SUBQ 03/16/20 16:30 06/11/20 06:29 03/16/20 16:49 Insulin Detemir (Levemir) 10 units BEDTIME SUBQ 03/16/20 21:00 06/11/20 01:29 Ondansetron HCl (Zofran) 4 mg Q6H PRN IVP Nausea & Vomiting 03/16/20 14:04 04/15/20 14:03 Pregabalin (Lyrica) 75 mg BID ORAL 03/16/20 18:00 04/27/20 17:59 03/16/20 17:18 Tramadol HCl (Ultram) 50 mg Q6H PRN ORAL For Pain (4-10) 03/16/20 14:04 03/23/20 14:03 Vancomycin HCl (Vanco rx to dose) 1 ea DAILY PRN MISC per pharmacy 03/16/20 14:05 04/15/20 14:04 Zolpidem Tartrate (Ambien) 5 mg BEDTIME PRN ORAL Insomnia 03/16/20 14:05 03/23/20 14:04 Kane Shelton MD March 16, 2020 20:18
--- NOTE | 2020-03-16 21:00 | NUR ---
NURSE NOTES: Patient received asleep, no signs of acute distress, on o2 via NC. Skin is intact.R fem kiana cath c/d/i. Left quadrant peritoneal dialysis intact. Scheduled medications given. Pt c/o nausea but refused to get any medications for it. Will continue to monitor.
--- NOTE | 2020-03-16 21:00 | NUR ---
HAND-OFF: Report given to Fabienne Hall.
[2020-03-16] MEDS: Levemir Flexpen SUBQ SCH (21:07)
[2020-03-16] MEDS: Atorvastatin 20mg tab ORAL SCH (21:07)
[2020-03-17] VITALS: BP 144/70
[2020-03-17 04:49] VITALS: BP 155/76
[2020-03-17] MEDS: NovoLOG Insulin Flexpen SUBQ SCH ×4 (05:31→21:00)
[2020-03-17 07:03] LABS: HEMATOCRIT 22.1 % (37.0-47.0); HEMOGLOBIN 7.6 G/DL (12.0-16.0); MEAN CORPUSCULAR VOLUME 89 FL (80-99); PLATELET COUNT 165 K/UL (150-450); RED BLOOD COUNT 2.48 M/UL (4.20-5.40); RED CELL DISTRIBUTION WIDTH 12.3 % (11.6-14.8); WHITE BLOOD COUNT 7.5 K/UL (4.8-10.8)
--- NOTE | 2020-03-17 07:22 | NUR ---
HAND-OFF: Report given to Jennifer MCDONALD. Patient eating breakfast. For HD today.
[2020-03-17 07:24] LABS: ALANINE AMINOTRANSFERASE 10 U/L (12-78); ALBUMIN 2.2 G/DL (3.4-5.0); ALBUMIN/GLOBULIN RATIO 0.5 (1.0-2.7); ALKALINE PHOSPHATASE 81 U/L (46-116); ANION GAP 14 mmol/L (5-15); ASPARTATE AMINO TRANSFERASE 16 U/L (15-37); BILIRUBIN,TOTAL 0.4 MG/DL (0.2-1.0); BLOOD UREA NITROGEN 70 mg/dL (7-18); CALCIUM 8.2 MG/DL (8.5-10.1); CARBON DIOXIDE 27 MMOL/L (21-32); CHLORIDE 95 MMOL/L (98-107); CREATININE 9.6 MG/DL (0.55-1.30); PHOSPHORUS 9.3 MG/DL (2.5-4.9); POTASSIUM 3.8 MMOL/L (3.5-5.1); SODIUM 136 MMOL/L (136-145)
--- NOTE | 2020-03-17 07:24 | NUR ---
NURSE NOTES: Report received from TAMARA Narvaez. Patient received awake in bed having breakfast, A and O x 4, verbal and able to make needs known, denies any pain at this time, no SOB noted, bed in lowest position with alarm on and breaks engaged, on 02 via NC at 2 lpm tolerating well, pt has scheduled dialysis today, IV line on R hand intact and patent, will continue to monitor for changes and proceed with plan of care, call light within reach.
[2020-03-17 08:00] VITALS: BP 142/67
[2020-03-17] MEDS: Lyrica 75mg cap ORAL SCH ×2 (08:44→18:04)
[2020-03-17] MEDS: Furosemide 40mg tab ORAL SCH (08:45)
[2020-03-17] MEDS: Carvedilol 12.5mg tab ORAL SCH ×3 (08:45→21:00)
--- NOTE | 2020-03-17 10:41 | NUR ---
RD ASSESSMENT & RECOMMENDATIONS SEE CARE ACTIVITY FOR COMPLETE ASSESSMENT DAILY ESTIMATED NEEDS: Needs based on ESRD HD 61.4 kg abw 30-35 kcals/kg [id number] total kcals 1.25-1.8 g protein/kg 77-111 g total protein Fluid per MD, on HD/ PD NUTRITION DIAGNOSIS: Increased protein needs r/t ESRD as evidenced by pt on PD, now on HD. PO DIET RECOMMENDATIONS: RENAL DIET + Double protein portions ADDITIONAL RECOMMENDATIONS: 1) W/ elevated BG, rec additional CCHO MED diet to renal diet 2) Obtain a standing scale wt 3) Nephrovite 1 tab daily 4) PM snack- 1 carb/ high protein 5) WC eval for sacral DTPI
--- NOTE | 2020-03-17 10:53 | Nephrology Progress Note ---
Assessment/Plan Plan #ESRD in PD- missed PD due to not being available to help #hyperkalemia #Anemia of CKD #volume overload #possible pneumonia #IDDM #HTN #HLD - assess need for HD daily-HD today - add amlodipine 10mg daily - patient prefers to get back on PD when she goes home- currently in the hospital and not able to help with PD at home - EPO 4k TIW - antibiotics per ID - pulm eval - BG control - ISS - continue coreg 12.5mg BID - continue lasix - continue lantus - check iron panel, ferritin-> pending - check PTH, vit D-> pending - monitor BMP, mag, phos daily time spent 70 min > 50% on care coordination and counseling Subjective ROS Limited/Unobtainable: No Constitutional: Denies: no symptoms, chills, diaphoresis, fever, malaise, weakness, other HEENT: Denies: no symptoms, eye pain, blurred vision, tearing, double vision, ear pain, ear discharge, nose pain, nose congestion, throat pain, throat swelling, mouth pain, mouth swelling, other Genitourinary: Denies: no symptoms, burning, discharge, frequency, flank pain, hematuria, incontinence, pain, urgency, other Neurologic/Psychiatric: Denies: no symptoms, anxiety, depressed, emotional problems, headache, numbness, paresthesia, pre-existing deficit, seizure, tingling, tremors, weakness, other Subjective plan for HD today BP uptrending will increase amlodipine to 10mg daily Objective Objective Last 24 Hour Vital Signs Date Time Temp Pulse Resp B/P (MAP) Pulse Ox O2 Delivery O2 Flow Rate FiO2 03/17/20 09:42 98.1 03/17/20 09:00 Nasal Cannula 2.0 03/17/20 08:46 68 142/67 03/17/20 08:45 68 142/67 03/17/20 08:00 98.1 68 18 142/67 (92) 96 03/17/20 04:49 99.5 67 19 155/76 (102) 97 03/17/20 00:00 98.1 69 19 144/70 (94) 94 03/16/20 21:06 72 150/77 03/16/20 21:00 Nasal Cannula 2.0 03/16/20 20:00 98.2 72 19 150/77 (101) 95 03/16/20 16:00 99.0 71 18 147/57 (87) 97 03/16/20 15:42 70 03/16/20 13:00 104 131/53 (79) 03/16/20 11:44 73 03/16/20 11:30 97.5 70 20 182/78 (112) 98 03/16/20 11:24 182/78 Intake and Output 03/16/20 03/17/20 18:59 06:59 Intake Total 300 ml Output Total 0 ml Balance 300 ml 0 ml Intake Oral 300 ml Output Urine Total 0 ml # Voids 1 Laboratory Tests 03/17/20 05:10: White Blood Count 7.5, Red Blood Count 2.48L, Hemoglobin 7.6L, Hematocrit 22.1L , Mean Corpuscular Volume 89, Mean Corpuscular Hemoglobin 30.7, Mean Corpuscular Hemoglobin Concent 34.5, Red Cell Distribution Width 12.3, Platelet Count 165, Mean Platelet Volume 6.2L, Neutrophils (%) (Auto) , Lymphocytes (%) ( Auto) , Monocytes (%) (Auto) , Eosinophils (%) (Auto) , Basophils (%) (Auto) , Differential Total Cells Counted 100, Neutrophils % (Manual) 80H, Lymphocytes % (Manual) 12L, Monocytes % (Manual) 4, Eosinophils % (Manual) 4H, Basophils % ( Manual) 0, Band Neutrophils 0, Platelet Estimate Adequate, Platelet Morphology Normal, Hypochromasia 1+, Sodium Level 136, Potassium Level 3.8, Chloride Level 95L, Carbon Dioxide Level 27, Anion Gap 14, Blood Urea Nitrogen 70H, Creatinine 9.6H, Estimat Glomerular Filtration Rate 4.2, Glucose Level 95, Calcium Level 8.2L, Phosphorus Level 9.3H, Magnesium Level 2.6H, Total Bilirubin 0.4, Aspartate Amino Transf (AST/SGOT) 16, Alanine Aminotransferase (ALT/SGPT) 10L, Alkaline Phosphatase 81, Total Protein 6.4, Albumin 2.2L, Globulin 4.2, Albumin/ Globulin Ratio 0.5L Height (Feet): 5 Height (Inches): 3.00 Weight (Pounds): 195 Objective General Appearance: WD/WN, no apparent distress Lines, tubes and drains: peripheral HEENT: normocephalic Neck: non-tender Respiratory/Chest: rhonchi - bilaterally Cardiovascular/Chest: normal peripheral pulses Abdomen: normal bowel sounds, non tender, soft, hypoactive bowel sounds, other - PD catheter clean dry intact Extremities: normal range of motion Neurologic: alert, oriented x [address] M.D. March 17, 2020 10:53
--- NOTE | 2020-03-17 11:22 | Pulmonology Progress Note ---
Subjective ROS Limited/Unobtainable: No Interval Events: None new Constitutional: Reports: fatigue; Denies: fever HEENT: Repors: no symptoms Respiratory: Reports: no symptoms Cardiovascular: Reports: no symptoms Gastrointestinal/Abdominal: Denies: nausea, vomiting, diarrhea Genitourinary: Reports: no symptoms Psychiatric: Denies: depression Skin: Denies: rash Musculoskeletal: Denies: pain Allergies: Coded Allergies: No Known Allergies (Unverified , 11/24/15) Objective Last 24 Hour Vital Signs Date Time Temp Pulse Resp B/P (MAP) Pulse Ox O2 Delivery O2 Flow Rate FiO2 03/17/20 09:42 98.1 03/17/20 09:00 Nasal Cannula 2.0 03/17/20 08:46 68 142/67 03/17/20 08:45 68 142/67 03/17/20 08:00 98.1 68 18 142/67 (92) 96 03/17/20 04:49 99.5 67 19 155/76 (102) 97 03/17/20 00:00 98.1 69 19 144/70 (94) 94 03/16/20 21:06 72 150/77 03/16/20 21:00 Nasal Cannula 2.0 03/16/20 20:00 98.2 72 19 150/77 (101) 95 03/16/20 16:00 99.0 71 18 147/57 (87) 97 03/16/20 15:42 70 03/16/20 13:00 104 131/53 (79) 03/16/20 11:44 73 03/16/20 11:30 97.5 70 20 182/78 (112) 98 03/16/20 11:24 182/78 Intake and Output 03/16/20 03/17/20 19:00 07:00 Intake Total 300 ml Output Total 0 ml Balance 300 ml 0 ml Intake Oral 300 ml Output Urine Total 0 ml # Voids 1 General Appearance: no acute distress HEENT: normocephalic Respiratory: chest wall non-tender, lungs clear Cardiovascular: normal peripheral pulses Abdomen: normal bowel sounds Laboratory Tests 03/17/20 05:10: White Blood Count 7.5, Red Blood Count 2.48L, Hemoglobin 7.6L, Hematocrit 22.1L , Mean Corpuscular Volume 89, Mean Corpuscular Hemoglobin 30.7, Mean Corpuscular Hemoglobin Concent 34.5, Red Cell Distribution Width 12.3, Platelet Count 165, Mean Platelet Volume 6.2L, Neutrophils (%) (Auto) , Lymphocytes (%) ( Auto) , Monocytes (%) (Auto) , Eosinophils (%) (Auto) , Basophils (%) (Auto) , Differential Total Cells Counted 100, Neutrophils % (Manual) 80H, Lymphocytes % (Manual) 12L, Monocytes % (Manual) 4, Eosinophils % (Manual) 4H, Basophils % ( Manual) 0, Band Neutrophils 0, Platelet Estimate Adequate, Platelet Morphology Normal, Hypochromasia 1+, Sodium Level 136, Potassium Level 3.8, Chloride Level 95L, Carbon Dioxide Level 27, Anion Gap 14, Blood Urea Nitrogen 70H, Creatinine 9.6H, Estimat Glomerular Filtration Rate 4.2, Glucose Level 95, Calcium Level 8.2L, Phosphorus Level 9.3H, Magnesium Level 2.6H, Total Bilirubin 0.4, Aspartate Amino Transf (AST/SGOT) 16, Alanine Aminotransferase (ALT/SGPT) 10L, Alkaline Phosphatase 81, Total Protein 6.4, Albumin 2.2L, Globulin 4.2, Albumin/ Globulin Ratio 0.5L Current Medications Medications (Trade) Dose Ordered Sig/Amarilis Route PRN Reason Start Time Stop Time Status Last Admin Dose Admin Acetaminophen (Tylenol) 650 mg Q4H PRN ORAL Temp >100.5 03/16/20 14:01 04/15/20 14:00 Acetaminophen/ Hydrocodone Bitart ([place] 5/325) 1 tab Q6H PRN ORAL Mild Pain (Pain Scale 1-3) 03/16/20 14:02 03/23/20 14:01 Amlodipine Besylate (Norvasc) 5 mg DAILY ORAL 03/17/20 09:00 04/16/20 08:59 Atorvastatin Calcium (Lipitor) 40 mg BEDTIME ORAL 03/16/20 21:00 06/11/20 20:59 03/16/20 21:07 Calcium Acetate (Phoslo) 1,334 mg TIAC ORAL 03/17/20 06:30 06/13/20 11:29 03/17/20 05:31 Carvedilol (Coreg) 12.5 mg Q12HR ORAL 03/16/20 21:00 04/15/20 20:59 03/16/20 21:06 Cefepime HCl 1 gm/ Dextrose 55 ml @ 110 mls/hr Q24H IVPB 03/16/20 18:00 03/20/20 17:59 03/16/20 17:18 Clonidine HCl (Catapres Tab) 0.1 mg Q6H PRN ORAL For High Blood Pressure 03/16/20 14:01 06/14/20 14:00 Dextrose (Dextrose 50%) 25 ml Q30M PRN IV Hypoglycemia 03/16/20 14:01 06/14/20 14:00 Dextrose (Dextrose 50%) 50 ml Q30M PRN IV Hypoglycemia 03/16/20 14:00 06/11/20 00:59 Epoetin Gustabo (Epoetin Gustabo(ESRD on dialysis)) 4,000 unit SUN-SUN-SUN SUBQ 03/17/20 21:00 06/13/20 20:59 Furosemide (Lasix) 40 mg DAILY ORAL 03/17/20 09:00 04/12/20 08:59 03/17/20 08:45 Insulin Aspart (NovoLOG) BEFORE MEALS AND HS SUBQ 03/16/20 16:30 06/11/20 06:29 03/16/20 21:07 Insulin Detemir (Levemir) 10 units BEDTIME SUBQ 03/16/20 21:00 06/11/20 01:29 03/16/20 21:07 Ondansetron HCl (Zofran) 4 mg Q6H PRN IVP Nausea & Vomiting 03/16/20 14:04 04/15/20 14:03 Pregabalin (Lyrica) 75 mg BID ORAL 03/16/20 18:00 04/27/20 17:59 03/17/20 08:44 Tramadol HCl (Ultram) 50 mg Q6H PRN ORAL For Pain (4-10) 03/16/20 14:04 03/23/20 14:03 Vancomycin HCl (Vanco rx to dose) 1 ea DAILY PRN MISC per pharmacy 03/16/20 14:05 04/15/20 14:04 Zolpidem Tartrate (Ambien) 5 mg BEDTIME PRN ORAL Insomnia 03/16/20 14:05 03/23/20 14:04 Assessment/Plan Assessment/Plan IMPRESSION: 1. Large right effusion. 2. Right lung pneumonia. 3. Hyperkalemia. 4. Chronic renal failure on PD. DISCUSSION: Dialysis per renal. Continue broad-spectrum antibiotics, oxygen. Pulmonary hygiene. I will follow carefully. Saturating 92-96% on 2L/min O2 Jakob Tracy M.D. Jakob Tracy MD March 17, 2020 11:22
--- NOTE | 2020-03-17 11:30 | NUR ---
NURSE NOTES: patient had HD with VIP. 4L out. vs stable. 109/52/65. Catheter on femoral intact.
--- NOTE | 2020-03-17 11:44 | Diagnostic Imaging Report ---
Indication: Shortness of breath Technique: One view of the chest Comparison: 03/15/2020 Findings: Right-sided pleural effusion and diffuse right lung infiltrates are probably unchanged allowing for differences in exposure technique. The heart remains enlarged. There is left chest unifocal AICD. There is a small left pleural effusion again demonstrated. Findings are overall unchanged Impression: Unchanged, over 2 days, findings as above.
[2020-03-17 12:00] VITALS: BP 153/77
--- NOTE | 2020-03-17 14:56 | NUR ---
CASE MANAGEMENT:REVIEW SI;PNEUMONIA. UTI. HYPERKALEMIA. ESRD ON PD AT HOME. 99.5 72 19 155/76 94% 2L NC H/H 7.6/22.1 CL 95 BUN 70 CR 9.6 CA 8.2 MG 2.6 ALB 2.2 IS;LASIX PO QD NORVASC PO QD PHOSLO PO TIAC COREG PO BID CEFEPIME IV QD CXR~Unchanged, over 2 days TRANSFERRED FROM TELE TO MED SURG @ 5311 ON 03/16/20 MED SURG STATUS DCP;HOME WITH HOME HEALTH
[2020-03-17 16:00] VITALS: BP 155/77
--- NOTE | 2020-03-17 16:59 | Internal Med Progress Note ---
Subjective Date of Service: March 17, 2020 Physician Name Emilie Davis Attending Physician Poli St M.D. Current Medications Medications (Trade) Dose Ordered Sig/Amarilis Route PRN Reason Start Time Stop Time Status Last Admin Dose Admin Acetaminophen (Tylenol) 650 mg Q4H PRN ORAL Temp >100.5 03/16/20 14:01 04/15/20 14:00 Acetaminophen/ Hydrocodone Bitart ([place] 5/325) 1 tab Q6H PRN ORAL Mild Pain (Pain Scale 1-3) 03/16/20 14:02 03/23/20 14:01 Amlodipine Besylate (Norvasc) 5 mg DAILY ORAL 03/17/20 09:00 04/16/20 08:59 Atorvastatin Calcium (Lipitor) 40 mg BEDTIME ORAL 03/16/20 21:00 06/11/20 20:59 03/16/20 21:07 Calcium Acetate (Phoslo) 1,334 mg TIAC ORAL 03/17/20 06:30 06/13/20 11:29 03/17/20 11:41 Carvedilol (Coreg) 12.5 mg Q12HR ORAL 03/16/20 21:00 04/15/20 20:59 03/16/20 21:06 Cefepime HCl 1 gm/ Dextrose 55 ml @ 110 mls/hr Q24H IVPB 03/16/20 18:00 03/20/20 17:59 03/16/20 17:18 Clonidine HCl (Catapres Tab) 0.1 mg Q6H PRN ORAL For High Blood Pressure 03/16/20 14:01 06/14/20 14:00 Dextrose (Dextrose 50%) 25 ml Q30M PRN IV Hypoglycemia 03/16/20 14:01 06/14/20 14:00 Dextrose (Dextrose 50%) 50 ml Q30M PRN IV Hypoglycemia 03/16/20 14:00 06/11/20 00:59 Epoetin Gustabo (Epoetin Gustabo(ESRD on dialysis)) 4,000 unit SUN-WED-SUN SUBQ 03/17/20 21:00 06/13/20 20:59 Furosemide (Lasix) 40 mg DAILY ORAL 03/17/20 09:00 04/12/20 08:59 03/17/20 08:45 Insulin Aspart (NovoLOG) BEFORE MEALS AND HS SUBQ 03/16/20 16:30 06/11/20 06:29 03/16/20 21:07 Insulin Detemir (Levemir) 10 units BEDTIME SUBQ 03/16/20 21:00 06/11/20 01:29 03/16/20 21:07 Ondansetron HCl (Zofran) 4 mg Q6H PRN IVP Nausea & Vomiting 03/16/20 14:04 04/15/20 14:03 Pregabalin (Lyrica) 75 mg BID ORAL 03/16/20 18:00 04/27/20 17:59 03/17/20 08:44 Tramadol HCl (Ultram) 50 mg Q6H PRN ORAL For Pain (4-10) 03/16/20 14:04 03/23/20 14:03 Vancomycin HCl (Vanco rx to dose) 1 ea DAILY PRN MISC per pharmacy 03/16/20 14:05 04/15/20 14:04 Zolpidem Tartrate (Ambien) 5 mg BEDTIME PRN ORAL Insomnia 03/16/20 14:05 03/23/20 14:04 Allergies: Coded Allergies: No Known Allergies (Unverified , 11/24/15) Subjective HGB low today but above 7; patient continues to c/o intermittent headaches. HD today. Continue IV AB. Objective Last Vital Signs Date Time Temp Pulse Resp B/P (MAP) Pulse Ox O2 Delivery O2 Flow Rate FiO2 03/17/20 16:00 100.0 77 17 155/77 (103) 94 03/17/20 09:00 Nasal Cannula 2.0 Laboratory Tests Test 03/17/20 05:10 White Blood Count 7.5 K/UL (4.8-10.8) Red Blood Count 2.48 M/UL (4.20-5.40) L Hemoglobin 7.6 G/DL (12.0-16.0) L Hematocrit 22.1 % (37.0-47.0) L Mean Corpuscular Volume 89 FL (80-99) Mean Corpuscular Hemoglobin 30.7 PG (27.0-31.0) Mean Corpuscular Hemoglobin Concent 34.5 G/DL (32.0-36.0) Red Cell Distribution Width 12.3 % (11.6-14.8) Platelet Count 165 K/UL (150-450) Mean Platelet Volume 6.2 FL (6.5-10.1) L Neutrophils (%) (Auto) % (45.0-75.0) Lymphocytes (%) (Auto) % (20.0-45.0) Monocytes (%) (Auto) % (1.0-10.0) Eosinophils (%) (Auto) % (0.0-3.0) Basophils (%) (Auto) % (0.0-2.0) Differential Total Cells Counted 100 Neutrophils % (Manual) 80 % (45-75) H Lymphocytes % (Manual) 12 % (20-45) L Monocytes % (Manual) 4 % (1-10) Eosinophils % (Manual) 4 % (0-3) H Basophils % (Manual) 0 % (0-2) Band Neutrophils 0 % (0-8) Platelet Estimate Adequate Platelet Morphology Normal Hypochromasia 1+ Sodium Level 136 MMOL/L (136-145) Potassium Level 3.8 MMOL/L (3.5-5.1) Chloride Level 95 MMOL/L (98-107) L Carbon Dioxide Level 27 MMOL/L (21-32) Anion Gap 14 mmol/L (5-15) Blood Urea Nitrogen 70 mg/dL (7-18) H Creatinine 9.6 MG/DL (0.55-1.30) H Estimat Glomerular Filtration Rate 4.2 mL/min (>60) Glucose Level 95 MG/DL (74-106) Calcium Level 8.2 MG/DL (8.5-10.1) L Phosphorus Level 9.3 MG/DL (2.5-4.9) H Magnesium Level 2.6 MG/DL (1.8-2.4) H Total Bilirubin 0.4 MG/DL (0.2-1.0) Aspartate Amino Transf (AST/SGOT) 16 U/L (15-37) Alanine Aminotransferase (ALT/SGPT) 10 U/L (12-78) L Alkaline Phosphatase 81 U/L (46-116) Total Protein 6.4 G/DL (6.4-8.2) Albumin 2.2 G/DL (3.4-5.0) L Globulin 4.2 g/dL Albumin/Globulin Ratio 0.5 (1.0-2.7) L Intake and Output 03/16/20 03/17/20 19:00 07:00 Intake Total 300 ml Output Total 0 ml Balance 300 ml 0 ml Intake Oral 300 ml Output Urine Total 0 ml # Voids 1 Objective General Appearance: WD/WN, no apparent distress Cardiovascular: normal rate, regular rhythm, regularly irregular, other - Eric cath in right femoral vein Respiratory/Chest: lungs clear, normal breath sounds, no respiratory distress Abdomen: non tender, soft, other - PD cath noted Extremities: normal range of motion 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 Assessment/Plan Assessment/Plan Assessment #ESRD on PD; malfunctioning PD cath, acutely requiring HD access s/p placement w / associated hyperkalemia presenting at >6 #HCAP vs Pulmonary Edema; CXR cannot rule out underlying lesion--> COVID negative #Sepsis--> multifactoral 2/2 UTI + CAP +/- PD cath infection, pending paz cultures, peritoneal fluid studies if ID deems appropriate #Blood transfusion requiring anemia #Uremia/Metabolic Acidosis -Resolved #HTN #DMII Plan Consultants include surgery s/p HD access, Cardio, Nephro Continue Vancomycin and Cefepime IV, Paz Cx Continue HD as schedule Transfuse PRBC to maintain above 7 as needed, SOBT pending Coreg and Atorvastatin, Lasix PO; adjust prn, BP to improve w/ aggressive HD Weight based insulin dosing, goal blood sugar less then 180 while inpatient, Levemir QHS Obtain and Reconcile home meds -Complete Maeve/1800 ADA Diet DVT ppx 03/14: It seems patient would prefer to be on PD moving forward. Will continue to monitor in house to see if this is viable. Appreciate Consultants. Continue AB and await cultures and COVID. Repeat CXR for am to assess improvement of effusion and pulmonary edema. 03/15: Transfuse PRBC, increase Coreg, SOBT. Continue AB. 03/16: Continue present care; HD tomorrow. 03/17: HD, monitor HGB Emilie Davis D.O. March 17, 2020 16:59
--- NOTE | 2020-03-17 17:45 | Surgery Progress Note ---
Surgery Progress Note Subjective Procedure Performed Right femoral temporary hemodialysis catheter insertion Symptoms: improved Objective Last 24 Hour Vital Signs Date Time Temp Pulse Resp B/P (MAP) Pulse Ox O2 Delivery O2 Flow Rate FiO2 03/17/20 16:00 100.0 77 17 155/77 (103) 94 03/17/20 12:00 98.1 71 18 153/77 (102) 94 03/17/20 09:42 98.1 03/17/20 09:00 Nasal Cannula 2.0 03/17/20 08:46 68 142/67 03/17/20 08:45 68 142/67 03/17/20 08:00 98.1 68 18 142/67 (92) 96 03/17/20 04:49 99.5 67 19 155/76 (102) 97 03/17/20 00:00 98.1 69 19 144/70 (94) 94 03/16/20 21:06 72 150/77 03/16/20 21:00 Nasal Cannula 2.0 03/16/20 20:00 98.2 72 19 150/77 (101) 95 I&O Intake and Output 03/16/20 03/17/20 19:00 07:00 Intake Total 300 ml Output Total 0 ml Balance 300 ml 0 ml Intake Oral 300 ml Output Urine Total 0 ml # Voids 1 Dressing: dry Wound: clean Cardiovascular: RSR Respiratory: clear Abdomen: soft, non-tender, present bowel sounds Extremities: no edema, no tenderness, no cyanosis Laboratory Tests Test 03/17/20 05:10 White Blood Count 7.5 K/UL (4.8-10.8) Red Blood Count 2.48 M/UL (4.20-5.40) L Hemoglobin 7.6 G/DL (12.0-16.0) L Hematocrit 22.1 % (37.0-47.0) L Mean Corpuscular Volume 89 FL (80-99) Mean Corpuscular Hemoglobin 30.7 PG (27.0-31.0) Mean Corpuscular Hemoglobin Concent 34.5 G/DL (32.0-36.0) Red Cell Distribution Width 12.3 % (11.6-14.8) Platelet Count 165 K/UL (150-450) Mean Platelet Volume 6.2 FL (6.5-10.1) L Neutrophils (%) (Auto) % (45.0-75.0) Lymphocytes (%) (Auto) % (20.0-45.0) Monocytes (%) (Auto) % (1.0-10.0) Eosinophils (%) (Auto) % (0.0-3.0) Basophils (%) (Auto) % (0.0-2.0) Differential Total Cells Counted 100 Neutrophils % (Manual) 80 % (45-75) H Lymphocytes % (Manual) 12 % (20-45) L Monocytes % (Manual) 4 % (1-10) Eosinophils % (Manual) 4 % (0-3) H Basophils % (Manual) 0 % (0-2) Band Neutrophils 0 % (0-8) Platelet Estimate Adequate Platelet Morphology Normal Hypochromasia 1+ Sodium Level 136 MMOL/L (136-145) Potassium Level 3.8 MMOL/L (3.5-5.1) Chloride Level 95 MMOL/L (98-107) L Carbon Dioxide Level 27 MMOL/L (21-32) Anion Gap 14 mmol/L (5-15) Blood Urea Nitrogen 70 mg/dL (7-18) H Creatinine 9.6 MG/DL (0.55-1.30) H Estimat Glomerular Filtration Rate 4.2 mL/min (>60) Glucose Level 95 MG/DL (74-106) Calcium Level 8.2 MG/DL (8.5-10.1) L Phosphorus Level 9.3 MG/DL (2.5-4.9) H Magnesium Level 2.6 MG/DL (1.8-2.4) H Total Bilirubin 0.4 MG/DL (0.2-1.0) Aspartate Amino Transf (AST/SGOT) 16 U/L (15-37) Alanine Aminotransferase (ALT/SGPT) 10 U/L (12-78) L Alkaline Phosphatase 81 U/L (46-116) Total Protein 6.4 G/DL (6.4-8.2) Albumin 2.2 G/DL (3.4-5.0) L Globulin 4.2 g/dL Albumin/Globulin Ratio 0.5 (1.0-2.7) L Plan Problems: (1) Anemia (2) Pleural effusion (3) UTI (urinary tract infection) (4) Chronic renal failure (5) Pneumonia (6) Dehydration (7) Hyperkalemia Assessment & Plan: Leukocytosis hyperkalemia with medical management since seen last night to the course of today patient's potassium is only gone from 6.7 -6.5 and will likely worsen her given condition. She is symptomatic ill- appearing and will require hemodialysis. Does not have access hemodialysis access indicated recommended. Risk benefits alternative discussed patient in detail line placed at bedside. Coags noted labs noted patient chart reviewed in detail We will monitor overnight and place right femoral dialysis line. Please see procedure note. Late entry as patient seen prior HD as per nephrology Okay for diet from surgical standpoint We will follow with recommendations Thank you for let me participate in patient's care cont HD will hopefully be able to resume PD upon d/c (8) Type 2 diabetes mellitus, uncontrolled (9) Elevated brain natriuretic peptide (BNP) level (10) Azotemia (11) Bronchitis (12) Vomiting (13) Intractable nausea and vomiting (14) Asthma (15) Chest pain, rule out acute myocardial infarction (16) Acute dyspnea (17) Functional quadriplegia Landon Elias March 17, 2020 17:45
[2020-03-17] MEDS: Cefepime HCl 1 GM in D5W 55 ML IVPB SCH (18:04)
--- NOTE | 2020-03-17 19:29 | NUR ---
HAND-OFF: Report given to TAMARA Ingram. Addendum: 03/17/20 at 1934 by Luba Miguel RN Correction: Report given to TAMARA Ingram by RN. [facility] for 03/17/20 7a-7p
--- NOTE | 2020-03-17 19:30 | NUR ---
NURSE NOTES: Received awake awake,A&Ox 4, and verbal. No sob,cough,fever and pain. Pt has dialysis today they took out 4L. Bed in the lowest position,locked and alarm on. Call light within reach.
[2020-03-17 20:00] VITALS: BP 145/81
[2020-03-17] MEDS: Atorvastatin 20mg tab ORAL SCH ×2 (20:57→21:00)
[2020-03-17] MEDS ORDERED: Epoetin Alfa-EPBX(ESRD on dialysis)4000 units/ml vial SUBQ SCH (21:00)
[2020-03-17] MEDS: Levemir Flexpen SUBQ SCH (21:24)
--- NOTE | 2020-03-17 21:34 | Cardiology Progress Note ---
Assessment/Plan Status: stable Assessment/Plan Assessment/Plan Status: stable Assessment/Plan: Assessment ESRD Hyperkalemia Volume overload r/o COVID PNA IDDM HTN HLD PLAN: -Maintain Dialysis -Serial CXR - persistent right pleural effusion: CONSIDER THORACENTESIS albeit patient stable on room air -serial H/H, transfused 1 unit PRBC thus far, consider additional unit, EPOgen per nephrology, Add MVI with iron supplementatio -Continue coreg - dose increased and tolerating -Continue lasix -Monitor on telemetry given electrolyte abnormalities -Echocardiogram pending -Outpatient stress test -Continue Norvasc 10 mg for stage 2 hypertension -DASH diet -Dispo planning, no further inpatient cardiac plans, follow up outpatient Subjective Cardiovascular: Reports: no symptoms Respiratory: Reports: no symptoms Gastrointestinal/Abdominal: Reports: no symptoms Genitourinary: Reports: no symptoms Subjective No acute events, tolerated HD today with 4 liters removed, SOB improved, no fevers ,no chest pain, no arrhythmias Blood pressures remain elevated, HgB remains 7, no bleeding Objective Last 24 Hour Vital Signs Date Time Temp Pulse Resp B/P (MAP) Pulse Ox O2 Delivery O2 Flow Rate FiO2 03/17/20 18:38 100.0 03/17/20 16:00 100.0 77 17 155/77 (103) 94 03/17/20 12:00 98.1 71 18 153/77 (102) 94 03/17/20 09:00 Nasal Cannula 2.0 03/17/20 08:46 68 142/67 03/17/20 08:45 68 142/67 03/17/20 08:00 98.1 68 18 142/67 (92) 96 03/17/20 04:49 99.5 67 19 155/76 (102) 97 03/17/20 00:00 98.1 69 19 144/70 (94) 94 General Appearance: no apparent distress, alert EENT: PERRL/EOMI, normal ENT inspection, TMs normal, pharynx normal Neck: non-tender, normal alignment, supple, normal inspection Rhythm: NSR Cardiovascular: normal peripheral pulses, normal rate, regular rhythm Respiratory/Chest: chest wall non-tender, accessory muscle use, crackles/rales , rhonchi - bilaterally Abdomen: normal bowel sounds, non tender, soft, no organomegaly, no mass Extremities: normal range of motion, non-tender, normal inspection, no calf tenderness, no swelling 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, no motor/sensory deficits Intake and Output 03/16/20 03/17/20 19:00 07:00 Intake Total 300 ml Output Total 0 ml Balance 300 ml 0 ml Intake Oral 300 ml Output Urine Total 0 ml # Voids 1 Laboratory Tests Test 03/17/20 05:10 White Blood Count 7.5 K/UL (4.8-10.8) Red Blood Count 2.48 M/UL (4.20-5.40) L Hemoglobin 7.6 G/DL (12.0-16.0) L Hematocrit 22.1 % (37.0-47.0) L Mean Corpuscular Volume 89 FL (80-99) Mean Corpuscular Hemoglobin 30.7 PG (27.0-31.0) Mean Corpuscular Hemoglobin Concent 34.5 G/DL (32.0-36.0) Red Cell Distribution Width 12.3 % (11.6-14.8) Platelet Count 165 K/UL (150-450) Mean Platelet Volume 6.2 FL (6.5-10.1) L Neutrophils (%) (Auto) % (45.0-75.0) Lymphocytes (%) (Auto) % (20.0-45.0) Monocytes (%) (Auto) % (1.0-10.0) Eosinophils (%) (Auto) % (0.0-3.0) Basophils (%) (Auto) % (0.0-2.0) Differential Total Cells Counted 100 Neutrophils % (Manual) 80 % (45-75) H Lymphocytes % (Manual) 12 % (20-45) L Monocytes % (Manual) 4 % (1-10) Eosinophils % (Manual) 4 % (0-3) H Basophils % (Manual) 0 % (0-2) Band Neutrophils 0 % (0-8) Platelet Estimate Adequate Platelet Morphology Normal Hypochromasia 1+ Sodium Level 136 MMOL/L (136-145) Potassium Level 3.8 MMOL/L (3.5-5.1) Chloride Level 95 MMOL/L (98-107) L Carbon Dioxide Level 27 MMOL/L (21-32) Anion Gap 14 mmol/L (5-15) Blood Urea Nitrogen 70 mg/dL (7-18) H Creatinine 9.6 MG/DL (0.55-1.30) H Estimat Glomerular Filtration Rate 4.2 mL/min (>60) Glucose Level 95 MG/DL (74-106) Calcium Level 8.2 MG/DL (8.5-10.1) L Phosphorus Level 9.3 MG/DL (2.5-4.9) H Magnesium Level 2.6 MG/DL (1.8-2.4) H Total Bilirubin 0.4 MG/DL (0.2-1.0) Aspartate Amino Transf (AST/SGOT) 16 U/L (15-37) Alanine Aminotransferase (ALT/SGPT) 10 U/L (12-78) L Alkaline Phosphatase 81 U/L (46-116) Total Protein 6.4 G/DL (6.4-8.2) Albumin 2.2 G/DL (3.4-5.0) L Globulin 4.2 g/dL Albumin/Globulin Ratio 0.5 (1.0-2.7) L Roberto Bay MD March 17, 2020 21:34
[2020-03-18 04:00] VITALS: BP 168/71
[2020-03-18 06:19] LABS: BASOPHILS % (AUTO) 1.5 % (0.0-2.0); EOSINOPHILS % (AUTO) 4.6 % (0.0-3.0); HEMATOCRIT 23.9 % (37.0-47.0); HEMOGLOBIN 8.1 G/DL (12.0-16.0); LYMPHOCYTES % (AUTO) 16.8 % (20.0-45.0); MEAN CORPUSCULAR VOLUME 90 FL (80-99); MONOCYTES % (AUTO) 7.5 % (1.0-10.0); NEUTROPHILS % (AUTO) 69.6 % (45.0-75.0); PLATELET COUNT 203 K/UL (150-450); RED BLOOD COUNT 2.64 M/UL (4.20-5.40); RED CELL DISTRIBUTION WIDTH 13.1 % (11.6-14.8); WHITE BLOOD COUNT 7.7 K/UL (4.8-10.8)
[2020-03-18] MEDS: NovoLOG Insulin Flexpen SUBQ SCH (06:30)
[2020-03-18 06:56] LABS: PHOSPHORUS 7.8 MG/DL (2.5-4.9)
[2020-03-18 07:02] LABS: ALANINE AMINOTRANSFERASE 13 U/L (12-78); ALBUMIN 2.2 G/DL (3.4-5.0); ALBUMIN/GLOBULIN RATIO 0.5 (1.0-2.7); ALKALINE PHOSPHATASE 88 U/L (46-116); ANION GAP 12 mmol/L (5-15); ASPARTATE AMINO TRANSFERASE 19 U/L (15-37); BILIRUBIN,TOTAL 0.3 MG/DL (0.2-1.0); BLOOD UREA NITROGEN 55 mg/dL (7-18); CALCIUM 7.8 MG/DL (8.5-10.1); CARBON DIOXIDE 28 MMOL/L (21-32); CHLORIDE 99 MMOL/L (98-107); CREATININE 8.2 MG/DL (0.55-1.30); POTASSIUM 3.9 MMOL/L (3.5-5.1); SODIUM 139 MMOL/L (136-145)
--- NOTE | 2020-03-18 07:25 | NUR ---
HAND-OFF: Report given to Fabienne Louise.
[2020-03-18 08:00] VITALS: BP 164/75
[2020-03-18] MEDS: Furosemide 40mg tab ORAL SCH (08:28)
[2020-03-18 08:29] VITALS: BP 164/75
[2020-03-18] MEDS: Carvedilol 12.5mg tab ORAL SCH (08:29)
[2020-03-18] MEDS: Lyrica 75mg cap ORAL SCH (08:29)
--- NOTE | 2020-03-18 10:35 | Nephrology Progress Note ---
Assessment/Plan Plan #ESRD in PD- missed PD due to not being available to help #hyperkalemia #Anemia of CKD #volume overload #possible pneumonia #IDDM #HTN #HLD - s/p HD yesterday - add amlodipine 10mg daily - DC home today- plan to resume PD - remove amari - EPO 4k TIW - antibiotics per ID - pulm eval - BG control - ISS - continue coreg 12.5mg BID - continue lasix - continue lantus - check iron panel, ferritin-> pending - check PTH, vit D-> pending - monitor BMP, mag, phos daily time spent 70 min > 50% on care coordination and counseling Subjective ROS Limited/Unobtainable: No Constitutional: Denies: no symptoms, chills, diaphoresis, fever, malaise, weakness, other HEENT: Denies: no symptoms, eye pain, blurred vision, tearing, double vision, ear pain, ear discharge, nose pain, nose congestion, throat pain, throat swelling, mouth pain, mouth swelling, other Genitourinary: Denies: no symptoms, burning, discharge, frequency, flank pain, hematuria, incontinence, pain, urgency, other Neurologic/Psychiatric: Denies: no symptoms, anxiety, depressed, emotional problems, headache, numbness, paresthesia, pre-existing deficit, seizure, tingling, tremors, weakness, other Subjective s/p HD yesterday will increase amlodipine to 10mg daily Objective Objective Last 24 Hour Vital Signs Date Time Temp Pulse Resp B/P (MAP) Pulse Ox O2 Delivery O2 Flow Rate FiO2 03/18/20 09:00 Nasal Cannula 2.0 03/18/20 08:29 74 164/75 03/18/20 08:28 74 164/75 03/18/20 08:00 97.9 74 19 164/75 (104) 94 03/18/20 04:00 97.5 67 18 168/71 (103) 95 03/17/20 21:00 Nasal Cannula 2.0 03/17/20 20:00 98.1 76 18 145/81 (102) 95 03/17/20 18:38 100.0 03/17/20 16:00 100.0 77 17 155/77 (103) 94 03/17/20 12:00 98.1 71 18 153/77 (102) 94 Intake and Output 03/17/20 03/18/20 18:59 06:59 Intake Total 300 ml 250 ml Output Total 4000 ml Balance -3700 ml 250 ml Intake Oral 300 ml 250 ml Hemodialysis UF 4000 ml # Voids 1 Laboratory Tests 03/18/20 05:09: White Blood Count 7.7, Red Blood Count 2.64L, Hemoglobin 8.1L, Hematocrit 23.9L , Mean Corpuscular Volume 90, Mean Corpuscular Hemoglobin 30.7, Mean Corpuscular Hemoglobin Concent 34.0, Red Cell Distribution Width 13.1, Platelet Count 203, Mean Platelet Volume 6.8, Neutrophils (%) (Auto) 69.6, Lymphocytes (% ) (Auto) 16.8L, Monocytes (%) (Auto) 7.5, Eosinophils (%) (Auto) 4.6H, Basophils (%) (Auto) 1.5, Sodium Level 139, Potassium Level 3.9, Chloride Level 99, Carbon Dioxide Level 28, Anion Gap 12, Blood Urea Nitrogen 55H, Creatinine 8.2H, Estimat Glomerular Filtration Rate 5.0, Glucose Level 85, Calcium Level 7.8L, Phosphorus Level 7.8H, Magnesium Level 2.6H, Total Bilirubin 0.3, Aspartate Amino Transf (AST/SGOT) 19, Alanine Aminotransferase (ALT/SGPT) 13, Alkaline Phosphatase 88, Total Protein 6.6, Albumin 2.2L, Globulin 4.4, Albumin/ Globulin Ratio 0.5L, Random Vancomycin Level 22.2 Height (Feet): 5 Height (Inches): 3.00 Weight (Pounds): 195 Objective General Appearance: WD/WN, no apparent distress Lines, tubes and drains: peripheral HEENT: normocephalic Neck: non-tender Respiratory/Chest: rhonchi - bilaterally Cardiovascular/Chest: normal peripheral pulses Abdomen: normal bowel sounds, non tender, soft, hypoactive bowel sounds, other - PD catheter clean dry intact Extremities: normal range of motion Neurologic: alert, oriented x [address] M.D. March 18, 2020 10:35
--- NOTE | 2020-03-18 10:38 | Surgery Progress Note ---
Surgery Progress Note Subjective Procedure Performed Right femoral temporary hemodialysis catheter insertion Additional Comments doing much better wants to go home HD today plan to resume PD when d/c will await nephro decision on dc plan Objective Last 24 Hour Vital Signs Date Time Temp Pulse Resp B/P (MAP) Pulse Ox O2 Delivery O2 Flow Rate FiO2 03/18/20 09:00 Nasal Cannula 2.0 03/18/20 08:29 74 164/75 03/18/20 08:28 74 164/75 03/18/20 08:00 97.9 74 19 164/75 (104) 94 03/18/20 04:00 97.5 67 18 168/71 (103) 95 03/17/20 21:00 Nasal Cannula 2.0 03/17/20 20:00 98.1 76 18 145/81 (102) 95 03/17/20 18:38 100.0 03/17/20 16:00 100.0 77 17 155/77 (103) 94 03/17/20 12:00 98.1 71 18 153/77 (102) 94 I&O Intake and Output 03/17/20 03/18/20 19:00 07:00 Intake Total 300 ml 250 ml Output Total 4000 ml Balance -3700 ml 250 ml Intake Oral 300 ml 250 ml Hemodialysis UF 4000 ml # Voids 1 Dressing: other Wound: other Drains: other Cardiovascular: RSR Respiratory: decreased breath sounds Abdomen: soft, non-tender, present bowel sounds Extremities: no edema, no tenderness, no cyanosis Laboratory Tests Test 03/18/20 05:09 White Blood Count 7.7 K/UL (4.8-10.8) Red Blood Count 2.64 M/UL (4.20-5.40) L Hemoglobin 8.1 G/DL (12.0-16.0) L Hematocrit 23.9 % (37.0-47.0) L Mean Corpuscular Volume 90 FL (80-99) Mean Corpuscular Hemoglobin 30.7 PG (27.0-31.0) Mean Corpuscular Hemoglobin Concent 34.0 G/DL (32.0-36.0) Red Cell Distribution Width 13.1 % (11.6-14.8) Platelet Count 203 K/UL (150-450) Mean Platelet Volume 6.8 FL (6.5-10.1) Neutrophils (%) (Auto) 69.6 % (45.0-75.0) Lymphocytes (%) (Auto) 16.8 % (20.0-45.0) L Monocytes (%) (Auto) 7.5 % (1.0-10.0) Eosinophils (%) (Auto) 4.6 % (0.0-3.0) H Basophils (%) (Auto) 1.5 % (0.0-2.0) Sodium Level 139 MMOL/L (136-145) Potassium Level 3.9 MMOL/L (3.5-5.1) Chloride Level 99 MMOL/L (98-107) Carbon Dioxide Level 28 MMOL/L (21-32) Anion Gap 12 mmol/L (5-15) Blood Urea Nitrogen 55 mg/dL (7-18) H Creatinine 8.2 MG/DL (0.55-1.30) H Estimat Glomerular Filtration Rate 5.0 mL/min (>60) Glucose Level 85 MG/DL (74-106) Calcium Level 7.8 MG/DL (8.5-10.1) L Phosphorus Level 7.8 MG/DL (2.5-4.9) H Magnesium Level 2.6 MG/DL (1.8-2.4) H Total Bilirubin 0.3 MG/DL (0.2-1.0) Aspartate Amino Transf (AST/SGOT) 19 U/L (15-37) Alanine Aminotransferase (ALT/SGPT) 13 U/L (12-78) Alkaline Phosphatase 88 U/L (46-116) Total Protein 6.6 G/DL (6.4-8.2) Albumin 2.2 G/DL (3.4-5.0) L Globulin 4.4 g/dL Albumin/Globulin Ratio 0.5 (1.0-2.7) L Random Vancomycin Level 22.2 ug/mL Plan Problems: (1) Anemia (2) Pleural effusion (3) UTI (urinary tract infection) (4) Chronic renal failure (5) Pneumonia (6) Dehydration (7) Hyperkalemia Assessment & Plan: Leukocytosis hyperkalemia with medical management since seen last night to the course of today patient's potassium is only gone from 6.7 -6.5 and will likely worsen her given condition. She is symptomatic ill- appearing and will require hemodialysis. Does not have access hemodialysis access indicated recommended. Risk benefits alternative discussed patient in detail line placed at bedside. Coags noted labs noted patient chart reviewed in detail We will monitor overnight and place right femoral dialysis line. Please see procedure note. Late entry as patient seen prior HD as per nephrology Okay for diet from surgical standpoint We will follow with recommendations Thank you for let me participate in patient's care cont HD will hopefully be able to resume PD upon d/c (8) Type 2 diabetes mellitus, uncontrolled (9) Elevated brain natriuretic peptide (BNP) level (10) Azotemia (11) Bronchitis (12) Vomiting (13) Intractable nausea and vomiting (14) Asthma (15) Chest pain, rule out acute myocardial infarction (16) Acute dyspnea (17) Functional quadriplegia Landon Elias March 18, 2020 10:38
--- NOTE | 2020-03-18 11:30 | Operative Note - PDOC ---
Operative Note Operative Note Date of Operation/Procedure: March 18, 2020 Pre-op Diagnosis: Hyperkalemia renal insufficiency sepsis Procedure: Right femoral temporary hemodialysis catheter removal Post-op Diagnosis: same as pre-op Surgeon: Landon Elias MD Specimen: none Condition: stable Estimated Blood Loss: minimal Drains: none Implant(s) used?: No Indications for Procedure patient demanding to leave AMA non compliant with care AAOX4 and appropriate to make her own decisions her is here downstairs to pick her up line needs to be removed prior to leaving AMA Description of Procedure patient made comfortable in supine position. rigtht groin dressings removed. site cleaned. sutures cut. line removed. pressure held for 20 mins until hemostasis. dressings applied. patient instructed to lay flat for 1hr and monitor by nurses prior to d/c. recommend not to leave AMA but patient insistent. recommend f/u with pcp and brace end [facility] former upon AMA recommend resume PD cath anival and be compliant with daily PD thank you Landon Elias March 18, 2020 11:30
--- NOTE | 2020-03-18 11:30 | NUR ---
NURSE NOTES: Pt. adamant about going home since this morning. made aware, talked to Pt. educating the need to finish course of antibiotics. Pt. signed AMA. Belongings checked signed and filed. Femoral IV removed by dr. Elias. Education given regarding site care. No IV access. Left floor safe via wheelchair, accompanied by CN.
--- NOTE | 2020-03-18 11:41 | Discharge Summary ---
Discharge Summary Hospital Course Date of Admission March 12, 2020 at 19:44 Date of Discharge Admitting Diagnosis RESP DISTRESS HPI Mrs. Bernardo is a 54 YO F with ESRD on PD, IDDM II, essential hypertension, hyperlipidemia and insomnia presenting with chest discomfort and leg swelling. Patient reports that her who assists her with the PD ended up in the hospital 5 days ago and since then she has not received her routine PD. Patient complains of feeling pressure all over her body due to volume overload. Patient also complains of productive cough. Denies any fever, chills, nausea, vomiting diarrhea, dysuria. On arrival to the ED, vitals were significant for BP: 158/72 mmHg. The CMP showed Hyperkalemia: 6.7, BUN: 108 and Cr: 12.5. The UA was significant for highly elevated WBC and 3+ LE. The CXR significant for R pleural effusion and right sided infiltrate suggestive of possible pneumonia. Patient is being admitted for further observation and medical management. Hospital Course Assessment #ESRD on PD; malfunctioning PD cath, acutely requiring HD access s/p placement w / associated hyperkalemia presenting at >6 #R/O COVID vs HCAP vs Pulmonary Edema; CXR cannot rule out underlying lesion #Sepsis; Ddx CAP vs PD cath infection, pending paz cultures, peritoneal fluid studies #Uremia/Metabolic Acidosis #HTN #DMII Plan Consultants include surgery s/p HD access, Cardio, Nephro Continue Vancomycin and Cefepime IV, Paz Cx COVID pending , obtain predictive markers Coreg and Atorvastatin, Lasix PO; adjust prn, BP to improve w/ aggressive HD Weight based insulin dosing, goal blood sugar less then 180 while inpatient, Levemir QHS Obtain and Reconcile home meds Maeve/1800 ADA Diet DVT ppx *F/U with nephro; if patient is going to be transitioning to HD permanently will need to arrange outpatient HD and coordinate w/ CM. 03/18: Patient states she wants to leave AMA. HD cath will be removed. Spoke to nephro who is aware. Discharge Dx #ESRD on PD #HCAP #ESBL UTI #Uremia/Metabolic Acidosis #HTN #DMII Discharge Discharge Vital Signs Last Vital Signs Date Time Temp Pulse Resp B/P (MAP) Pulse Ox O2 Delivery O2 Flow Rate FiO2 03/18/20 09:00 Nasal Cannula 2.0 03/18/20 08:29 74 164/75 03/18/20 08:00 97.9 19 94 Discharge Disposition Patient was discharged to Emilie Dvais D.O. March 18, 2020 11:41
--- NOTE | 2020-03-18 12:16 | Pulmonology Progress Note ---
Subjective ROS Limited/Unobtainable: No Interval Events: None new Constitutional: Reports: fatigue; Denies: fever HEENT: Repors: no symptoms Respiratory: Reports: no symptoms Cardiovascular: Reports: no symptoms Gastrointestinal/Abdominal: Denies: nausea, vomiting, diarrhea Genitourinary: Reports: no symptoms Psychiatric: Denies: depression Skin: Denies: rash Musculoskeletal: Denies: pain Allergies: Coded Allergies: No Known Allergies (Unverified , 11/24/15) Objective Last 24 Hour Vital Signs Date Time Temp Pulse Resp B/P (MAP) Pulse Ox O2 Delivery O2 Flow Rate FiO2 03/18/20 09:00 Nasal Cannula 2.0 03/18/20 08:29 74 164/75 03/18/20 08:28 74 164/75 03/18/20 08:00 97.9 74 19 164/75 (104) 94 03/18/20 04:00 97.5 67 18 168/71 (103) 95 03/17/20 21:00 Nasal Cannula 2.0 03/17/20 20:00 98.1 76 18 145/81 (102) 95 03/17/20 18:38 100.0 03/17/20 16:00 100.0 77 17 155/77 (103) 94 Intake and Output 03/17/20 03/18/20 18:59 06:59 Intake Total 300 ml 250 ml Output Total 4000 ml Balance -3700 ml 250 ml Intake Oral 300 ml 250 ml Hemodialysis UF 4000 ml # Voids 1 General Appearance: no acute distress HEENT: normocephalic Respiratory: chest wall non-tender, lungs clear Cardiovascular: normal peripheral pulses Abdomen: normal bowel sounds Laboratory Tests 03/18/20 05:09: White Blood Count 7.7, Red Blood Count 2.64L, Hemoglobin 8.1L, Hematocrit 23.9L , Mean Corpuscular Volume 90, Mean Corpuscular Hemoglobin 30.7, Mean Corpuscular Hemoglobin Concent 34.0, Red Cell Distribution Width 13.1, Platelet Count 203, Mean Platelet Volume 6.8, Neutrophils (%) (Auto) 69.6, Lymphocytes (% ) (Auto) 16.8L, Monocytes (%) (Auto) 7.5, Eosinophils (%) (Auto) 4.6H, Basophils (%) (Auto) 1.5, Sodium Level 139, Potassium Level 3.9, Chloride Level 99, Carbon Dioxide Level 28, Anion Gap 12, Blood Urea Nitrogen 55H, Creatinine 8.2H, Estimat Glomerular Filtration Rate 5.0, Glucose Level 85, Calcium Level 7.8L, Phosphorus Level 7.8H, Magnesium Level 2.6H, Total Bilirubin 0.3, Aspartate Amino Transf (AST/SGOT) 19, Alanine Aminotransferase (ALT/SGPT) 13, Alkaline Phosphatase 88, Total Protein 6.6, Albumin 2.2L, Globulin 4.4, Albumin/ Globulin Ratio 0.5L, Random Vancomycin Level 22.2 Current Medications Medications (Trade) Dose Ordered Sig/Amarilis Route PRN Reason Start Time Stop Time Status Last Admin Dose Admin Acetaminophen (Tylenol) 650 mg Q4H PRN ORAL Temp >100.5 03/16/20 14:01 04/15/20 14:00 Acetaminophen/ Hydrocodone Bitart (Treece 5/325) 1 tab Q6H PRN ORAL Mild Pain (Pain Scale 1-3) 03/16/20 14:02 03/23/20 14:01 Amlodipine Besylate (Norvasc) 10 mg DAILY ORAL 03/18/20 09:00 04/16/20 08:59 03/18/20 08:28 Atorvastatin Calcium (Lipitor) 40 mg BEDTIME ORAL 03/16/20 21:00 06/11/20 20:59 03/16/20 21:07 Calcium Acetate (Phoslo) 1,334 mg TIAC ORAL 03/17/20 06:30 06/13/20 11:29 03/18/20 06:28 Carvedilol (Coreg) 12.5 mg Q12HR ORAL 03/16/20 21:00 04/15/20 20:59 03/18/20 08:29 Cefepime HCl 1 gm/ Dextrose 55 ml @ 110 mls/hr Q24H IVPB 03/16/20 18:00 03/20/20 17:59 03/17/20 18:04 Clonidine HCl (Catapres Tab) 0.1 mg Q6H PRN ORAL For High Blood Pressure 03/16/20 14:01 06/14/20 14:00 Dextrose (Dextrose 50%) 25 ml Q30M PRN IV Hypoglycemia 03/16/20 14:01 06/14/20 14:00 Dextrose (Dextrose 50%) 50 ml Q30M PRN IV Hypoglycemia 03/16/20 14:00 06/11/20 00:59 Epoetin Gustabo (Epoetin Gustabo(ESRD on dialysis)) 4,000 unit SUN- SUBQ 03/17/20 21:00 06/13/20 20:59 03/17/20 20:57 Furosemide (Lasix) 40 mg DAILY ORAL 03/17/20 09:00 04/12/20 08:59 03/18/20 08:28 Insulin Aspart (NovoLOG) BEFORE MEALS AND HS SUBQ 03/16/20 16:30 06/11/20 06:29 03/16/20 21:07 Insulin Detemir (Levemir) 10 units BEDTIME SUBQ 03/16/20 21:00 06/11/20 01:29 03/17/20 21:24 Ondansetron HCl (Zofran) 4 mg Q6H PRN IVP Nausea & Vomiting 03/16/20 14:04 04/15/20 14:03 Pregabalin (Lyrica) 75 mg BID ORAL 03/16/20 18:00 04/27/20 17:59 03/18/20 08:29 Tramadol HCl (Ultram) 50 mg Q6H PRN ORAL For Pain (4-10) 03/16/20 14:04 03/23/20 14:03 03/18/20 06:27 Vancomycin HCl (Vanco rx to dose) 1 ea DAILY PRN MISC per pharmacy 03/16/20 14:05 04/15/20 14:04 Zolpidem Tartrate (Ambien) 5 mg BEDTIME PRN ORAL Insomnia 03/16/20 14:05 03/23/20 14:04 Assessment/Plan Assessment/Plan IMPRESSION: 1. Large right effusion. 2. Right lung pneumonia. 3. Hyperkalemia. 4. Chronic renal failure on PD. DISCUSSION: Dialysis per renal. Continue broad-spectrum antibiotics, oxygen. Pulmonary hygiene. I will follow carefully. Saturating 92-96% on 2L/min O2 Eh Huynh Omar Syed MD March 18, 2020 12:16
== END 2020-03-18 11:39 | disposition left against medical advice (07) | DRG 871 ==
LOC: EDBD 17:19 → EMR 17:35 → 2E 19:44 → EDBEDREQ 21:42 → 4E 03-16 18:42
PROC: 06HM33Z Insertion of Infusion Device into Right Femoral Vein, Percutaneous Approach (ICD-10-PCS; principal; 2020-03-13)
PROC: 30233N1 Transfusion of Nonautologous Red Blood Cells into Peripheral Vein, Percutaneous Approach (ICD-10-PCS; 2020-03-15)
DX: A41.9 Sepsis, unspecified organism (principal); N18.6 End stage renal disease; J18.9 Pneumonia, unspecified organism; R53.2 Functional quadriplegia; I12.0 Hypertensive chronic kidney disease with stage 5 chronic kidney disease or end stage renal disease; N39.0 Urinary tract infection, site not specified; E87.5 Hyperkalemia; E11.22 Type 2 diabetes mellitus with diabetic chronic kidney disease; E78.5 Hyperlipidemia, unspecified; D63.8 Anemia in other chronic diseases classified elsewhere; E86.0 Dehydration; J45.909 Unspecified asthma, uncomplicated; Y95 Nosocomial condition; Z79.82 Long term (current) use of aspirin; Z79.4 Long term (current) use of insulin; E87.79 Other fluid overload; B95.5 Unspecified streptococcus as the cause of diseases classified elsewhere; G47.00 Insomnia, unspecified; Z99.2 Dependence on renal dialysis; Z91.15 Patient's noncompliance with renal dialysis
CPT/HCPCS: 36415; 71045; 80053; 80202; 81003; 82306; 82550; 82728; 82962; 83540; 83550; 83605; 83735; 83880; 83970; 84100; 84484; 85007; 85025; 85610; 85730; 86706; 86850; 86900; 86901; 86920; 87040; 87081; 87086; 87181; 87635; 93005; 96365; 96367; 96375; 99285; J1815; J2405; S5561